=== PATIENT | female | born 1945 | race Caucasian/White ===

== ENCOUNTER 2023-03-03 09:11 | Outpatient (OUT) | payer MEDICARE, SELFPAY ==
[2023-03-03 09:48] LABS: Basophils Absolute Auto 0.2 10^3/uL (0.0-0.1); Basophils Percent Auto 1.4 % (0.2-2.0); Eosinophils Absolute Auto 0.3 10^3/uL (0.0-0.7); Eosinophils Percent Auto 2.7 % (0.9-7.0); Hematocrit 43.3 % (36.0-48.0); Hemoglobin 14.2 g/dL (12.0-16.0); Immature Granulocytes Abs Auto 0.06 10^3/uL (0.00-0.03); Immature Granulocytes Pct Auto 0.5 % (0.0-0.5); Lymphocytes Absolute Auto 4.6 10^3/uL (1.2-3.8); Lymphocytes Percent Auto 41.1 % (20.5-60.0); Mean Corpuscular HGB Conc 32.8 g/dL (29.9-35.2); Mean Corpuscular Hemoglobin 32.3 pg (26.7-34.0); Mean Corpuscular Volume 98.4 fL (81.0-99.0); Mean Platelet Volume 8.6 fL (9.5-13.5); Monocytes Absolute Auto 1.2 10^3/uL (0.3-0.8); Monocytes Percent Auto 10.6 % (1.7-12.0); Neutrophils Absolute Auto 4.9 10^3/uL (1.4-6.5); Neutrophils Percent Auto 43.7 % (43.0-75.0); Platelet Count 466 10^3/uL (150-450); Red Cell Distribution Width 14.8 % (11.0-15.0); White Blood Count 11.3 10^3/uL (4.0-11.0)
[2023-03-03 10:17] LABS: Alanine Aminotransferase 23 U/L (14-59); Albumin Globulin Ratio 0.9; Albumin Level 3.7 g/dL (3.4-5.0); Alkaline Phosphatase 69 U/L (46-116); Anion Gap 10.1; Aspartate Amino Transferase 16 U/L (15-37); Bilirubin Total 0.3 mg/dL (0.2-1.0); Calcium 9.3 mg/dL (8.5-10.1); Carbon Dioxide 31.7 mmol/L (21.0-32.0); Chloride 105 mmol/L (98-107); Estimated GFR (African America >60 (>=60); Estimated GFR (Non-African Ame >60 (>=60); Globulin 3.9 g/dL; Glucose 98 mg/dL (74-106); Lactate Dehydrogenase 164 U/L (81-234); Potassium 3.8 mmol/L (3.5-5.1); Sodium 143 mmol/L (136-145); Total Protein 7.6 g/dL (6.4-8.2)
== END 2023-03-03 09:12 | disposition home or self-care (01) ==
LOC: LAB 09:16
PROVIDERS: PCP Internal Medicine; Visit Provider Internal Medicine
DX: C83.30 Diffuse large B-cell lymphoma, unspecified site (principal)
CPT/HCPCS: 36415; 80053; 83615; 85025

== ENCOUNTER 2023-03-14 10:26 | Outpatient (OUT) | payer MEDICARE, SELFPAY ==
[2023-03-14 13:29] LABS: Basophils Absolute Auto 0.1 10^3/uL (0.0-0.1); Basophils Percent Auto 1.2 % (0.2-2.0); Eosinophils Absolute Auto 0.2 10^3/uL (0.0-0.7); Eosinophils Percent Auto 1.6 % (0.9-7.0); Hematocrit 45.3 % (36.0-48.0); Hemoglobin 15.1 g/dL (12.0-16.0); Immature Granulocytes Abs Auto 0.06 10^3/uL (0.00-0.03); Immature Granulocytes Pct Auto 0.5 % (0.0-0.5); Lymphocytes Absolute Auto 4.5 10^3/uL (1.2-3.8); Lymphocytes Percent Auto 40.5 % (20.5-60.0); Mean Corpuscular HGB Conc 33.3 g/dL (29.9-35.2); Mean Corpuscular Hemoglobin 32.5 pg (26.7-34.0); Mean Corpuscular Volume 97.4 fL (81.0-99.0); Monocytes Absolute Auto 1.2 10^3/uL (0.3-0.8); Monocytes Percent Auto 10.4 % (1.7-12.0); Neutrophils Absolute Auto 5.1 10^3/uL (1.4-6.5); Neutrophils Percent Auto 45.8 % (43.0-75.0); Platelet Count 420 10^3/uL (150-450); Red Blood Count 4.65 10^6/uL (4.20-5.40); Red Cell Distribution Width 14.6 % (11.0-15.0); White Blood Count 11.2 10^3/uL (4.0-11.0)
[2023-03-14 14:08] LABS: Lactate Dehydrogenase 247 U/L (81-234)
[2023-03-15 14:14] LABS: Albumin 4.1 g/dL (2.9-4.4); Alpha-1-Globulin 0.3 g/dL (0.0-0.4); Alpha-2-Globulin 1.2 g/dL (0.4-1.0); Free Kappa Lt Chains,S 39.6 mg/L (3.3-19.4); Free Lambda Lt Chains,S 19.8 mg/L (5.7-26.3); Gamma Globulin 1.2 g/dL (0.4-1.8); Immunoglobulin A, Qn, Serum 272 mg/dL (64-422); Immunoglobulin G, Qn, Serum 1260 mg/dL (586-1602); Immunoglobulin M, Qn, Serum 55 mg/dL (26-217); Protein, Total 8.1 g/dL (6.0-8.5)
[2023-03-17 16:09] LABS: Immunoglobulin E, Total 25 IU/mL (6-495)
== END 2023-03-14 10:27 | disposition home or self-care (01) ==
LOC: HEMC 10:27
PROVIDERS: PCP Internal Medicine; Visit Provider Internal Medicine Hematology & Oncology
DX: D72.829 Elevated white blood cell count, unspecified (principal); D75.839 Thrombocytosis, unspecified; C50.919 Malignant neoplasm of unspecified site of unspecified female breast; D72.820 Lymphocytosis (symptomatic)
CPT/HCPCS: 36415; 82784; 82785; 83615; 84155; 84165; 85025; 86334; G0463

== ENCOUNTER 2023-04-11 09:14 | Outpatient (OUT) | payer MEDICARE, SELFPAY | END 2023-04-11 09:15 | disposition home or self-care (01) | LOC: HEMC 09:14 | PROVIDERS: PCP Internal Medicine; Visit Provider Internal Medicine Hematology & Oncology | DX: D72.820 Lymphocytosis (symptomatic) (principal); C50.919 Malignant neoplasm of unspecified site of unspecified female breast; D75.839 Thrombocytosis, unspecified; D72.829 Elevated white blood cell count, unspecified | CPT/HCPCS: G0463 ==

== ENCOUNTER 2023-04-19 08:40 | Outpatient (OUT) | payer MEDICARE, SELFPAY ==
--- NOTE | 2023-04-19 08:52 | CT_ITS ---
The [address] [address] Patient Name: ZACK DARBY MRN: [id number] date: 1945 Sex: F Assigned Patient Location: LAB Current Patient Location: LAB Accession/Order Number: [id number] Exam Date: 04/19/2023 10:10 Report Date: 04/19/2023 11:26 At the request of: GUILLERMO URBINA Procedure: CT abdomen pelvis w con EXAM: CT abdomen pelvis w con HISTORY: Splenic Lymphoma, Abdominal Pain COMPARISON: None. TECHNIQUE: Axial CT images were obtained of the abdomen and pelvis with intravenous contrast. Multiplanar reconstructions were performed. ABDOMEN/PELVIS FINDINGS: Lower Chest: Unremarkable. Liver: Normal enhancement and contour. Biliary/Gallbladder: Prior cholecystectomy. Pancreas: Unremarkable. Spleen: Prior splenectomy. Adrenal Glands: Unremarkable. Kidneys: Cortical scarring is present at the upper pole of the left kidney. Gastrointestinal/Peritoneum: No acute abnormality. Moderate colonic diverticulosis is present. The appendix is not discretely visualized. No free air or free fluid. Vascular: There are mild to moderate scattered atherosclerotic calcifications. Lymph Nodes: No enlarged lymph nodes by CT size criteria. Pelvic Organs: Prior hysterectomy. Bladder: Unremarkable. Bones: No acute osseous abnormality. Moderate multilevel degenerative changes are present in the visualized spine. Soft tissues: Unremarkable. CT/CT abdomen pelvis w con IMPRESSION: 1. No acute abnormality of the abdomen and pelvis. 2. Prior splenectomy. 3. No evidence of lymphadenopathy. 4. Moderate colonic diverticulosis. 5. Prior cholecystectomy and hysterectomy. 6. Chronic scarring at the upper pole of the left kidney. Electronically authenticated by: ANTONIO THOMPSON Date: 04/19/2023 11:26
[2023-04-19 09:05] LABS: Estimated GFR (African America >60 (>=60); Estimated GFR (Non-African Ame >60 (>=60)
== END 2023-04-19 08:41 | disposition home or self-care (01) ==
LOC: LAB 08:41
PROVIDERS: PCP Internal Medicine; Visit Provider Internal Medicine Hematology & Oncology
DX: C50.919 Malignant neoplasm of unspecified site of unspecified female breast (principal); D72.820 Lymphocytosis (symptomatic); D75.839 Thrombocytosis, unspecified; D72.829 Elevated white blood cell count, unspecified; Z90.49 Acquired absence of other specified parts of digestive tract; K57.30 Diverticulosis of large intestine without perforation or abscess without bleeding; Z90.81 Acquired absence of spleen
CPT/HCPCS: 36415; 74177; 82565; 84520; Q9967

== ENCOUNTER 2023-05-09 07:44 | Outpatient (RCR) | payer MEDICARE, SELFPAY | END 2023-05-20 23:59 | disposition home or self-care (01) | LOC: INF 07:44 | PROVIDERS: PCP Internal Medicine; Visit Provider Internal Medicine Hematology & Oncology | DX: D72.829 Elevated white blood cell count, unspecified (principal); D75.839 Thrombocytosis, unspecified; C50.919 Malignant neoplasm of unspecified site of unspecified female breast; D72.820 Lymphocytosis (symptomatic) | CPT/HCPCS: G0463 ==

== ENCOUNTER 2023-07-07 13:48 | Outpatient (OUT) | payer MEDICARE, SELFPAY ==
--- NOTE | 2023-07-07 13:54 | MM_ITS ---
Patient Name: ZACK DARBY MR#: [id number] : 1945 Exam Date: 07/07/2023 Ordering Doctor: Shaikh Fidel Sales . RADIOLOGY REPORT PROCEDURE: MM TOMOSYNTHESIS SCREENING BI COMPARISON: MG MAMM SCREEN 3D JUAN MANUEL CAD, 06/28/2021. MG MAMM SCREEN 3D JUAN MANUEL CAD, 07/06/2022. INDICATIONS: Screening Calculator Name NCI Breast Cancer Risk Assessment Tool 5 Year Breast Cancer Risk 8.00% Lifetime Breast Cancer Risk 12.90% Personal Breast Cancer No Personal Ovarian Cancer No Treatments Spleenectomy, Chemo, Radiation Family Cancers Sister with breast cancer at age 45; Sister with breast cancer at age 77; Mother with multiple myeloma cancer at age ~72; Father with rectal cancer at age 62; Brother with prostate cancer at age 75; Brother with unknown cancer at age ~70. LOCATION: [facility] BREAST COMPOSITION: Heterogeneously dense,which may obscure small masses. FINDINGS: DIAGNOSTIC CATEGORY 2--BENIGN FINDING. NO CHANGE FROM COMPARISON. Scattered benign-appearing nodules are present. Scattered benign-appearing calcifications are present. RIGHT BREAST: No significant suspicious finding. LEFT BREAST: No significant suspicious finding. RECOMMENDATIONS: ROUTINE MAMMOGRAM AND CLINICAL EVALUATION IN 12 MONTHS. PLEASE NOTE: A NORMAL MAMMOGRAM DOES NOT EXCLUDE THE POSSIBILITY OF BREAST CANCER. A CLINICALLY SUSPICIOUS PALPABLE LUMP SHOULD BE BIOPSIED. Dictated by: Cristhian Jimenez MD on 07/07/2023 at 15:09 Approved by: Cristhian Jimenez MD on 07/07/2023 at 15:10
== END 2023-07-07 13:49 | disposition home or self-care (01) ==
LOC: MAMMO 13:50
PROVIDERS: PCP Internal Medicine; Visit Provider Internal Medicine
DX: Z12.31 Encounter for screening mammogram for malignant neoplasm of breast (principal); Z80.3 Family history of malignant neoplasm of breast; Z80.7 Family history of other malignant neoplasms of lymphoid, hematopoietic and related tissues; Z80.42 Family history of malignant neoplasm of prostate; Z80.9 Family history of malignant neoplasm, unspecified; Z80.8 Family history of malignant neoplasm of other organs or systems
CPT/HCPCS: 77063; 77067

== ENCOUNTER 2023-10-24 11:35 | Outpatient (OUT) | payer OTHER, SELFPAY ==
--- OUTSIDE RECORDS SUMMARY | 2023-10-24 11:53 | XMS_ITS | CCD ---
Author Name Unknown Address [address] [place] [address] Organization [facility] Care Team Providers Care Project Leader Name Role Phone WEST, DR MAMIE Arreola Consulting Unavailable HOUSE, DR ZUNIGA Attending Unavailable HOUSE, DR ZUNIGA Admitting Unavailable HOUSE, DR ZUNIGA Primary Care Unavailable HOUSE, DR ZUNIGA Consulting Unavailable HOUSE, DR ZUNIGA Primary Care Unavailable HOUSE, DR ZUNIGA Consulting Unavailable HOUSE, DR ZUNIGA Attending Unavailable HOUSE, DR ZUNIGA Admitting Unavailable FAWWAD, Attending Unavailable FAWWAD, Attending Unavailable Allergies Allergy Classification Reported Allergen(s) Allergy Type Date of Onset Reaction(s) Facility (1 source) Latex Drug allergy (disorder) [facility] Rep[facility] Problems Problem Classification Problem Date Documented Date Episodic/Chronic Malaise and fatigue (1 source) Other fatigue; Translations: [OTHER FATIGUE] Onset: 06-12-2022 Episodic Non-Hodgkin`s lymphoma (4 sources) Unspecified B-cell lymphoma, unspecified site; Translations: [UNS B-CELL LYMPHOMA UNSPECIFIE SITE] Onset: 06-08-2022 Chronic Other screening for suspected conditions (not mental disorders or infectious disease) (4 sources) Encounter for screening mammogram for malignant neoplasm of breast; Translations: [ENC SCR MAMMO MALIG NEOPLASM BREAST] Onset: 07-06-2022 Episodic Residual codes; unclassified (1 source) Family history of malignant neoplasm of breast; Translations: [FAMILY HX MALIG NEOPLASM OF BREAST] Onset: 07-09-2022 Episodic Residual codes; unclassified (1 source) Family history of other malignant neoplasms of lymphoid, hematopoietic and related tissues; Translations: [FAM HX OTH MAL MARCUS LYMPH HEMATPOETC] Onset: 07-09-2022 Episodic Residual codes; unclassified (1 source) Family history of malignant neoplasm of digestive organs; Translations: [FAM HX MALIG NEOPLASM DIGESTIV ORGN] Onset: 07-09-2022 Episodic Residual codes; unclassified (1 source) Family history of malignant neoplasm of prostate; Translations: [FAMILY HX MALIG NEOPLASM PROSTATE] Onset: 07-09-2022 Episodic Residual codes; unclassified (1 source) Family history of malignant neoplasm, unspecified; Translations: [FAM HX MALIGNANT NEOPLASM UNS] Onset: 07-09-2022 Episodic Results Test Name Value Interpretation Reference Range Facil ity MG MAMM SCREEN 3D JUAN MANUEL CADon 07-06-2022 MG MAMM SCREEN 3D JUAN MANUEL CAD Patient: ZACK DARBY Exam Date: 07/06/2022 : 1945 Gender:F Ordering : DR EFRAIN HOGAN DJeremy Admission #: [id number] Family : Order #: [id number] CLICK HERE TO VIEW EXAM RADIOLOGY REPORT PROCEDURE: MAMMOGRAM SCREENING 3D BILATERAL CAD COMPARISON: MG MAMM SCREEN 3D JUAN MANUEL CAD, 06/28/2021. MG MAMM SCREEN JUAN MANUEL W CAD, 06/26/2020. INDICATIONS: Screening mammography Calculator Name NCI Breast Cancer Risk Assessment Tool 5 Year Breast Cancer Risk 8.10% Lifetime Breast Cancer Risk 14.10% Personal Breast Cancer No Personal Ovarian Cancer No Treatments Spleenectomy, Chemo, Radiation Family Cancers Sister with breast cancer at age 45; Sister with breast cancer at age 77; Mother with multiple myeloma cancer at age 72; Father with rectal cancer at age 62; Brother with prostate cancer at age 75; Brother with unknown cancer at age 70. LOCATION: [facility] BREAST COMPOSITION: Heterogeneously dense,which may obscure small masses. FINDINGS: DIAGNOSTIC CATEGORY 2--BENIGN FINDING. NO CHANGE FROM COMPARISON. Scattered benign-appearing nodules are present. Scattered benign-appearing calcifications are present. Scattered benign-appearing lymph nodes are present. RIGHT BREAST: No significant suspicious finding. LEFT BREAST: No significant suspicious finding. RECOMMENDATIONS: ROUTINE MAMMOGRAM AND CLINICAL EVALUATION IN 12 MONTHS. PLEASE NOTE: A NORMAL MAMMOGRAM DOES NOT EXCLUDE THE POSSIBILITY OF BREAST CANCER. A CLINICALLY SUSPICIOUS PALPABLE LUMP SHOULD BE BIOPSIED. Dictated by: Mamie Freeman MD on 07/06/2022 at 15:11 Approved by: Mamie Freeman MD on 07/06/2022 at 15:13 Normal [facility] CBC AUTO DIFFon 06-08-2022 BASO # 0.1 103/ul Normal 0.0-0.1 [facility] Comment on above: Performed By: #### C BC #### [facility] [address] [address] [address] Suzi Pal Basophils/100 WBC (Bld) 1.2 % Normal 0.2-2.0 [facility] Comment on above: Performed By: #### C BC #### [facility] [address] [place] [address] Dr. Suzi Pal EO # 0.3 103/ul Normal 0.0-0.7 [facility] Comment on above: Performed By: #### C BC #### [facility] [address] [place] [address] Dr. Suzi Pal Eosinophils/100 WBC (Bld) 2.5 % Normal 0.9-7.0 [facility] Comment on above: Performed By: #### C BC #### [facility] [address] [place] [address] Dr. Suzi Pal Erythrocyte distribution width (RBC) [Ratio] 14.6 % Normal 11.0-15.0 [facility] Comment on above: Performed By: #### C BC #### [facility] [address] [place] [address] Dr. Suzi Pal Hematocrit (Bld) [Volume fraction] 43.7 % Normal 36.0-48.0 [facility] Comment on above: Performed By: #### C BC #### [facility] [address] [place] [address] Dr. Suzi Pal Hemoglobin (Bld) [Mass/Vol] 14.5 g/dL Normal 12.0-16.0 [facility] Comment on above: Performed By: #### C BC #### [facility] [address] [place] [address] Dr. Suzi Pal IG # 0.03 10e3/ul Normal 0.00-0.03 [facility] Comment on above: Performed By: #### C BC #### [facility] [address] [place] [address] Dr. Suzi Pal IG % 0.3 % Normal 0.0-0.5 [facility] Comment on above: Performed By: #### C BC #### [facility] [address] [address] [address] Suzi Pal LYMPH # 4.6 103/ul Critically high 1.2-3.8 [facility] Comment on above: Performed By: #### C BC #### [facility] [address] [place] [address] Dr. Suzi Pal Lymphocytes/100 WBC (Bld) 44.0 % Normal 20.5-60.0 [facility] Comment on above: Performed By: #### C BC #### [facility] [address] [place] [address] Dr. Suzi Pal MANUAL DIFF REQ NO Normal [facility] Comment on above: Performed By: #### C BC #### [facility] [address] [place] [address] Dr. Suzi Pal MCH (RBC) [Entitic mass] 32.4 pg Normal 26.7-34.0 [facility] Comment on above: Performed By: #### C BC #### [facility] [address] [place] [address] Dr. Suzi Pal MCHC (RBC) [Mass/Vol] 33.2 g/dL Normal 29.9-35.2 [facility] Comment on above: Performed By: #### C BC #### [facility] [address] [place] [address] Dr. Suzi Pal MCV (RBC) [Entitic vol] 97.8 fL Normal 81.0-99.0 [facility] Comment on above: Performed By: #### C BC #### [facility] [address] [place] [address] Dr. Suzi Pal MONO # 1.1 103/ul Critically high 0.3-0.8 [facility] Comment on above: Performed By: #### C BC #### [facility] [address] [place] [address] Dr. Suzi Pal Monocytes/100 WBC (Bld) 10.5 % Normal 1.7-12.0 [facility] Comment on above: Performed By: #### C BC #### [facility] [address] [place], [place] [id number] Dr. Suzi Pal NEUT # 4.3 103/ul Normal 1.4-6.5 [facility] Comment on above: Performed By: #### C BC #### [facility] [address] [place] [address] Dr. Suzi Pal Neutrophils/100 WBC (Bld) 41.5 % Critically low 43.0-75.0 [facility] Comment on above: Performed By: #### C BC #### [facility] [address] [place] [address] Dr. Suzi Pal Platelet mean volume (Bld) [Entitic vol] 8.9 fL Critically low 9.5-13.5 [facility] Comment on above: Performed By: #### C BC #### [facility] [address] [place] [address] Dr. Suzi Pal PLT 414 103/ul Normal 150-450 [facility] Comment on above: Performed By: #### C BC #### [facility] [address] [place] [address] Dr. Suzi Pal RBC 4.47 106/ul Normal 4.20-5.40 [facility] Comment on above: Performed By: #### C BC #### [facility] [address] [place] [address] Dr. Suzi Pal WBC 10.4 103/ul Normal 4.0-11.0 [facility] Comment on above: Performed By: #### C BC #### [facility] [address] [place] [address] Dr. Suzi Pal PROF 14(COMP METB)on 022 Albumin [Mass/Vol] 3.8 g/dL Normal 3.4-5.0 [facility] Comment on above: Performed By: #### T 4, CMP, TSH #### [facility] [address] [place] [address] Dr. Suzi Pal Albumin/Globulin [Mass ratio] 0.9 {ratio} Normal [facility] Comment on above: Performed By: #### T 4, CMP, TSH #### [facility] [address] [place] [address] Dr. Suzi Pal ALP [Catalytic activity/Vol] 68 U/L Normal 46-116 [facility] Comment on above: Performed By: #### T 4, CMP, TSH #### [facility] [address] [place] [address] Dr. Suzi Pal ALT [Catalytic activity/Vol] 23 U/L Normal 14-59 [facility] Comment on above: Performed By: #### T 4, CMP, TSH #### [facility] [address] [place] [address] Dr. Suzi Pal Anion gap [Moles/Vol] 11.0 mmol/L Normal [facility] Comment on above: Performed By: #### T 4, CMP, TSH #### [facility] [address] [place] [address] Dr. Suzi Pal AST [Catalytic activity/Vol] 16 U/L Normal 15-37 [facility] Comment on above: Performed By: #### T 4, CMP, TSH #### [facility] [address] [place] [address] Dr. Suzi Pal Bilirubin [Mass/Vol] 0.5 mg/dL Normal 0.2-1.0 [facility] Comment on above: Performed By: #### T 4, CMP, TSH #### [facility] [address] [place] [address] Dr. Suzi Pal Calcium [Mass/Vol] 9.6 mg/dL Normal 8.5-10.1 [facility] Comment on above: Performed By: #### T 4, CMP, TSH #### [facility] [address] [place] [address] Dr. Suzi Pal Chloride [Moles/Vol] 103 mmol/L Normal 98-107 [facility] Comment on above: Performed By: #### T 4, CMP, TSH #### [facility] [address] [place] [address] Dr. Suzi Pal CO2 [Moles/Vol] 31.8 mmol/L Normal 21.0-32.0 [facility] Comment on above: Performed By: #### T 4, CMP, TSH #### [facility] [address] [address] [address] Suzi Pal Creatinine [Mass/Vol] 0.75 mg/dL Normal 0.55-1.02 [facility] Comment on above: Performed By: #### T 4, CMP, TSH #### [facility] [address] [address] [address] Suzi Pal EGFR-AF MACANESE >60 Normal >=60 [facility] Comment on above: Performed By: #### T 4, CMP, TSH #### [facility] [address] [address] [address] Suzi Pal EGFR-NON AF MACANESE >60 Normal >=60 [facility] Comment on above: Performed By: #### T 4, CMP, TSH #### [facility] [address] [address] [address] Suzi Pal Globulin (S) [Mass/Vol] 4.0 g/dL Normal [facility] Comment on above: Performed By: #### T 4, CMP, TSH #### [facility] [address] [address] [address] Suzi Pal Glucose [Mass/Vol] 88 mg/dL Normal 74-106 [facility] Comment on above: Performed By: #### T 4, CMP, TSH #### [facility] [address] [address] [address] Suzi Pal Potassium [Moles/Vol] 3.8 mmol/L Normal 3.5-5.1 [facility] Comment on above: Performed By: #### T 4, CMP, TSH #### [facility] [address] [address] [address] Suzi Pal Protein [Mass/Vol] 7.8 g/dL Normal 6.4-8.2 [facility] Comment on above: Performed By: #### T 4, CMP, TSH #### [facility] [address] [address] [address] Suzi Pal Sodium [Moles/Vol] 142 mmol/L Normal 136-145 [facility] Comment on above: Performed By: #### T 4, CMP, TSH #### [facility] [address] [address] [address] Suzi Pal Urea nitrogen [Mass/Vol] 15.0 mg/dL Normal 7.0-18.0 [facility] Comment on above: Performed By: #### T 4, CMP, TSH #### [facility] [address] [address] [address] Suzi Pal Urea nitrogen/Creatinin e [Mass ratio] 20.0 mg/mg Normal [facility] Comment on above: Performed By: #### T 4, CMP, TSH #### [facility] [address] [place] [address] Dr. Suzi Pal T4on 06-08-2022 T4 [Mass/Vol] 7.80 ug/dL Normal 4.80-13.90 [facility] Comment on above: Performed By: #### T 4, CMP, TSH #### [facility] [address] [place] [address] Dr. Suzi Pal TSHon 06-08-2022 TSH 2.655 uIU/mL Normal 0.358-3.740 [facility] Comment on above: Performed By: #### T 4, CMP, TSH #### [facility] [address] [place] [address] Dr. Suzi Pal Complete Blood Count Auto Di ffon 04-06-2021 Basophils (Bld) [#/Vol] 0.2 10*3/uL Normal 0.0-0.2 [facility] Comment on above: Result Comment: PERF ORMED BY: [place] [id number] PATHOLOGIST RELATIONS COORDINATOR MORGAN MARTINEZ M.D. Performed By: #### C BC #### [facility] [address] [place] [address] [place] Basophils/100 WBC (Bld) 1.6 % Normal . [facility] Comment on above: Performed By: #### C BC #### [facility] [address] [place] [address] [place] Eosinophils (Bld) [#/Vol] 0.2 10*3/uL Normal 0.0-0.45 [facility] Comment on above: Performed By: #### C BC #### [facility] [address] Eosinophils/100 WBC (Bld) 1.7 % Normal . [facility] Comment on above: Performed By: #### C BC #### [facility] [address] Erythrocyte distribution width (RBC) [Ratio] 14.0 % Normal 11.9-15.3 [facility] Comment on above: Performed By: #### C BC #### [address] Hematocrit (Bld) [Volume fraction] 43.2 % Normal 34.0-46.4 [facility] Comment on above: Performed By: #### C BC #### [address] Hemoglobin (Bld) [Mass/Vol] 14.5 g/dL Normal 11.8-15.4 [facility] Comment on above: Performed By: #### C BC #### [address] Lymphocytes (Bld) [#/Vol] 4.9 10*3/uL High 1.00-4.8 [facility] Comment on above: Performed By: #### C BC #### [address] Lymphocytes/100 WBC (Bld) 46.0 % Normal . [facility] Comment on above: Performed By: #### C BC #### [address] MCH (RBC) [Entitic mass] 32.8 pg Normal 24.7-34.3 [facility] Comment on above: Performed By: #### C BC #### [address] MCV (RBC) [Entitic vol] 97.9 fL Normal 80-100 [facility] Comment on above: Performed By: #### C BC #### [facility] [address] Mean Corpuscular HGB Conc 33.5 g/dL Normal 32.0-35.0 [facility] Comment on above: Performed By: #### C BC #### [facility] [address] Monocytes (Bld) [#/Vol] 1.2 10*3/uL High 0.0-0.8 [facility] Comment on above: Performed By: #### C BC #### [facility] [address] Monocytes/100 WBC (Bld) 11.3 % Normal . [facility] Comment on above: Performed By: #### C BC #### [facility] [address] Neutrophils (Bld) [#/Vol] 4.2 10*3/uL Normal 1.8-7.7 [facility] Comment on above: Performed By: #### C BC #### [address] Neutrophils/100 WBC (Bld) 39.4 % Normal . [facility] Comment on above: Performed By: #### C BC #### [address] Nucleated RBC/100 WBC (Bld) [Ratio] 0.1 % Normal 0-0.5 [facility] Comment on above: Performed By: #### C BC #### [facility] [address] Platelet mean volume (Bld) [Entitic vol] 6.9 fL Normal 6.3-10.7 [facility] Comment on above: Performed By: #### C BC #### [facility] [address] [place] [address] [place] Platelets (Bld) [#/Vol] 445 10*3/uL Normal 150-450 [facility] Comment on above: Performed By: #### C BC #### [place] [address] [place] RBC (Bld) [#/Vol] 4.41 10*6/uL Normal 3.60-5.00 [facility] Comment on above: Performed By: #### C BC #### [facility] [address] [id number] [facility] WBC (Bld) [#/Vol] 10.8 10*3/uL Normal 4.5-11.0 [facility] Comment on above: Performed By: #### C BC #### [facility] [address] [place] [address] [facility] Encounters Encounter Date Encounter Type Care Provider Facility Start: 08-22-2023 End: 08-22-2023 ambulatory SHAIKH SCOTT Not Available Start: 08-02-2023 End: 08-02-2023 ambulatory SHAIKH SCOTT Not Available Start: 07-06-2022 End: 07-07-[address] MAMIE FREEMAN Facility:[facility] Start: 06-08-2022 End: 06-09-[address] EFRAIN HOGAN Facility:[facility] Payers Date Payer Category Payer Unknown [id number] 1945 Unknown [id number] [id number] [id number] 1945 Unknown [id number] [id number] 1945 Unknown [id number] 1945 Unknown [id number] Summary Purpose Family History No Family History Records FoundNo Family History Records FoundNo Family History Records Found Advance Directives No Advanced Directives Records FoundNo Advanced Directives Records FoundNo Advanced Directives Records Found Additional Source Comments INFORMATION SOURCE (unrecogn ized section and content) DATE CREATED AUTHOR 04/15/2021 [facility] DATE CREATED AUTHOR AUTHOR'S ORGANIZ ATION 07/10/2022 [facility] DATE CREATED AUTHOR AUTHOR'S ORGANIZ ATION 08/23/2023 [facility] FOR RECORDS PERTAINING TO PATIENTS WHO ARE OR HAVE BEEN ENROLLED IN A CHEMICAL DEPENDENCY/SUBSTANCEABUSE PROGRAM, SOME INFORMATION MAY BE OMITTED. This clinical summary was aggregated from multiple sources. Caution should be exercised in using it in the provision of clinical care. This summary normalizes information from multiple sources, and as a consequence, information in this document may materially change the coding, format and clinical context of patient data. In addition, data may be omitted in some cases. CLINICAL DECISIONS SHOULD BE BASED ON THE PRIMARY CLINICAL RECORDS. [facility] [employer] [facility]. provides no warranty or guarantee of the accuracy or completeness of information in this document.
[2023-10-24 12:09] LABS: Basophils Absolute Auto 0.2 10^3/uL (0.0-0.1); Eosinophils Absolute Auto 0.3 10^3/uL (0.0-0.7); Eosinophils Percent Auto 1.9 % (0.9-7.0); Hemoglobin 13.6 g/dL (12.0-16.0); Immature Granulocytes Abs Auto 0.05 10^3/uL (0.00-0.03); Immature Granulocytes Pct Auto 0.3 % (0.0-0.5); Lymphocytes Absolute Auto 4.7 10^3/uL (1.2-3.8); Lymphocytes Percent Auto 30.3 % (20.5-60.0); Mean Corpuscular HGB Conc 32.4 g/dL (29.9-35.2); Mean Corpuscular Hemoglobin 31.9 pg (26.7-34.0); Mean Corpuscular Volume 98.4 fL (81.0-99.0); Mean Platelet Volume 9.2 fL (9.5-13.5); Monocytes Absolute Auto 1.9 10^3/uL (0.3-0.8); Monocytes Percent Auto 12.5 % (1.7-12.0); Neutrophils Absolute Auto 8.4 10^3/uL (1.4-6.5); Platelet Count 398 10^3/uL (150-450); Red Blood Count 4.27 10^6/uL (4.20-5.40); Red Cell Distribution Width 14.9 % (11.0-15.0); White Blood Count 15.5 10^3/uL (4.0-11.0)
[2023-10-24 12:57] LABS: Lactate Dehydrogenase 158 U/L (81-234)
[2023-10-25 15:08] LABS: Albumin 3.7 g/dL (2.9-4.4); Alpha-1-Globulin 0.3 g/dL (0.0-0.4); Gamma Globulin 1.1 g/dL (0.4-1.8); Immunoglobulin A, Qn, Serum 239 mg/dL (64-422); Immunoglobulin G, Qn, Serum 1109 mg/dL (586-1602); Immunoglobulin M, Qn, Serum 53 mg/dL (26-217); Protein, Total 7.3 g/dL (6.0-8.5)
== END 2023-10-24 11:36 | disposition home or self-care (01) ==
LOC: LAB 11:37
PROVIDERS: PCP Internal Medicine; Visit Provider Internal Medicine Hematology & Oncology
DX: D72.829 Elevated white blood cell count, unspecified (principal); D75.839 Thrombocytosis, unspecified; D72.820 Lymphocytosis (symptomatic)
CPT/HCPCS: 36415; 82784; 83615; 84155; 84165; 85025; 86334

== ENCOUNTER 2023-11-14 11:15 | Outpatient (OUT) | payer OTHER, SELFPAY ==
--- OUTSIDE RECORDS SUMMARY | 2023-11-13 15:33 | XMS_ITS | CCD ---
Author Organization [facility] Care Team Providers Care Cert Pharmacy Tech Name Role Phone WEST, DR MAMIE Arreola Consulting Unavailable HOUSE, DR ZUNIGA Attending Unavailable HOUSE, DR ZUNIGA Admitting Unavailable HOUSE, DR ZUNIGA Primary Care Unavailable HOUSE, DR ZUNIGA Consulting Unavailable HOUSE, DR ZUNIGA Primary Care Unavailable HOUSE, DR ZUNIGA Consulting Unavailable HOUSE, DR ZUNIGA Attending Unavailable HOUSE, DR ZUNIGA Admitting Unavailable FAWWAD, Attending Unavailable FAWWAD, Attending Unavailable FAWWAD, Attending Unavailable Allergies Allergy Classification Reported Allergen(s) Allergy Type Date of Onset Reaction(s) Facility (1 source) Latex Drug allergy (disorder) [facility] Repository Problems Problem Classification Problem Date [...] 07/06/2022 : 1945 Gender:F Ordering : DR ERFAIN HOGAN DDanieleODaniele Admission #: [id number] Family : Order #: [id number] CLICK HERE TO VIEW EXAM RADIOLOGY REPORT [...] unknown cancer at age 69. LOCATION: [facility] BREAST COMPOSITION: Heterogeneously dense,which may obscure [...] MD on 07/06/2022 at 15:13 Normal [facility] CBC AUTO DIFFon 06-08-2022 BASO # 0.1 103/ul Normal 0.0-0.1 [facility] Comment on above: Performed By: #### C BC #### [facility] [address] [place] [address] Dr. Suzi Pal Basophils/100 WBC (Bld) 1.2 % Normal 0.2-2.0 [facility] Comment on above: Performed By: #### C BC #### [facility] [address] [place] [address] Dr. Suzi Pal EO # 0.3 103/ul Normal 0.0-0.7 [facility] Comment on above: Performed By: #### C BC #### [facility] [address] [place] [address] Dr. Suzi Pal Eosinophils/100 WBC (Bld) 2.5 % Normal 0.9-7.0 [facility] Comment on above: Performed By: #### C BC #### [facility] [address] [place] [address] Dr. Suzi Pal Erythrocyte distribution width (RBC) [Ratio] 14.6 % Normal 11.0-15.0 [facility] Comment on above: Performed By: #### C BC #### [facility] [address] [place] [address] Dr. Suzi Pal Hematocrit (Bld) [Volume fraction] 43.7 % Normal 36.0-48.0 [facility] Comment on above: Performed By: #### C BC #### [facility] [address] [place] [address] Dr. Suzi Pal Hemoglobin (Bld) [Mass/Vol] 14.5 g/dL Normal 12.0-16.0 [facility] Comment on above: Performed By: #### C BC #### [facility] [address] [place] [address] Dr. Suzi Pal IG # 0.03 10e3/ul Normal 0.00-0.03 [facility] Comment on above: Performed By: #### C BC #### [facility] [address] [place] [address] Dr. Suzi Pal IG % 0.3 % Normal 0.0-0.5 [facility] Comment on above: Performed By: #### C BC #### [facility] [address] [place] [address] Dr. Suzi Pal LYMPH # 4.6 103/ul Critically high 1.2-3.8 [facility] Comment on above: Performed By: #### C BC #### [facility] [address] [place] [address] Dr. Suzi Pal Lymphocytes/100 WBC (Bld) 44.0 % Normal 20.5-60.0 [facility] Comment on above: Performed By: #### C BC #### [facility] [address] [place] [address] Dr. Suzi Pal MANUAL DIFF REQ NO Normal [facility] Comment on above: Performed By: #### C BC #### [facility] [address] [place] [address] Dr. Suzi Pal MCH (RBC) [Entitic mass] 32.4 pg Normal 26.7-34.0 [facility] Comment on above: Performed By: #### C BC #### [facility] [address] [place] [address] Dr. Suzi Pal MCHC (RBC) [Mass/Vol] 33.2 g/dL Normal 29.9-35.2 [facility] Comment on above: Performed By: #### C BC #### [facility] [address] [place] [address] Dr. Suzi Pal MCV (RBC) [Entitic vol] 97.8 fL Normal 81.0-99.0 [facility] Comment on above: Performed By: #### C BC #### [facility] [address] [place] [address] Dr. Suzi Pal MONO # 1.1 103/ul Critically high 0.3-0.8 [facility] Comment on above: Performed By: #### C BC #### [facility] [address] [place] [address] Dr. Suzi Pal Monocytes/100 WBC (Bld) 10.5 % Normal 1.7-12.0 [facility] Comment on above: Performed By: #### C BC #### [facility] [address] [place] [address] Dr. Suzi Pal NEUT # 4.3 103/ul Normal 1.4-6.5 [facility] Comment on above: Performed By: #### C BC #### [facility] [address] [place] [address] Dr. Suzi Pal Neutrophils/100 WBC (Bld) 41.5 % Critically low 43.0-75.0 [facility] Comment on above: Performed By: #### C BC #### [facility] [address] [place] [address] Dr. Suzi Pal Platelet mean volume (Bld) [Entitic vol] 8.9 fL Critically low 9.5-13.5 [facility] Comment on above: Performed By: #### C BC #### [facility] [address] [place] [address] Dr. Suzi Pal PLT 414 103/ul Normal 150-450 [facility] Comment on above: Performed By: #### C BC #### [facility] [address] [place] [address] Dr. Suzi Pal RBC 4.47 106/ul Normal 4.20-5.40 [facility] Comment on above: Performed By: #### C BC #### [facility] [address] [place] [address] Dr. Suzi Pal WBC 10.4 103/ul Normal 4.0-11.0 [facility] Comment on above: Performed By: #### C BC #### [facility] [address] [place] [address] Dr. Suzi Pal PROF 14(COMP METB)on 022 Albumin [Mass/Vol] 3.8 g/dL Normal 3.4-5.0 [facility] Comment on above: Performed By: #### T 4, CMP, TSH #### [facility] [address] [place] [address] Dr. Suzi Pal Albumin/Globulin [Mass ratio] 0.9 {ratio} Normal [facility] Comment on above: Performed By: #### T 4, CMP, TSH #### [facility] [address] [place] [address] Dr. Suzi Pal ALP [Catalytic activity/Vol] 68 U/L Normal 46-116 [facility] Comment on above: Performed By: #### T 4, CMP, TSH #### [facility] [address] [place] [address] Dr. Suzi Pal ALT [Catalytic activity/Vol] 23 U/L Normal 14-59 [facility] Comment on above: Performed By: #### T 4, CMP, TSH #### [facility] [address] [place] [address] Dr. Suzi Pal Anion gap [Moles/Vol] 11.0 mmol/L Normal [facility] Comment on above: Performed By: #### T 4, CMP, TSH #### [facility] [address] [place] [address] Dr. Suzi Pal AST [Catalytic activity/Vol] 16 U/L Normal 15-37 [facility] Comment on above: Performed By: #### T 4, CMP, TSH #### [facility] [address] [place] [address] Dr. Suzi Pal Bilirubin [Mass/Vol] 0.5 mg/dL Normal 0.2-1.0 [facility] Comment on above: Performed By: #### T 4, CMP, TSH #### [facility] [address] [place] [address] Dr. Suzi Pal Calcium [Mass/Vol] 9.6 mg/dL Normal 8.5-10.1 [facility] Comment on above: Performed By: #### T 4, CMP, TSH #### [facility] [address] [place] [address] Dr. Suzi Pal Chloride [Moles/Vol] 103 mmol/L Normal 98-107 [facility] Comment on above: Performed By: #### T 4, CMP, TSH #### [facility] [address] [place] [address] Dr. Suzi Pal CO2 [Moles/Vol] 31.8 mmol/L Normal 21.0-32.0 [facility] Comment on above: Performed By: #### T 4, CMP, TSH #### [facility] [address] [address] [address] Suzi Pal Creatinine [Mass/Vol] 0.75 mg/dL Normal 0.55-1.02 [facility] Comment on above: Performed By: #### T 4, CMP, TSH #### [facility] [address] [place] [address] Dr. Suzi Pal EGFR-AF GUAMANIAN >60 Normal >=60 [facility] Comment on above: Performed By: #### T 4, CMP, TSH #### [facility] [address] [address] [address] Suzi Pal EGFR-NON AF GUAMANIAN >60 Normal >=60 [facility] Comment on above: Performed By: #### T 4, CMP, TSH #### [facility] [address] [place] [address] Dr. Suzi Pal Globulin (S) [Mass/Vol] 4.0 g/dL Normal [facility] Comment on above: Performed By: #### T 4, CMP, TSH #### [facility] [address] [place] [address] Dr. Suzi Pal Glucose [Mass/Vol] 88 mg/dL Normal 74-106 [facility] Comment on above: Performed By: #### T 4, CMP, TSH #### [facility] [address] [place] [address] Dr. Suzi Pal Potassium [Moles/Vol] 3.8 mmol/L Normal 3.5-5.1 [facility] Comment on above: Performed By: #### T 4, CMP, TSH #### [facility] [address] [place] [address] Dr. Suzi Pal Protein [Mass/Vol] 7.8 g/dL Normal 6.4-8.2 [facility] Comment on above: Performed By: #### T 4, CMP, TSH #### [facility] [address] [place] [address] Dr. Suzi Pal Sodium [Moles/Vol] 142 mmol/L Normal 136-145 [facility] Comment on above: Performed By: #### T 4, CMP, TSH #### [facility] [address] [address] [address] Suzi Pal Urea nitrogen [Mass/Vol] 15.0 mg/dL Normal 7.0-18.0 [facility] Comment on above: Performed By: #### T 4, CMP, TSH #### [facility] [address] [address] [address] Suzi Pal Urea nitrogen/Creatinin e [Mass ratio] 20.0 mg/mg Normal [facility] Comment on above: Performed By: #### T 4, CMP, TSH #### [facility] [address] [address] [address] Suzi Pal T4on 06-08-2022 T4 [Mass/Vol] 7.80 ug/dL Normal 4.80-13.90 [facility] Comment on above: Performed By: #### T 4, CMP, TSH #### [facility] [address] [address] [address] Suzi Pal TSHon 06-08-2022 TSH 2.655 uIU/mL Normal 0.358-3.740 [facility] Comment on above: Performed By: #### T 4, CMP, TSH #### [facility] [address] [address] [address] Suzi Pal Complete Blood Count Auto Di ffon 04-06-2021 Basophils (Bld) [#/Vol] 0.2 10*3/uL Normal 0.0-0.2 [facility] Comment on above: Result Comment: PERF ORMED BY: [place] [address] PATHOLOGIST REHAB TRAINER MORGAN MARTINEZ M.D. Performed By: #### C BC #### [facility] [address] [place] [address] [place] Basophils/100 WBC (Bld) 1.6 % Normal . [facility] Comment on above: Performed By: #### C BC #### [facility] [address] Eosinophils (Bld) [#/Vol] 0.2 10*3/uL Normal 0.0-0.45 [facility] Comment on above: Performed By: #### C BC #### [place] [address] [place] Eosinophils/100 WBC (Bld) 1.7 % Normal . [facility] Comment on above: Performed By: #### C BC #### [address] Erythrocyte distribution width (RBC) [Ratio] 14.0 % Normal 11.9-15.3 [facility] Comment on above: Performed By: #### C BC #### [address] Hematocrit (Bld) [Volume fraction] 43.2 % Normal 34.0-46.4 [facility] Comment on above: Performed By: #### C BC #### [address] Hemoglobin (Bld) [Mass/Vol] 14.5 g/dL Normal 11.8-15.4 [facility] Comment on above: Performed By: #### C BC #### [address] Lymphocytes (Bld) [#/Vol] 4.9 10*3/uL High 1.00-4.8 [facility] Comment on above: Performed By: #### C BC #### [address] Lymphocytes/100 WBC (Bld) 46.0 % Normal . [facility] Comment on above: Performed By: #### C BC #### [address] MCH (RBC) [Entitic mass] 32.8 pg Normal 24.7-34.3 [facility] Comment on above: Performed By: #### C BC #### [address] MCV (RBC) [Entitic vol] 97.9 fL Normal 80-100 [facility] Comment on above: Performed By: #### C BC #### [facility] [address] Mean Corpuscular HGB Conc 33.5 g/dL Normal 32.0-35.0 [facility] Comment on above: Performed By: #### C BC #### [address] Monocytes (Bld) [#/Vol] 1.2 10*3/uL High 0.0-0.8 [facility] Comment on above: Performed By: #### C BC #### [address] Monocytes/100 WBC (Bld) 11.3 % Normal . [facility] Comment on above: Performed By: #### C BC #### [address] Neutrophils (Bld) [#/Vol] 4.2 10*3/uL Normal 1.8-7.7 [facility] Comment on above: Performed By: #### C BC #### [address] Neutrophils/100 WBC (Bld) 39.4 % Normal . [facility] Comment on above: Performed By: #### C BC #### [address] Nucleated RBC/100 WBC (Bld) [Ratio] 0.1 % Normal 0-0.5 [facility] Comment on above: Performed By: #### C BC #### [address] Platelet mean volume (Bld) [Entitic vol] 6.9 fL Normal 6.3-10.7 [facility] Comment on above: Performed By: #### C BC #### [place] [address] [place] Platelets (Bld) [#/Vol] 445 10*3/uL Normal 150-450 [facility] Comment on above: Performed By: #### C BC #### [place] [address] [place] RBC (Bld) [#/Vol] 4.41 10*6/uL Normal 3.60-5.00 [facility] Comment on above: Performed By: #### C BC #### [facility] [address] [id number] [facility] WBC (Bld) [#/Vol] 10.8 10*3/uL Normal 4.5-11.0 [facility] Comment on above: Performed By: #### C BC #### [facility] [address] [place] [address] [facility] Encounters Encounter Date Encounter Type Care Provider Facility Start: 10-30-2023 End: 10-30-2023 ambulatory CARREON FAWWAD Not Available Start: 08-22-2023 End: 08-22-2023 ambulatory CARREON FAWWAD Not Available Start: 08-02-2023 End: 08-02-2023 ambulatory CARREON FAWWAD Not Available Start: 07-06-2022 End: 07-07-[address] MAMIE FREEMAN Facility:[facility] Start: 06-08-2022 End: 06-09-[address] EFRAIN HOGAN Facility:[facility] Payers Date Payer Category Payer Unknown [id number] 1960 Unknown [id number] 1945 Unknown [id number] 1945 Unknown [id number] 1945 Unknown [id number] [id number] 1945 Unknown [id number] 1945 Unknown [id number] Summary Purpose Family History No Family History Records FoundNo Family History Records FoundNo Family History Records Found Advance Directives No Advanced Directives Records FoundNo Advanced Directives Records FoundNo Advanced Directives Records Found Additional Source Comments INFORMATION SOURCE (unrecogn ized section and content) DATE CREATED AUTHOR 04/15/2021 [facility] DATE CREATED AUTHOR AUTHOR'S ORGANIZ ATION 07/10/2022 [facility] DATE CREATED AUTHOR AUTHOR'S ORGANIZ ATION 10/31/2023 [facility] FOR RECORDS PERTAINING TO PATIENTS WHO ARE [...] BE BASED ON THE PRIMARY CLINICAL RECORDS. [facility] [employer] provides no warranty or guarantee of the accuracy or completeness of information in this document.
--- OUTSIDE RECORDS SUMMARY | 2023-11-14 09:39 | XMS_ITS | CCD ---
Author Organization [facility] Care Team Providers Care Principal Administrative Clerk Name Role Phone WEST, DR MAMIE Arreola [...] (1 source) Latex Drug allergy (disorder) [facility] Repository Problems Problem Classification Problem Date [...] 1945 Gender:F Ordering : DR EFRAIN HOGAN DDanieleODaniele Admission #: [id number] Family : Order #: [id number] CLICK HERE TO VIEW EXAM RADIOLOGY REPORT [...] unknown cancer at age 69. LOCATION: [facility] BREAST COMPOSITION: Heterogeneously dense,which may obscure [...] PALPABLE LUMP SHOULD BE BIOPSIED. Dictated by: Maime Freeman MD on 07/06/2022 at 15:11 Approved by: Mamie Freeman MD on 07/06/2022 at 15:13 Normal [facility] CBC AUTO DIFFon 06-08-2022 BASO # 0.1 103/ul Normal 0.0-0.1 [facility] Comment on above: Performed By: #### C BC #### [facility] [address] [place] [address] Dr. Suzi Pal Basophils/100 WBC (Bld) 1.2 % Normal 0.2-2.0 [facility] Comment on above: Performed By: #### C BC #### [facility] [address] [place] [address] Dr. Suzi Pal EO # 0.3 103/ul Normal 0.0-0.7 [facility] Comment on above: Performed By: #### C BC #### [facility] [address] [place] [address] Dr. Suzi Pal Eosinophils/100 WBC (Bld) 2.5 % Normal 0.9-7.0 [facility] Comment on above: Performed By: #### C BC #### [facility] [address] [place] [address] Dr. Suzi Pal Erythrocyte distribution width (RBC) [Ratio] 14.6 % Normal 11.0-15.0 [facility] Comment on above: Performed By: #### C BC #### [facility] [address] [place] [address] Dr. Suzi Pal Hematocrit (Bld) [Volume fraction] 43.7 % Normal 36.0-48.0 [facility] Comment on above: Performed By: #### C BC #### [facility] [address] [place] [address] Dr. Suzi Pal Hemoglobin (Bld) [Mass/Vol] 14.5 g/dL Normal 12.0-16.0 [facility] Comment on above: Performed By: #### C BC #### [facility] [address] [place] [address] Dr. Suzi Pal IG # 0.03 10e3/ul Normal 0.00-0.03 [facility] Comment on above: Performed By: #### C BC #### [facility] [address] [place] [address] Dr. Suzi Pal IG % 0.3 % Normal 0.0-0.5 [facility] Comment on above: Performed By: #### C BC #### [facility] [address] [place] [address] Dr. Suzi Pal LYMPH # 4.6 103/ul Critically high 1.2-3.8 [facility] [place] Comment on above: Performed By: #### C BC #### [facility] [address] [place] [address] Dr. Suzi Pal Lymphocytes/100 WBC (Bld) 44.0 % Normal 20.5-60.0 [facility] Comment on above: Performed By: #### C BC #### [facility] [address] [place] [address] Dr. Suzi Pal MANUAL DIFF REQ NO Normal [facility] [place] Comment on above: Performed By: #### C BC #### [facility] [address] [place] [address] Dr. Suzi Pal MCH (RBC) [Entitic mass] 32.4 pg Normal 26.7-34.0 [facility] Comment on above: Performed By: #### C BC #### [facility] [address] [place] [address] Dr. Suzi Pal MCHC (RBC) [Mass/Vol] 33.2 g/dL Normal 29.9-35.2 [facility] Comment on above: Performed By: #### C BC #### [facility] [address] [place] [address] Dr. Suzi Pal MCV (RBC) [Entitic vol] 97.8 fL Normal 81.0-99.0 [facility] Comment on above: Performed By: #### C BC #### [facility] [address] [place] [address] Dr. Suzi Pal MONO # 1.1 103/ul Critically high 0.3-0.8 [facility] [place] Comment on above: Performed By: #### C BC #### [facility] [address] [place] [address] Dr. Suzi Pal Monocytes/100 WBC (Bld) 10.5 % Normal 1.7-12.0 [facility] Comment on above: Performed By: #### C BC #### [facility] [address] [place] [address] Dr. Suzi Pal NEUT # 4.3 103/ul Normal 1.4-6.5 [facility] Comment on above: Performed By: #### C BC #### [facility] [address] [place] [address] Dr. Suzi Pal Neutrophils/100 WBC (Bld) 41.5 % Critically low 43.0-75.0 [facility] Comment on above: Performed By: #### C BC #### [facility] [address] [place] [address] Dr. Suzi Pal Platelet mean volume (Bld) [Entitic vol] 8.9 fL Critically low 9.5-13.5 [facility] Comment on above: Performed By: #### C BC #### [facility] [address] [place] [address] Dr. Suzi Pal PLT 414 103/ul Normal 150-450 [facility] Comment on above: Performed By: #### C BC #### [facility] [address] [place] [address] Dr. Suzi Pal RBC 4.47 106/ul Normal 4.20-5.40 [facility] Comment on above: Performed By: #### C BC #### [facility] [address] [place] [address] Dr. Suzi Pal WBC 10.4 103/ul Normal 4.0-11.0 [facility] Comment on above: Performed By: #### C BC #### [facility] [address] [place] [address] Dr. Suzi Pal PROF 14(COMP METB)on 022 Albumin [Mass/Vol] 3.8 g/dL Normal 3.4-5.0 [facility] Comment on above: Performed By: #### T 4, CMP, TSH #### [facility] [address] [place] [address] Dr. Suzi Pal Albumin/Globulin [Mass ratio] 0.9 {ratio} Normal [facility] Comment on above: Performed By: #### T 4, CMP, TSH #### [facility] [address] [place] [address] Dr. Suzi Pal ALP [Catalytic activity/Vol] 68 U/L Normal 46-116 [facility] Comment on above: Performed By: #### T 4, CMP, TSH #### [facility] [address] [place] [address] Dr. Suzi Pal ALT [Catalytic activity/Vol] 23 U/L Normal 14-59 [facility] Comment on above: Performed By: #### T 4, CMP, TSH #### [facility] [address] [place] [address] Dr. Suzi Pal Anion gap [Moles/Vol] 11.0 mmol/L Normal [facility] Comment on above: Performed By: #### T 4, CMP, TSH #### [facility] [address] [place] [address] Dr. Suzi Pal AST [Catalytic activity/Vol] 16 U/L Normal 15-37 [facility] Comment on above: Performed By: #### T 4, CMP, TSH #### [facility] [address] [place] [address] Dr. Suzi Pal Bilirubin [Mass/Vol] 0.5 mg/dL Normal 0.2-1.0 [facility] Comment on above: Performed By: #### T 4, CMP, TSH #### [facility] [address] [place] [address] Dr. Suzi Pal Calcium [Mass/Vol] 9.6 mg/dL Normal 8.5-10.1 [facility] Comment on above: Performed By: #### T 4, CMP, TSH #### [facility] [address] [place] [address] Dr. Suzi Pal Chloride [Moles/Vol] 103 mmol/L Normal 98-107 [facility] Comment on above: Performed By: #### T 4, CMP, TSH #### [facility] [address] [place] [address] Dr. Suzi Pal CO2 [Moles/Vol] 31.8 mmol/L Normal 21.0-32.0 [facility] Comment on above: Performed By: #### T 4, CMP, TSH #### [facility] [address] [address] [address] Suzi Pal Creatinine [Mass/Vol] 0.75 mg/dL Normal 0.55-1.02 [facility] Comment on above: Performed By: #### T 4, CMP, TSH #### [facility] [address] [place] [address] Dr. Suzi Pal EGFR-AF GERMAN >60 Normal >=60 [facility] Comment on above: Performed By: #### T 4, CMP, TSH #### [facility] [address] [address] [address] Suzi Pal EGFR-NON AF GERMAN >60 Normal >=60 [facility] Comment on above: Performed By: #### T 4, CMP, TSH #### [facility] [address] [place] [address] Dr. Suzi Pal Globulin (S) [Mass/Vol] 4.0 g/dL Normal [facility] Comment on above: Performed By: #### T 4, CMP, TSH #### [facility] [address] [place] [address] Dr. Suzi Pal Glucose [Mass/Vol] 88 mg/dL Normal 74-106 [facility] Comment on above: Performed By: #### T 4, CMP, TSH #### [facility] [address] [place] [address] Dr. Suzi Pal Potassium [Moles/Vol] 3.8 mmol/L Normal 3.5-5.1 [facility] Comment on above: Performed By: #### T 4, CMP, TSH #### [facility] [address] [place] [address] Dr. Suzi Pal Protein [Mass/Vol] 7.8 g/dL Normal 6.4-8.2 [facility] Comment on above: Performed By: #### T 4, CMP, TSH #### [facility] [address] [place] [address] Dr. Suzi Pal Sodium [Moles/Vol] 142 mmol/L Normal 136-145 [facility] Comment on above: Performed By: #### T 4, CMP, TSH #### [facility] [address] [address] [address] Suzi Pal Urea nitrogen [Mass/Vol] 15.0 mg/dL Normal 7.0-18.0 [facility] Comment on above: Performed By: #### T 4, CMP, TSH #### [facility] [address] [address] [address] Suzi Pal Urea nitrogen/Creatinin e [Mass ratio] 20.0 mg/mg Normal [facility] Comment on above: Performed By: #### T 4, CMP, TSH #### [facility] [address] [address] [address] Suzi Pal T4on 06-08-2022 T4 [Mass/Vol] 7.80 ug/dL Normal 4.80-13.90 [facility] Comment on above: Performed By: #### T 4, CMP, TSH #### [facility] [address] [address] [address] Suzi Pal TSHon 06-08-2022 TSH 2.655 uIU/mL Normal 0.358-3.740 [facility] Comment on above: Performed By: #### T 4, CMP, TSH #### [facility] [address] [address] [address] Suzi Pal Complete Blood Count Auto Di ffon 04-06-2021 Basophils (Bld) [#/Vol] 0.2 10*3/uL Normal 0.0-0.2 [facility] Comment on above: Result Comment: PERF ORMED BY: [place] [address] PATHOLOGIST WAD LUBRICATOR MORGAN MARTINEZ M.D. Performed By: #### C BC #### [facility] [address] [place] [address] [place] Basophils/100 WBC (Bld) 1.6 % Normal . [facility] Comment on above: Performed By: #### C BC #### [facility] [address] Eosinophils (Bld) [#/Vol] 0.2 10*3/uL Normal 0.0-0.45 [facility] Comment on above: Performed By: #### C BC #### [place] [address] [place] Eosinophils/100 WBC (Bld) 1.7 % Normal . [facility] Comment on above: Performed By: #### C BC #### [address] Erythrocyte distribution width (RBC) [Ratio] 14.0 % Normal 11.9-15.3 [facility] Comment on above: Performed By: #### C BC #### [address] Hematocrit (Bld) [Volume fraction] 43.2 % Normal 34.0-46.4 [facility] Comment on above: Performed By: #### C BC #### [address] Hemoglobin (Bld) [Mass/Vol] 14.5 g/dL Normal 11.8-15.4 [facility] Comment on above: Performed By: #### C BC #### [address] Lymphocytes (Bld) [#/Vol] 4.9 10*3/uL High 1.00-4.8 [facility] Comment on above: Performed By: #### C BC #### [address] Lymphocytes/100 WBC (Bld) 46.0 % Normal . [facility] Comment on above: Performed By: #### C BC #### [address] MCH (RBC) [Entitic mass] 32.8 pg Normal 24.7-34.3 [facility] Comment on above: Performed By: #### C BC #### [address] MCV (RBC) [Entitic vol] 97.9 fL Normal 80-100 [facility] Comment on above: Performed By: #### C BC #### [facility] [address] Mean Corpuscular HGB Conc 33.5 g/dL Normal 32.0-35.0 [facility] Comment on above: Performed By: #### C BC #### [address] Monocytes (Bld) [#/Vol] 1.2 10*3/uL High 0.0-0.8 [facility] Comment on above: Performed By: #### C BC #### [address] Monocytes/100 WBC (Bld) 11.3 % Normal . [facility] Comment on above: Performed By: #### C BC #### [address] Neutrophils (Bld) [#/Vol] 4.2 10*3/uL Normal 1.8-7.7 [facility] Comment on above: Performed By: #### C BC #### [address] Neutrophils/100 WBC (Bld) 39.4 % Normal . [facility] Comment on above: Performed By: #### C BC #### [address] Nucleated RBC/100 WBC (Bld) [Ratio] 0.1 % Normal 0-0.5 [facility] Comment on above: Performed By: #### C BC #### [address] Platelet mean volume (Bld) [Entitic vol] 6.9 fL Normal 6.3-10.7 [facility] Comment on above: Performed By: #### C BC #### [place] [address] [place] Platelets (Bld) [#/Vol] 445 10*3/uL Normal 150-450 [facility] Comment on above: Performed By: #### C BC #### [place] [address] [place] RBC (Bld) [#/Vol] 4.41 10*6/uL Normal 3.60-5.00 [facility] Comment on above: Performed By: #### C BC #### [facility] [address] [id number] [facility] WBC (Bld) [#/Vol] 10.8 10*3/uL Normal 4.5-11.0 [facility] Comment on above: Performed By: #### C BC #### [facility] [address] [place] [address] [facility] Encounters Encounter Date Encounter Type Care Provider Facility Start: 10-30-2023 End: 10-30-2023 ambulatory CARREON FAWWAD Not Available Start: 08-22-2023 End: 08-22-2023 ambulatory CARREON FAWWAD Not Available Start: 08-02-2023 End: 08-02-2023 ambulatory CARREON FAWWAD Not Available Start: 07-06-2022 End: 07-07-[address] MAMIE FREEMAN Facility:[facility] Start: 06-08-2022 End: 06-09-[address] EFRAIN HOGAN Facility:[facility] Payers Date Payer Category Payer Unknown [id number] Unknown [id number] 1945 Unknown [id number] [id number] [id number] 1945 Unknown [id number] 1945 Unknown [id number] 2.16.84 [id number] 1945 Unknown [id number] 1945 Unknown [id number] Summary Purpose Family History No Family History Records FoundNo Family History Records FoundNo Family History Records Found Advance Directives No Advanced Directives Records FoundNo Advanced Directives Records FoundNo Advanced Directives Records Found Additional Source Comments INFORMATION SOURCE (unrecogn ized section and content) DATE CREATED AUTHOR 04/15/2021 [facility] DATE CREATED AUTHOR AUTHOR'S ORGANIZ ATION 07/10/2022 [facility] DATE CREATED AUTHOR AUTHOR'S ORGANIZ ATION 10/31/2023 [facility] FOR RECORDS PERTAINING TO PATIENTS WHO [...] BE BASED ON THE PRIMARY CLINICAL RECORDS. [facility] [employer] provides no warranty or guarantee of the accuracy or completeness of information in this document.
--- OUTSIDE RECORDS SUMMARY | 2023-11-14 11:23 | XMS_ITS | CCD ---
Author Organization [facility] Care Team Providers Care Sulfur Chloride Operator Name Role Phone WEST, DR MAMIE Arreola [...] (1 source) Latex Drug allergy (disorder) The [facility] Repository Problems Problem Classification Problem Date Documented [...] 1945 Gender:F Ordering : DR EFRAIN HOGAN DDanieleODanieel Admission #: [id number] Family : Order #: [id number] CLICK HERE TO VIEW EXAM RADIOLOGY REPORT [...] unknown cancer at age 69. LOCATION: The [facility] BREAST COMPOSITION: Heterogeneously dense,which may obscure small [...] MD on 07/06/2022 at 15:13 Normal The [facility] CBC AUTO DIFFon 06-08-2022 BASO # 0.1 103/ul Normal 0.0-0.1 [facility] Comment on above: Performed By: #### C BC #### [facility] [address] [place] [address] Dr. Suzi Pal Basophils/100 WBC (Bld) 1.2 % Normal 0.2-2.0 [facility] Comment on above: Performed By: #### C BC #### [facility] [address] [place] [address] Dr. Suzi Pal EO # 0.3 103/ul Normal 0.0-0.7 The [facility] Comment on above: Performed By: #### C BC #### [facility] [address] [place] [address] Dr. Suzi Pal Eosinophils/100 WBC (Bld) 2.5 % Normal 0.9-7.0 [facility] Comment on above: Performed By: #### C BC #### [facility] [address] [place] [address] Dr. Suzi Pal Erythrocyte distribution width (RBC) [Ratio] 14.6 % Normal 11.0-15.0 [facility] Comment on above: Performed By: #### C BC #### [facility] [address] [place] [address] Dr. Suzi Pal Hematocrit (Bld) [Volume fraction] 43.7 % Normal 36.0-48.0 [facility] Comment on above: Performed By: #### C BC #### [facility] [address] [place] [address] Dr. Suzi Pal Hemoglobin (Bld) [Mass/Vol] 14.5 g/dL Normal 12.0-16.0 [facility] Comment on above: Performed By: #### C BC #### [facility] [address] [place] [address] Dr. Suzi aPl IG # 0.03 10e3/ul Normal 0.00-0.03 [facility] Comment on above: Performed By: #### C BC #### [facility] [address] [place] [address] Dr. Suzi Pal IG % 0.3 % Normal 0.0-0.5 The [facility] Comment on above: Performed By: #### C BC #### [facility] [address] [place] [address] Dr. Suzi Pal LYMPH # 4.6 103/ul Critically high 1.2-3.8 [facility] Comment on above: Performed By: #### C BC #### [facility] [address] [place] [address] Dr. Suzi Pal Lymphocytes/100 WBC (Bld) 44.0 % Normal 20.5-60.0 [facility] Comment on above: Performed By: #### C BC #### [facility] [address] [place] [address] Dr. Suzi Pal MANUAL DIFF REQ NO Normal [facility] Comment on above: Performed By: #### C BC #### [facility] [address] [place] [address] Dr. Suzi Pal MCH (RBC) [Entitic mass] 32.4 pg Normal 26.7-34.0 [facility] Comment on above: Performed By: #### C BC #### [facility] [address] [place] [address] Dr. Suzi Pal MCHC (RBC) [Mass/Vol] 33.2 g/dL Normal 29.9-35.2 [facility] Comment on above: Performed By: #### C BC #### [facility] [address] [place] [address] Dr. Suzi Pal MCV (RBC) [Entitic vol] 97.8 fL Normal 81.0-99.0 [facility] Comment on above: Performed By: #### C BC #### [facility] [address] [place] [address] Dr. Suzi Pal MONO # 1.1 103/ul Critically high 0.3-0.8 [facility] Comment on above: Performed By: #### C BC #### [facility] [address] [place] [address] Dr. Suzi Pal Monocytes/100 WBC (Bld) 10.5 % Normal 1.7-12.0 [facility] Comment on above: Performed By: #### C BC #### [facility] [address] [place] [address] Dr. Suzi Pal NEUT # 4.3 103/ul Normal 1.4-6.5 [facility] Comment on above: Performed By: #### C BC #### [facility] [address] [place] [address] Dr. Suzi Pal Neutrophils/100 WBC (Bld) 41.5 % Critically low 43.0-75.0 [facility] Comment on above: Performed By: #### C BC #### [facility] [address] [place] [address] Dr. Suzi Pal Platelet mean volume (Bld) [Entitic vol] 8.9 fL Critically low 9.5-13.5 [facility] Comment on above: Performed By: #### C BC #### [facility] [address] [place] [address] Dr. Suzi Pal PLT 414 103/ul Normal 150-450 [facility] Comment on above: Performed By: #### C BC #### [facility] [address] [place] [address] Dr. Suzi Pal RBC 4.47 106/ul Normal 4.20-5.40 [facility] Comment on above: Performed By: #### C BC #### [facility] [address] [place] [address] Dr. Suzi Pal WBC 10.4 103/ul Normal 4.0-11.0 [facility] Comment on above: Performed By: #### C BC #### [facility] [address] [place] [address] Dr. Suzi Pal PROF 14(COMP METB)on 022 Albumin [Mass/Vol] 3.8 g/dL Normal 3.4-5.0 [facility] Comment on above: Performed By: #### T 4, CMP, TSH #### [facility] [address] [place] [address] Dr. Suzi Pal Albumin/Globulin [Mass ratio] 0.9 {ratio} Normal [facility] Comment on above: Performed By: #### T 4, CMP, TSH #### [facility] [address] [place] [address] Dr. Suzi Pal ALP [Catalytic activity/Vol] 68 U/L Normal 46-116 [facility] Comment on above: Performed By: #### T 4, CMP, TSH #### [facility] [address] [place] [address] Dr. Suzi Pal ALT [Catalytic activity/Vol] 23 U/L Normal 14-59 [facility] Comment on above: Performed By: #### T 4, CMP, TSH #### [facility] [address] [place] [address] Dr. Suzi Pal Anion gap [Moles/Vol] 11.0 mmol/L Normal [facility] Comment on above: Performed By: #### T 4, CMP, TSH #### [facility] [address] [place] [address] Dr. Suzi Pal AST [Catalytic activity/Vol] 16 U/L Normal 15-37 [facility] Comment on above: Performed By: #### T 4, CMP, TSH #### [facility] [address] [place] [address] Dr. Suzi Pal Bilirubin [Mass/Vol] 0.5 mg/dL Normal 0.2-1.0 [facility] Comment on above: Performed By: #### T 4, CMP, TSH #### [facility] [address] [place] [address] Dr. Suzi Pal Calcium [Mass/Vol] 9.6 mg/dL Normal 8.5-10.1 [facility] Comment on above: Performed By: #### T 4, CMP, TSH #### [facility] [address] [place] [address] Dr. Suzi Pal Chloride [Moles/Vol] 103 mmol/L Normal 98-107 [facility] Comment on above: Performed By: #### T 4, CMP, TSH #### [facility] [address] [place] [address] Dr. Suzi Pal CO2 [Moles/Vol] 31.8 mmol/L Normal 21.0-32.0 [facility] Comment on above: Performed By: #### T 4, CMP, TSH #### [facility] [address] [address] [address] Suzi Pal Creatinine [Mass/Vol] 0.75 mg/dL Normal 0.55-1.02 The [facility] Comment on above: Performed By: #### T 4, CMP, TSH #### [facility] [address] [place] [address] Dr. Suzi Pal EGFR-AF DOMINICAN >60 Normal >=60 [facility] Comment on above: Performed By: #### T 4, CMP, TSH #### [facility] [address] [address] [address] Suzi Pal EGFR-NON AF DOMINICAN >60 Normal >=60 [facility] Comment on above: Performed By: #### T 4, CMP, TSH #### [facility] [address] [place] [address] Dr. Suzi Pal Globulin (S) [Mass/Vol] 4.0 g/dL Normal [facility] Comment on above: Performed By: #### T 4, CMP, TSH #### [facility] [address] [place] [address] Dr. Suzi Pal Glucose [Mass/Vol] 88 mg/dL Normal 74-106 [facility] Comment on above: Performed By: #### T 4, CMP, TSH #### [facility] [address] [place] [address] Dr. Suzi Pal Potassium [Moles/Vol] 3.8 mmol/L Normal 3.5-5.1 [facility] Comment on above: Performed By: #### T 4, CMP, TSH #### [facility] [address] [place] [address] Dr. Suzi Pal Protein [Mass/Vol] 7.8 g/dL Normal 6.4-8.2 [facility] Comment on above: Performed By: #### T 4, CMP, TSH #### [facility] [address] [place] [address] Dr. Suzi Pal Sodium [Moles/Vol] 142 mmol/L Normal 136-145 [facility] Comment on above: Performed By: #### T 4, CMP, TSH #### [facility] [address] [address] [address] Suzi Pal Urea nitrogen [Mass/Vol] 15.0 mg/dL Normal 7.0-18.0 [facility] Comment on above: Performed By: #### T 4, CMP, TSH #### [facility] [address] [address] [address] Suzi Pal Urea nitrogen/Creatinin e [Mass ratio] 20.0 mg/mg Normal [facility] Comment on above: Performed By: #### T 4, CMP, TSH #### [facility] [address] [address] [address] Suzi Pal T4on 06-08-2022 T4 [Mass/Vol] 7.80 ug/dL Normal 4.80-13.90 [facility] Comment on above: Performed By: #### T 4, CMP, TSH #### [facility] [address] [address] [address] Suzi Pal TSHon 06-08-2022 TSH 2.655 uIU/mL Normal 0.358-3.740 [facility] Comment on above: Performed By: #### T 4, CMP, TSH #### [facility] [address] [address] [address] Suzi Pal Complete Blood Count Auto Di ffon 04-06-2021 Basophils (Bld) [#/Vol] 0.2 10*3/uL Normal 0.0-0.2 Comment on above: Result Comment: PERF ORMED BY: [place] [address] PATHOLOGIST PHOTOGRAPHER APPRENTICE LITHOGRAPHIC MORGAN MARTINEZ M.D. Performed By: #### C BC #### [facility] [address] [place] [address] [place] Basophils/100 WBC (Bld) 1.6 % Normal . Comment on above: Performed By: #### C BC #### [facility] [address] Eosinophils (Bld) [#/Vol] 0.2 10*3/uL Normal 0.0-0.45 Comment on above: Performed By: #### C BC #### [place] [address] [place] Eosinophils/100 WBC (Bld) 1.7 % Normal . Comment on above: Performed By: #### C BC #### [address] Erythrocyte distribution width (RBC) [Ratio] 14.0 % Normal 11.9-15.3 Comment on above: Performed By: #### C BC #### [address] Hematocrit (Bld) [Volume fraction] 43.2 % Normal 34.0-46.4 Comment on above: Performed By: #### C BC #### [address] Hemoglobin (Bld) [Mass/Vol] 14.5 g/dL Normal 11.8-15.4 Comment on above: Performed By: #### C BC #### [address] Lymphocytes (Bld) [#/Vol] 4.9 10*3/uL High 1.00-4.8 Comment on above: Performed By: #### C BC #### [address] Lymphocytes/100 WBC (Bld) 46.0 % Normal . Comment on above: Performed By: #### C BC #### [address] MCH (RBC) [Entitic mass] 32.8 pg Normal 24.7-34.3 Comment on above: Performed By: #### C BC #### [address] MCV (RBC) [Entitic vol] 97.9 fL Normal 80-100 Comment on above: Performed By: #### C BC #### [facility] [address] Mean Corpuscular HGB Conc 33.5 g/dL Normal 32.0-35.0 Comment on above: Performed By: #### C BC #### [address] Monocytes (Bld) [#/Vol] 1.2 10*3/uL High 0.0-0.8 Comment on above: Performed By: #### C BC #### [address] Monocytes/100 WBC (Bld) 11.3 % Normal . Comment on above: Performed By: #### C BC #### [address] Neutrophils (Bld) [#/Vol] 4.2 10*3/uL Normal 1.8-7.7 Comment on above: Performed By: #### C BC #### [address] Neutrophils/100 WBC (Bld) 39.4 % Normal . Comment on above: Performed By: #### C BC #### [address] Nucleated RBC/100 WBC (Bld) [Ratio] 0.1 % Normal 0-0.5 Comment on above: Performed By: #### C BC #### [address] Platelet mean volume (Bld) [Entitic vol] 6.9 fL Normal 6.3-10.7 Comment on above: Performed By: #### C BC #### [place] [address] [place] Platelets (Bld) [#/Vol] 445 10*3/uL Normal 150-450 Comment on above: Performed By: #### C BC #### [place] [address] [place] RBC (Bld) [#/Vol] 4.41 10*6/uL Normal 3.60-5.00 [facility] Comment on above: Performed By: #### C BC #### [facility] [id number] [facility] WBC (Bld) [#/Vol] 10.8 10*3/uL Normal 4.5-11.0 [facility] [place] [facility] Comment on above: Performed By: #### C BC #### [facility] [address] [place] [address] [facility] Encounters Encounter Date Encounter Type [...] Payer Category Payer Unknown [id number] 1960 Unknown [id number] 1945 Unknown [id number] 2.16.84 [id number] 1945 Unknown [id number] 1945 Unknown [id number] 2.16.84 [id number] 1945 Unknown [id number] 1945 Unknown [id number] Summary Purpose Family History No Family History Records FoundNo Family History Records FoundNo Family History Records Found Advance Directives No Advanced Directives Records FoundNo Advanced Directives Records FoundNo Advanced Directives Records Found Additional Source Comments INFORMATION SOURCE (unrecogn ized section and content) DATE CREATED AUTHOR 04/15/2021 [facility] DATE CREATED AUTHOR AUTHOR'S ORGANIZ ATION 07/10/2022 [facility] DATE CREATED AUTHOR AUTHOR'S ORGANIZ ATION 10/31/2023 [facility] FOR RECORDS PERTAINING TO PATIENTS WHO [...] BE BASED ON THE PRIMARY CLINICAL RECORDS. [facility] [employer] provides no warranty or guarantee of the accuracy or completeness of information in this document.
--- NOTE | 2023-11-14 13:01 | XR_ITS ---
[address] [address] Patient Name: ZACK DARBY MRN: [id number] date: 1945 Sex: F Assigned Patient Location: [facility] Current Patient Location: [facility] Accession/Order Number: [id number] Exam Date: 11/14/2023 12:55 Report Date: 11/14/2023 14:35 At the request of: SHAIKH SCOTT Procedure: XR chest 2V EXAM: XR chest 2V HISTORY: Acute Upper Respiratory Infection J06.9 COMPARISON: None. TECHNIQUE: PA and lateral views of the chest. FINDINGS: The cardiomediastinal silhouette is normal. No focal consolidation is identified. There is no pneumothorax. No pleural effusion is noted. The osseous structures are intact. XR/XR chest 2V IMPRESSION: No acute cardiopulmonary process. Electronically authenticated by: KRISTEN LLAMAS Date: 11/14/2023 14:35
== END 2023-11-14 11:16 | disposition home or self-care (01) ==
PROVIDERS: PCP Internal Medicine; Visit Provider Internal Medicine
DX: J06.9 Acute upper respiratory infection, unspecified (principal)
CPT/HCPCS: 71046

== ENCOUNTER 2023-12-11 13:18 | Outpatient (OUT) | payer OTHER, SELFPAY ==
[2023-12-11 14:02] LABS: Basophils Absolute Auto 0.1 10^3/uL (0.0-0.1); Basophils Percent Auto 1.3 % (0.2-2.0); Eosinophils Absolute Auto 0.4 10^3/uL (0.0-0.7); Eosinophils Percent Auto 3.9 % (0.9-7.0); Hematocrit 40.4 % (36.0-48.0); Hemoglobin 13.2 g/dL (12.0-16.0); Immature Granulocytes Abs Auto 0.02 10^3/uL (0.00-0.03); Immature Granulocytes Pct Auto 0.2 % (0.0-0.5); Lymphocytes Absolute Auto 4.3 10^3/uL (1.2-3.8); Lymphocytes Percent Auto 44.5 % (20.5-60.0); Mean Corpuscular HGB Conc 32.7 g/dL (29.9-35.2); Mean Corpuscular Volume 98.1 fL (81.0-99.0); Monocytes Absolute Auto 1.3 10^3/uL (0.3-0.8); Monocytes Percent Auto 13.7 % (1.7-12.0); Neutrophils Absolute Auto 3.5 10^3/uL (1.4-6.5); Neutrophils Percent Auto 36.4 % (43.0-75.0); Platelet Count 416 10^3/uL (150-450); Red Blood Count 4.12 10^6/uL (4.20-5.40); Red Cell Distribution Width 15.6 % (11.0-15.0); Reticulocyte Pct Auto 2.03 % (0.60-3.10); White Blood Count 9.7 10^3/uL (4.0-11.0)
[2023-12-11 14:49] LABS: Alanine Aminotransferase 23 U/L (14-59); Albumin Globulin Ratio 0.9; Albumin Level 3.3 g/dL (3.4-5.0); Alkaline Phosphatase 71 U/L (46-116); Anion Gap 11.7; Aspartate Amino Transferase 17 U/L (15-37); BUN Creatinine Ratio 15.5; Bilirubin Total 0.4 mg/dL (0.2-1.0); Calcium 9.6 mg/dL (8.5-10.1); Carbon Dioxide 31.1 mmol/L (21.0-32.0); Chloride 104 mmol/L (98-107); Estimated GFR (African America >60 (>=60); Estimated GFR (Non-African Ame >60 (>=60); Globulin 3.5 g/dL; Glucose 77 mg/dL (74-106); Potassium 3.8 mmol/L (3.5-5.1); Sodium 143 mmol/L (136-145); Total Protein 6.8 g/dL (6.4-8.2)
[2023-12-12 15:08] LABS: Albumin 3.5 g/dL (2.9-4.4); Alpha-1-Globulin 0.2 g/dL (0.0-0.4); Free Kappa Lt Chains,S 29.7 mg/L (3.3-19.4); Free Lambda Lt Chains,S 16.2 mg/L (5.7-26.3); Gamma Globulin 0.6 g/dL (0.4-1.8); Immunoglobulin A, Qn, Serum 151 mg/dL (64-422); Immunoglobulin G, Qn, Serum 762 mg/dL (586-1602); Immunoglobulin M, Qn, Serum 52 mg/dL (26-217); Kappa/Lambda Ratio,S 1.83 (0.26-1.65); Protein, Total 6.3 g/dL (6.0-8.5)
[2023-12-16 00:07] LABS: Immunoglobulin E, Total 34 IU/mL (6-495)
== END 2023-12-11 13:19 | disposition home or self-care (01) ==
LOC: LAB 13:21
PROVIDERS: PCP Internal Medicine; Visit Provider Internal Medicine Hematology & Oncology
DX: D72.829 Elevated white blood cell count, unspecified (principal); D75.839 Thrombocytosis, unspecified; D72.820 Lymphocytosis (symptomatic)
CPT/HCPCS: 36415; 80053; 82784; 82785; 83521; 84155; 84165; 85025; 86334; 99999

== ENCOUNTER 2023-12-19 07:30 | Outpatient (RCR) | payer OTHER, SELFPAY | END 2023-12-19 23:59 | disposition home or self-care (01) | LOC: INF 07:30 | PROVIDERS: PCP Internal Medicine; Visit Provider Internal Medicine Hematology & Oncology | DX: D72.829 Elevated white blood cell count, unspecified (principal); Z85.72 Personal history of non-Hodgkin lymphomas; D75.839 Thrombocytosis, unspecified; D72.820 Lymphocytosis (symptomatic); Z90.81 Acquired absence of spleen; Z90.49 Acquired absence of other specified parts of digestive tract; Z90.710 Acquired absence of both cervix and uterus | CPT/HCPCS: G0463 ==

== ENCOUNTER 2024-02-01 13:10 | Outpatient (OUT) | payer OTHER, SELFPAY ==
--- NOTE | 2024-02-01 | XR_ITS ---
The [address] [address] Patient Name: ZACK DARBY MRN: [id number] date: 1945 Sex: F Assigned Patient Location: Current Patient Location: Accession/Order Number: [id number] Exam Date: 02/01/2024 13:12 Report Date: 02/02/2024 08:43 At the request of: GABY HILARIO Procedure: XR foot RT min 3V PROCEDURE: XR foot RT min 3V COMPARISON: None. HISTORY: RIGHT FOOT PAIN FINDINGS: BONES:Evidence of prior shave osteotomy along the medial head of the first metatarsal. Single fixation wire in the first metatarsal. No acute fracture or dislocation. Mild first metatarsal-phalangeal joint osteoarthropathy. Mild varus of the second third and fourth toes SOFT TISSUES:Negative. No visible soft tissue swelling. EFFUSION:None visible. OTHER: Negative. XR/XR foot RT min 3V IMPRESSION: No acute abnormality Electronically authenticated by: MAMIE FREEMAN Date: 02/02/2024 08:43
== END 2024-02-01 13:11 | disposition home or self-care (01) ==
LOC: EC 13:10
PROVIDERS: PCP Internal Medicine; Visit Provider Physician Assistant
DX: M79.671 Pain in right foot (principal)
CPT/HCPCS: 73630

== ENCOUNTER 2024-02-05 13:20 | Outpatient (OUT) | payer OTHER, SELFPAY ==
[2024-02-05 14:15] LABS: Lactate Dehydrogenase 175 U/L (81-234)
[2024-02-05 15:12] LABS: Basophils Absolute Auto 0.2 10^3/uL (0.0-0.1); Basophils Percent Auto 1.5 % (0.2-2.0); Eosinophils Absolute Auto 0.3 10^3/uL (0.0-0.7); Eosinophils Percent Auto 2.2 % (0.9-7.0); Hematocrit 41.6 % (36.0-48.0); Hemoglobin 13.5 g/dL (12.0-16.0); Immature Granulocytes Abs Auto 0.02 10^3/uL (0.00-0.03); Immature Granulocytes Pct Auto 0.2 % (0.0-0.5); Lymphocytes Percent Auto 44.8 % (20.5-60.0); Mean Corpuscular HGB Conc 32.5 g/dL (29.9-35.2); Mean Corpuscular Hemoglobin 31.8 pg (26.7-34.0); Mean Corpuscular Volume 98.1 fL (81.0-99.0); Mean Platelet Volume 9.6 fL (9.5-13.5); Monocytes Absolute Auto 1.4 10^3/uL (0.3-0.8); Monocytes Percent Auto 12.2 % (1.7-12.0); Neutrophils Absolute Auto 4.4 10^3/uL (1.4-6.5); Neutrophils Percent Auto 39.1 % (43.0-75.0); Platelet Count 476 10^3/uL (150-450); Red Blood Count 4.24 10^6/uL (4.20-5.40); Red Cell Distribution Width 14.8 % (11.0-15.0); White Blood Count 11.3 10^3/uL (4.0-11.0)
== END 2024-02-05 13:21 | disposition home or self-care (01) ==
LOC: LAB 13:32
PROVIDERS: PCP Internal Medicine; Visit Provider Internal Medicine Hematology & Oncology
DX: D72.829 Elevated white blood cell count, unspecified (principal); D72.820 Lymphocytosis (symptomatic)
CPT/HCPCS: 36415; 83615; 85025

== ENCOUNTER 2024-02-13 07:38 | Outpatient (RCR) | payer OTHER, SELFPAY | END 2024-02-18 23:59 | disposition home or self-care (01) | LOC: INF 07:38 | PROVIDERS: PCP Internal Medicine; Visit Provider Internal Medicine Hematology & Oncology | DX: D75.839 Thrombocytosis, unspecified (principal); Z90.81 Acquired absence of spleen; Z85.72 Personal history of non-Hodgkin lymphomas | CPT/HCPCS: G0463 ==

== ENCOUNTER 2024-03-11 10:45 | Outpatient (OUT) | payer OTHER, SELFPAY ==
--- NOTE | 2024-03-11 10:58 | ECG_ITS ---
The [facility] Test Date: 2024-03-11 Pat Name: ZACK DARBY Department: Room: - Gender: Female Plastic Sewer: : 1945 Requested By: BROWN VASQUEZ Order Number: [id number] Reading MD: ZOE LIMA Measurements Intervals [place] Rate: 89 P: 41 AK: 157 QRS: -10 QRSD: 91 T: 38 QT: 350 QTc: 427 Interpretive Statements SINUS RHYTHM VOLTAGE CRITERIA FOR LVH [MEETS CRITERIA IN ONE OF: R(aVL), S(V1), R(V5), R(V5/V6)+S(V1)] Electronically Signed On 03-13-2024 13:14:05 EDT by ZOE LIMA
== END 2024-03-11 10:46 | disposition home or self-care (01) ==
LOC: PST 10:47
PROVIDERS: PCP Internal Medicine; Visit Provider Podiatrist Foot & Ankle Surgery
DX: Z01.810 Encounter for preprocedural cardiovascular examination (principal); M20.41 Other hammer toe(s) (acquired), right foot
CPT/HCPCS: 93005

== ENCOUNTER 2024-03-21 06:11 | Day surgery (SDC) | payer OTHER, SELFPAY ==
[2024-03-11 11:00] VITALS: BP 146/82; PULSE 99; TEMP 36.5; O2SAT 96; BMI 28.1
[2024-03-21] VITALS (10 sets, daily range): BP systolic 138–164; BP diastolic 75–98; PULSE 85–102; TEMP 36.1–36.3; O2SAT 91–97; BMI 28.0
--- OUTSIDE RECORDS SUMMARY | 2024-03-21 06:12 | XMS_ITS | CCD ---
Author Organization [facility] Care Team Providers Care Trimmer Press Clippings Name Role Phone WEST, DR MAMIE Arreola Consulting Unavailable HOUSE, DR ZUNIGA Attending Unavailable HOUSE, DR ZUNIGA Admitting Unavailable HOUSE, DR ZUNIGA Primary Care Unavailable HOUSE, DR ZUNIGA Consulting Unavailable HOUSE, DR ZUNIGA Primary Care Unavailable HOUSE, DR ZUNIGA Consulting Unavailable HOUSE, DR ZUNIGA Attending Unavailable HOUSE, DR ZUNIGA Admitting Unavailable MD Barbie Leroy Attending Provider Barbie Leroy Attending Unavailable Rad, Barbie Admitting Unavailable FAWWAD, CARREON Attending Unavailable FAWWAD, CARREON Attending Unavailable FAWWAD, CARREON Attending Unavailable FAWWAD, CARREON Attending Unavailable FAWWAD, CARREON Attending Unavailable FAWWAD, CARREON Attending Unavailable Allergies Allergy Classification Reported Allergen(s) Allergy Type Date of Onset Reaction(s) Facility (1 source) Latex Drug allergy (disorder) [facility] Repository Problems Problem Classification Problem [...] Name Value Interpretation Reference Range Facil ity Eduard 12-11-2023 L Specimen: Received: 12/12/23 Status: IVY Jones Num: [id number] Spec Type: Impression Subm Dr: Barbie Leroy MD Tissues: PATHPER Procedures: PATHREVIEW Age/ Patient Sex Location Account Attending Physician Genesis Darby 78/F LABELL [id number] Barbie Leroy MD SPEC NUM: [id number] RECD: 12/12/23 STATUS: IVY LARAJason NUM: [id number] JACE: 12/11/[address]: Barbie Leroy MD ENTERED: 12/12/23 [facility] DR: Carmen Sloan SPEC TYPE: Impression DEPT: TEX Baldwin ENTERED BY: [id number] RECV BY: [id number] ORDERED: PATHREVIEW ORDERED: PATHREVIEW Pathologist Review Frequent atypical lymphocytes are noted. Atypical infection should be ruled out. [id number] -------- -------- Specimen: [id number] Received: 12/12/23-1350 Status: IVY Jones Num: [id number] Spec Type: Impression Subm Dr: Barbie Leroy MD Tissues: PATHPER Procedures: PATHREVIEW -------- Patient: Genesis Darby [id number] (Continued) -------- Signed (signature on file) Rudolph Meneses MD 12/13/23 1518 Normal [facility] MG MAMM SCREEN 3D JUAN MANUEL CADon 07-06-2022 MG MAMM SCREEN 3D JUAN MANUEL CAD Patient: GENESIS DARBY Exam Date: 07/06/2022 : 1945 Gender:F Ordering : DR EFRAIN HerreraODaniele Admission #: [id number] Family : Order #: [id number] CLICK HERE TO VIEW EXAM RADIOLOGY REPORT [...] unknown cancer at age 69. LOCATION: [facility] BREAST COMPOSITION: Heterogeneously dense,which may [...] MD on 07/06/2022 at 15:13 Normal [facility] CBC AUTO DIFFon 06-08-2022 BASO # 0.1 103/ul Normal 0.0-0.1 [facility] Comment on above: Performed By: #### C BC #### [facility] [address] [place] [address] Dr. Suzi Pal Basophils/100 WBC (Bld) 1.2 % Normal 0.2-2.0 [facility] Comment on above: Performed By: #### C BC #### [facility] [address] [place] [address] Dr. Suzi Pal EO # 0.3 103/ul Normal 0.0-0.7 [facility] Comment on above: Performed By: #### C BC #### [facility] [address] [place] [address] Dr. Suzi Pal Eosinophils/100 WBC (Bld) 2.5 % Normal 0.9-7.0 [facility] Comment on above: Performed By: #### C BC #### [facility] [address] [place] [address] Dr. Suzi Pal Erythrocyte distribution width (RBC) [Ratio] 14.6 % Normal 11.0-15.0 [facility] Comment on above: Performed By: #### C BC #### [facility] [address] [place] [address] Dr. Suzi Pal Hematocrit (Bld) [Volume fraction] 43.7 % Normal 36.0-48.0 [facility] Comment on above: Performed By: #### C BC #### [facility] [address] [place] [address] Dr. Suzi Pal Hemoglobin (Bld) [Mass/Vol] 14.5 g/dL Normal 12.0-16.0 [facility] Comment on above: Performed By: #### C BC #### [facility] [address] [place] [address] Dr. Suzi Pal IG # 0.03 10e3/ul Normal 0.00-0.03 [facility] Comment on above: Performed By: #### C BC #### [facility] [address] [place] [address] Dr. Suzi Pal IG % 0.3 % Normal 0.0-0.5 [facility] Comment on above: Performed By: #### C BC #### [facility] [address] [place] [address] Dr. Suzi Pal LYMPH # 4.6 103/ul Critically high 1.2-3.8 [facility] Comment on above: Performed By: #### C BC #### [facility] [address] [place] [address] Dr. Suzi Pal Lymphocytes/100 WBC (Bld) 44.0 % Normal 20.5-60.0 [facility] Comment on above: Performed By: #### C BC #### [facility] [address] [place] [address] Dr. Suzi Pal MANUAL DIFF REQ NO Normal [facility] Comment on above: Performed By: #### C BC #### [facility] [address] [place] [address] Dr. Suzi Pal MCH (RBC) [Entitic mass] 32.4 pg Normal 26.7-34.0 [facility] Comment on above: Performed By: #### C BC #### [facility] [address] [address] [address] Suzi Pal MCHC (RBC) [Mass/Vol] 33.2 g/dL Normal 29.9-35.2 [facility] Comment on above: Performed By: #### C BC #### [facility] [address] [address] [address] Suzi Pal MCV (RBC) [Entitic vol] 97.8 fL Normal 81.0-99.0 [facility] Comment on above: Performed By: #### C BC #### [facility] [address] [address] [address] Suzi Pal MONO # 1.1 103/ul Critically high 0.3-0.8 [facility] Comment on above: Performed By: #### C BC #### [facility] [address] [address] [address] Suzi Pal Monocytes/100 WBC (Bld) 10.5 % Normal 1.7-12.0 [facility] Comment on above: Performed By: #### C BC #### [facility] [address] [address] [address] Suzi Pal NEUT # 4.3 103/ul Normal 1.4-6.5 [facility] Comment on above: Performed By: #### C BC #### [facility] [address] [place] [address] Dr. Suzi Pal Neutrophils/100 WBC (Bld) 41.5 % Critically low 43.0-75.0 [facility] Comment on above: Performed By: #### C BC #### [facility] [address] [address] [address] Suzi Pal Platelet mean volume (Bld) [Entitic vol] 8.9 fL Critically low 9.5-13.5 [facility] Comment on above: Performed By: #### C BC #### [facility] [address] [address] [address] Suzi Pal PLT 414 103/ul Normal 150-450 [facility] Comment on above: Performed By: #### C BC #### [facility] [address] [place] [address] Dr. Suzi Pal RBC 4.47 106/ul Normal 4.20-5.40 [facility] Comment on above: Performed By: #### C BC #### [facility] [address] [place] [address] Dr. Suzi Pal WBC 10.4 103/ul Normal 4.0-11.0 [facility] Comment on above: Performed By: #### C BC #### [facility] [address] [place] [address] Dr. Suzi Pal PROF 14(COMP METB)on 022 Albumin [Mass/Vol] 3.8 g/dL Normal 3.4-5.0 [facility] Comment on above: Performed By: #### T 4, CMP, TSH #### [facility] [address] [place] [address] Dr. Suzi Pal Albumin/Globulin [Mass ratio] 0.9 {ratio} Normal [facility] Comment on above: Performed By: #### T 4, CMP, TSH #### [facility] [address] [place] [address] Dr. Suzi Pal ALP [Catalytic activity/Vol] 68 U/L Normal 46-116 [facility] Comment on above: Performed By: #### T 4, CMP, TSH #### [facility] [address] [place] [address] Dr. Suzi Pal ALT [Catalytic activity/Vol] 23 U/L Normal 14-59 [facility] Comment on above: Performed By: #### T 4, CMP, TSH #### [facility] [address] [place] [address] Dr. Suzi Pal Anion gap [Moles/Vol] 11.0 mmol/L Normal [facility] Comment on above: Performed By: #### T 4, CMP, TSH #### [facility] [address] [place] [address] Dr. Suzi Pal AST [Catalytic activity/Vol] 16 U/L Normal 15-37 [facility] Comment on above: Performed By: #### T 4, CMP, TSH #### [facility] [address] [address] [address] Suzi Pal Bilirubin [Mass/Vol] 0.5 mg/dL Normal 0.2-1.0 [facility] Comment on above: Performed By: #### T 4, CMP, TSH #### [facility] [address] [place] [address] Dr. Suzi Pal Calcium [Mass/Vol] 9.6 mg/dL Normal 8.5-10.1 [facility] Comment on above: Performed By: #### T 4, CMP, TSH #### [facility] [address] [place] [address] Dr. Suzi Pal Chloride [Moles/Vol] 103 mmol/L Normal 98-107 [facility] Comment on above: Performed By: #### T 4, CMP, TSH #### [facility] [address] [place] [address] Dr. Suzi Pal CO2 [Moles/Vol] 31.8 mmol/L Normal 21.0-32.0 [facility] Comment on above: Performed By: #### T 4, CMP, TSH #### [facility] [address] [place] [address] Dr. Suzi Pal Creatinine [Mass/Vol] 0.75 mg/dL Normal 0.55-1.02 [facility] Comment on above: Performed By: #### T 4, CMP, TSH #### [facility] [address] [place] [address] Dr. Suzi Pal EGFR-AF AUSTRALIAN >60 Normal >=60 [facility] Comment on above: Performed By: #### T 4, CMP, TSH #### [facility] [address] [place] [address] Dr. Suzi Pal EGFR-NON AF AUSTRALIAN >60 Normal >=60 [facility] Comment on above: Performed By: #### T 4, CMP, TSH #### [facility] [address] [place] [address] Dr. Suzi Pal Globulin (S) [Mass/Vol] 4.0 g/dL Normal [facility] Comment on above: Performed By: #### T 4, CMP, TSH #### [facility] [address] [place] [address] Dr. Suzi Pal Glucose [Mass/Vol] 88 mg/dL Normal 74-106 [facility] Comment on above: Performed By: #### T 4, CMP, TSH #### [facility] [address] [place] [address] Dr. Suzi Pal Potassium [Moles/Vol] 3.8 mmol/L Normal 3.5-5.1 [facility] Comment on above: Performed By: #### T 4, CMP, TSH #### [facility] [address] [place] [address] Dr. Suzi Pal Protein [Mass/Vol] 7.8 g/dL Normal 6.4-8.2 [facility] Comment on above: Performed By: #### T 4, CMP, TSH #### [facility] [address] [place] [address] Dr. Suzi Pal Sodium [Moles/Vol] 142 mmol/L Normal 136-145 [facility] Comment on above: Performed By: #### T 4, CMP, TSH #### [facility] [address] [place] [address] Dr. Suzi Pal Urea nitrogen [Mass/Vol] 15.0 mg/dL Normal 7.0-18.0 [facility] Comment on above: Performed By: #### T 4, CMP, TSH #### [facility] [address] [place] [address] Dr. Suzi Pal Urea nitrogen/Creatinin e [Mass ratio] 20.0 mg/mg Normal [facility] Comment on above: Performed By: #### T 4, CMP, TSH #### [facility] [address] [place] [address] Dr. Suzi Pal T4on 06-08-2022 T4 [Mass/Vol] 7.80 ug/dL Normal 4.80-13.90 [facility] Comment on above: Performed By: #### T 4, CMP, TSH #### [facility] [address] [place] [address] Dr. Suzi Pal TSHon 06-08-2022 TSH 2.655 uIU/mL Normal 0.358-3.740 [facility] Comment on above: Performed By: #### T 4, CMP, TSH #### [facility] [address] [address] [address] Suzi Pal Encounters Encounter Date Encounter Type Care Provider Facility Start: 02-26-2024 End: 02-26-2024 ambulatory CARREON FAWWAD Not Available Start: 01-17-2024 End: 01-17-2024 ambulatory CARREON FAWWAD Not Available Start: 12-11-2023 End: 12-11-2023 ambulatory Barbie Leroy Facility:[facility] Start: 12-11-2023 End: 12-11-2023 ambulatory MD Barbie Leroy Work Phone: [facility] Work Phone: Start: 12-11-2023 End: 12-11-2023 Departed Referred MD Barbie Leroy Work Phone: [facility] Start: 11-13-2023 End: 11-13-2023 ambulatory CARREON FAWWAD Not Available Start: 10-30-2023 End: 10-30-2023 ambulatory CARREON FAWWAD Not Available Start: 08-22-2023 End: 08-22-2023 ambulatory CARREON FAWWAD Not Available Start: 08-02-2023 End: 08-02-2023 ambulatory CARREON FAWWAD Not Available Start: 07-06-2022 End: 07-07-[address] MAMIE FREEMAN Facility:[facility] Start: 06-08-2022 End: 06-09-[address] EFRAIN HOGAN Facility:[facility] Payers Date Payer Category Payer Self-pay [id number] 2023 Unknown [id number] 1960 Unknown [id number] 1945 Unknown [id number] 2.16.84 [id number] 1945 Unknown [id number] 2.16.84 [id number] 1945 Unknown [id number] 1945 Unknown [id number] 1945 Unknown [id number] [id number] 1945 Unknown [id number] [id number] 1945 Unknown [id number] 2.16.840 .[id number] 1945 Unknown [id number] 2.16.840 .[id number] Medicare [employer] MCR PFFS OP [id number] Unknown [id number] Social History Date Type Detail Facility Tobacco smoking stat [facility] Unknown if ever smoked [facility] Work Phone: Start: 1945 Sex Assigned At Female F [facility] Evaluation note Note Date & Type Note Facility Evaluation note No assessment information availa ble [facility] Work Phone: Summary Purpose Family History No Family History Records FoundNo Family History Records FoundNo Family History Records Found Advance Directives No Advanced Directives Records Found Advance Directive Response Recorded Date/ Time Advance Directives No April 06, 2021 2:10pm Additional Source Comments INFORMATION SOURCE (unrecogn ized section and content) DATE CREATED AUTHOR 07/10/2022 [facility] DATE CREATED AUTHOR AUTHOR'S ORGANIZ ATION 12/13/2023 [facility] DATE CREATED AUTHOR AUTHOR'S ORGANIZ ATION 02/26/2024 [facility] [employer] Care Teams (unrecognized sec tion and content) Team Status: Inactive Member Role Status Dates Barbie Leroy MD Attending Provider Active St art: December 11, 2023 End: December 11, 2023 Goals (unrecognized section and content) Goals may be documented in a n alternate section FOR RECORDS PERTAINING TO PATIENTS WHO ARE [...] BE BASED ON THE PRIMARY CLINICAL RECORDS. [employer] provides no warranty or guarantee of the accuracy or completeness of information in this document.
[2024-03-21] MEDS: LACTATED RINGER'S SOLUTION 1,000 ML 50 ML IV (06:44)
[2024-03-21 07:17] LABS: Glucometer 93 mg/dL (74-106)
[2024-03-21] MEDS: CEFAZOLIN SODIUM/DEXTROSE,ISO 2 GM/50 ML PIGGYBACK IV (07:32)
[2024-03-21] MEDS: LIDOCAINE HCL 1% 100 MG/10 ML MDV INJ (08:02)
[2024-03-21] MEDS: BUPIVACAINE HCL 0.5% PF 50 MG/10 ML VIAL INJ (08:02)
--- NOTE | 2024-03-21 08:30 | XR_ITS ---
The [address] [address] Patient Name: ZACK DARBY MRN: [id number] date: 1945 Sex: F Assigned Patient Location: [facility] Current Patient Location: Accession/Order Number: [id number] Exam Date: 03/21/2024 08:50 Report Date: 03/22/2024 04:18 At the request of: BROWN VASQUEZ Procedure: XR foot RT min 3V PROCEDURE: XR foot RT min 3V HISTORY: 2nd hammertoe s/p amputation COMPARISON: XR foot right 02/01/2024 FINDINGS: BONES:Amputation of second toe at level of mid proximal phalanx. Remnant wire within first metatarsal from prior pinning. No fracture, dislocation, bone lesion. Moderate degenerative changes of the first metatarsophalangeal joint. SOFT TISSUES:Distal dorsal soft tissue swelling. EFFUSION:None visible. OTHER: Negative. XR/XR foot RT min 3V IMPRESSION: 1. Interval amputation of second toe. 2. No acute findings or evidence of osteomyelitis. Electronically authenticated by: KAVON VARGAS Date: 03/22/2024 04:18
[2024-03-21 08:37] LABS: Glucometer 98 mg/dL (74-106)
--- NOTE | 2024-03-21 10:03 | P.ORON_ITS ---
Brief Operative Note Date of procedure: 03/21/24 Pre-op diagnosis general: Right second hammertoe Post-op diagnosis: same as pre-op Procedure: Procedure performed: Partial right second toe amputation Indications for procedure: Patient is an 79-year-old female who had previous second hammertoe correction years ago at an outside facility. Unfortunately over the last year she has had residual dorsal contracture which cause rubbing and irritation in shoe as well as under lapping of the great toe which is associated with hallux valgus. She presented to my office and we discussed both surgical and nonsurgical treatment options. She had attempted shoe modificat ion, activity modification, toe spacers and sleeves without much help therefore wished to undergo surgical correction. I discussed the potential risks and benefits of reconstruction which would require bunionectomy and revision of her second toe fusion which is associated with a longer follow-up. Alternatively partial second toe amputation would allow her to weight-bear immediately after surgery would be a much easier surgery for recovery. She elected to undergo the second toe amputation. She was made aware that this could worsen her bunion deformity and lead to other issues but ultimately wished to undergo the above procedure. Intraoperative findings: Mild to moderate hallux valgus deformity with overlapping of the second toe on top of the great toe. There is a sagittal plane deformity of the great toe at the fusion site noting malunion causing 10 to 15 degrees of dorsal angulation. There is fusion of the PIPJ and bone quality was within normal limits with no evidence of infection. Procedure in detail: Patient was identified preoperatively by myself which time correct side and site were marked and consent was obtained. Preoperative antibiotics were started and patient was brought back to the operating theater placed on table in supine position with an ankle tourniquet. IV sedation was administered. The right lower extremity was prepped and draped in usual sterile fashion and formal timeout was performed. Then a second ray block was performed with local anesthesia which consisted of 10 cc of 1% lidocaine plain and 0.5% Marcaine plain. The right foot was then exsanguinated and the tourniquet was inflated. A fishmouth incision was placed on the second toe at the level of the distal proximal phalanx. Full-thickness incision was taken down to bone to the level of the proximal phalanx head and all soft tissue attachments were released. Then a sagittal saw was used to cut the proximal phalanx from dorsal to plantar direction. The amputated digit was passed back table and sent for specimen. Tendinous structures were cut proximally. Surgical site was irrigated with normal saline. All tissues including bone appeared healthy and the incision was closed in layers. Tourniquet was deflated with a prompt hyperemic response. A dry sterile dressing and a surgical shoe was then applied. Postoperative plan: Discharged home under family's care Weightbearing as tolerated in surgical shoe or cam boot She may shower tomorrow at which time she should remove the surgical bandage and wash the surgical foot with soap and water. After patting dry a surgical dress ing consisting of 4 x 4's and Ben wrap should be reapplied. Ice and elevation Prescriptions were electronically sent to the pharmacy She is to call the office to schedule an appointment for first postoperative visit for next week Anesthesia: MAC and local Surgeon: Jose Monge Tourniquet time (min): 10 Pathology: other (2nd toe) Condition: stable Disposition: PACU
== END 2024-03-21 09:50 | disposition home or self-care (01) ==
PROVIDERS: PCP Internal Medicine; Visit Provider Podiatrist Foot & Ankle Surgery
PROC: (CPT 28825; principal; 2024-03-21 07:30)
DX: M20.41 Other hammer toe(s) (acquired), right foot (principal); M79.671 Pain in right foot; Z79.899 Other long term (current) drug therapy
CPT/HCPCS: 28825; 36415; 73630; 82948; 88304; 88311; J0665; J0690; J1100; J1885; J2405; J2704; J3010

== ENCOUNTER 2024-07-09 12:44 | Outpatient (OUT) | payer OTHER, SELFPAY ==
--- NOTE | 2024-07-09 12:55 | MM_ITS ---
Patient Name: ZACK DARBY MR#: [id number] : 1945 Exam Date: 07/09/2024 Ordering Doctor: CAYLA JONES RADIOLOGY REPORT PROCEDURE: MM TOMOSYNTHESIS SCREENING BI COMPARISON: MG MAMM SCREEN 3D JUAN MANUEL CAD, 07/06/2022. MM TOMOSYNTHESIS SCREENING BI, 07/07/2023. INDICATIONS: Screening Calculator Name NCI Breast Cancer Risk Assessment Tool 5 Year Breast Cancer Risk 7.80% Lifetime Breast Cancer Risk 11.70% Personal Breast Cancer No Personal Ovarian Cancer No Treatments Spleenectomy, Chemo, Radiation Family Cancers Sister with breast cancer at age 45; Sister with breast cancer at age 77; Mother with multiple myeloma cancer at age ~72; Father with rectal cancer at age 62; Brother with prostate cancer at age 75; Brother with unknown cancer at age ~70. LOCATION: [facility] BREAST COMPOSITION: The breasts are heterogeneously dense,which may obscure small masses. FINDINGS: DIAGNOSTIC CATEGORY 2--BENIGN FINDING. NO CHANGE FROM COMPARISON. Scattered benign-appearing calcifications are present. Scattered benign-appearing lymph nodes are present. RIGHT BREAST: No significant suspicious finding. LEFT BREAST: No significant suspicious finding. RECOMMENDATIONS: ROUTINE MAMMOGRAM AND CLINICAL EVALUATION IN 12 MONTHS. PLEASE NOTE: A NORMAL MAMMOGRAM DOES NOT EXCLUDE THE POSSIBILITY OF BREAST CANCER. A CLINICALLY SUSPICIOUS PALPABLE LUMP SHOULD BE BIOPSIED. Dictated by: Cristhian Jimenez MD on 07/10/2024 at 08:21 Approved by: Cristhian Jimenez MD on 07/10/2024 at 08:23
--- OUTSIDE RECORDS SUMMARY | 2024-07-09 13:05 | XMS_ITS | CCD ---
Author Organization [facility] Care Team Providers Care Gravel Hauler Name Role Phone WEST, DR MAMIE Arreola Consulting Unavailable HOUSE, DR ZUNIGA Attending Unavailable HOUSE, DR ZUNIGA Admitting Unavailable HOUSE, DR ZUNIAG Primary Care Unavailable HOUSE, DR ZUNIGA Consulting Unavailable HOUSE, DR ZUNIGA Primary Care Unavailable HOUSE, DR ZUNIGA Consulting Unavailable HOUSE, DR ZUNIGA Attending Unavailable HOUSE, DR ZUNIGA Admitting Unavailable MD Guillermo Leroy Attending Provider [phone] SHAIKH SALES Attending Unavailable MÓNICA, Attending Unavailable MÓNICA, Attending Unavailable MÓNICA, Attending Unavailable MÓNICA, Attending Unavailable MÓNICA, Attending Unavailable JAMEL Monge Attending Provider [phone] Guillermo Leroy Admitting Unavailable Guillermo Leroy Attending Unavailable Jose Monge Attending Unavailable Jose Monge Admitting Unavailable Bonita Pugh APRN Primary Care Provider GUILLERMO LEROY Referring Unavailable BONITA PUGH Primary Care Un available AMINTA RANDALL Attending Unavailable BONITA PUGH Primary Care Un available Mónica BEAVERS, Unavailable Son Loza MD Primary Care Provider Bonita Pugh NP Unavailable Allergies Allergy Classification Reported Allergen(s) Allergy Type Date of Onset Reaction(s) Facility (1 source) Latex Drug allergy (disorder) [facility] Repository Medications Current Medications Medication Drug Class(es) Dates Sig (Normalized) Sig (Original) [id number] 200 actuat albuterol 0.09 mg/actuat metered dose inhaler (1 source) beta2-Adrenergic Agonist Start: 11-13-2023 take 2 puff(s) by inhalation every four hours for wheezing albuterol HFA 90 mcg/act inhaler Indications: URTI (acute upper respiratory infection) Inhale 2 puffs every 4 (four) hours if needed for wheezing 8.5 g 11/13/2023 Active antiox #8/om3/dha/epa/lut/ze ax (PRESERVISION AREDS 2, OMEGA-3, ORAL) (1 source) antiox #8/om3/dha/epa/lut /zeax (PRESERVISION AREDS 2, OMEGA-3, ORAL) Take by mouth once daily. Active Ascorbic Acid (1 source) Vitamin C Ascorbic Acid (VITAMIN C ER PO) Take by mouth Active aspirin 81 mg delayed release oral tablet (2 sources) Platelet Aggregation Inhibitor, Nonsteroidal Anti-inflammatory Drug take 1 tablet by mouth in the morning aspirin 81 MG EC tablet Take 81 mg by mouth in the morning. Active cholecalciferol 0.05 mg oral capsule (1 source) Vitamin D take 1 capsule by mouth once daily Cholecalciferol, Vitamin D3, 50 mcg (2,000 unit) cap Take 2,000 Units by mouth once daily. Active Docusate (1 source) Docusate Calcium (STOOL SOFTENER PO) Take by mouth Active FIBER, HERBAL, ORAL (1 source) FIBER, HERBAL, ORAL Take by mouth once daily. Active Inulin (1 source) Inulin (FIBER CHOICE PO) Take by mouth Active loratadine 10 mg oral tablet (1 source) Start: 11-13-2023 take 1 tablet by mouth once daily loratadine (Claritin) 10 MG tablet Indications: URTI (acute upper respiratory infection) Take 1 tablet (10 mg) by mouth Daily 30 tablet 2 11/13/2023 Active Multiple Vitamin (multivitamin) tablet (1 source) take 1 tablet by mouth in the morning Multiple Vitamin (multivitamin) tablet Take 1 tablet by mouth in the morning. Active multivit-min/ferrous fumarate (MULTI VITAMIN ORAL) (1 source) multivit-min/jey ro us fumarate (MULTI VITAMIN ORAL) Take by mouth once daily. Active omeprazole 20 mg delayed release oral tablet (2 sources) Proton Pump Inhibitor take 1 tablet by mouth before mealtime omeprazole OTC (PriLOSEC OTC) 20 MG EC tablet Take 20 mg by mouth in the morning. Take before meals. Do not crush, chew, or split.. Active oxymetazoline hydrochloride 0.5 mg/ml nasal spray (1 source) Start: 11-13-2023 oxymetazoline (Afrin Nasal [place]) 0.05 % nasal spray Indications: URTI (acute upper respiratory infection) Administer 2 sprays into each nostril every 12 (twelve) hours if needed for congestion for up to 2 days Do not use for more than 3 days. 30 mL 11/13/2023 Active Zinc Sulfate (1 source) Zinc Sulfate (ZI NC 15 PO) Take by mouth Active Completed/Discontinued Medications Medication Drug Class(es) Dates Sig (Normalized) Sig (Original) simvastatin 40 mg oral tablet (1 source) HMG-CoA Reductase Inhibitor Start: 08-21-2012 End: 05-02-2024 take 1 tablet by mouth once daily at bedtime SIMVASTATIN 40 mg tablet Take 40 mg by mouth daily at bedtime. 08/21/2012 05/02/2024 Discontinued (Discontinued by Patient) Problems Active Problems Problem Classification Problem Date Documented Date Episodic/Chronic Diseases of white blood cells (2 sources) Leukocytosis; Translations: [Elevated white blood cell count, unspecified] Onset: 05-02-2024 05-02-2024 Chronic Esophageal disorders (1 source) Gastroesophageal reflux disease without esophagitis; Translations: [Gastro-esophageal reflux disease without esophagitis] Onset: 08-22-2023 08-22-2023 Chronic Malaise and fatigue (1 source) Other fatigue; Translations: [OTHER FATIGUE] Onset: 06-12-2022 Episodic Neoplasms of unspecified nature or uncertain behavior (1 source) Post-splenectomy thrombocytosis; 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] 05-02-2024 Episodic Non-Hodgkin`s lymphoma (7 sources) Unspecified B-cell lymphoma, unspecified site; Translations: [Diffuse non-Hodgkin's lymphoma, large cell (clinical)] Onset: 07-02-2012 Chronic Non-Hodgkin`s lymphoma (2 sources) History of malignant lymphoma; Translations: [Personal history of non-Hodgkin lymphomas] Onset: 05-02-2024 05-02-2024 Episodic Other screening for suspected conditions (not mental disorders or infectious disease) (5 sources) Encounter for screening mammogram for malignant neoplasm of breast; Translations: [Patient encounter status] Onset: 07-06-2022 Episodic Residual codes; unclassified (1 [...] HX MALIGNANT NEOPLASM UNS] Onset: 07-09-2022 Episodic Residual codes; unclassified (1 source) Acquired absence of spleen; 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] Onset: 05-02-2024 Episodic Unclassified (1 source) Postsplenectomy thrombocytosis; 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] Onset: 05-02-2024 Past or Other Problems Problem Classification Problem Date Documented Da te Episodic/Chronic Mood disorders (1 source) Mood disorders Onset: 02-26-2024 02-26-2024 Other connective tissue disease (1 source) Pain of toe of right foot; Translations: [Pain in right toe(s)] Onset: 01-17-2024 01-17-2024 Episodic Other upper respiratory infections (2 sources) Pharyngitis; Translations: [Acute pharyngitis, unspecified] Onset: 10-30-2023 10-30-2023 Episodic Otitis media and related conditions (1 source) Acute suppurative otitis media without spontaneous rupture of ear drum; Translations: [Acute suppurative otitis media without spontaneous rupture of ear drum, bilateral] Onset: 10-30-2023 10-30-2023 Episodic Sprains and strains (1 source) Sprain of left ankle; Translations: [Sprain of unspecified ligament of left ankle, initial encounter] Onset: 01-17-2024 01-17-2024 Episodic Results Test Name Value Interpretation Reference Range Facility CBC W Auto Differential pane l (Bld)on 05-02-2024 Basophils (Bld) [#/Vol] 0.14 10*3/uL High [facility] Basophils/100 WBC (Bld) 1.3 % [facility] Differential cell count method Nom (Bld) Auto [facility] Eosinophils (Bld) [#/Vol] 0.22 10*3/uL [facility] Eosinophils/100 WBC (Bld) 2.1 % [facility] Erythrocyte distribution width (RBC) [Ratio] 15.0 % 11.5 - 15.0 % [facility] Hematocrit (Bld) [Volume fraction] 43.3 % 36.0 - 46.0 % [facility] Hemoglobin (Bld) [Mass/Vol] 14.8 g/dL 11.5 - 15.5 g/dL [facility] Immature granulocytes (Bld) [#/Vol] 0.04 10*3/uL [facility] Immature granulocytes/100 WBC (Bld) 0.4 % [facility] Interpretation and review of laboratory results Abnormal [facility] Lymphocytes (Bld) [#/Vol] 3.96 10*3/uL [facility] Lymphocytes/100 WBC (Bld) 37.6 % [facility] MCH (RBC) [Entitic mass] 32.4 pg 26.0 - 34.0 pg [facility] MCHC (RBC) [Mass/Vol] 34.2 g/dL 30.5 - 36.0 g/dL [facility] MCV (RBC) [Entitic vol] 94.7 fL 80.0 - 100.0 fL [facility] Monocytes (Bld) [#/Vol] 1.28 10*3/uL High [facility] Monocytes/100 WBC (Bld) 12.2 % [facility] Neutrophils (Bld) [#/Vol] 4.88 10*3/uL [facility] Neutrophils/100 WBC (Bld) 46.4 % [facility] Nucleated RBC (Bld) [#/Vol] [facility] Nucleated RBC/100 WBC (Bld) [Ratio] 0.0 % /100 WBC [facility] Platelet mean volume (Bld) [Entitic vol] 9.0 fL 9.0 - 12.7 fL [facility] Platelets (Bld) [#/Vol] 353 10*3/uL [facility] RBC (Bld) [#/Vol] 4.57 10*6/uL 3.90 - 5.2 0 m/uL [facility] WBC (Bld) [#/Vol] 10.52 10*3/uL [facility] Basophils (Bld) [#/Vol] 0.14 10*3/uL High <0.11 [facility] Comment on above: Order Comment: Speci men Type: BLOOD SPECIMEN Ordering Facility: [facility] Address: [address] [place] [address] Performed By: #### 5 7021-8, 19252-8 #### [facility] CLIA [id number] [address] [place] [address]23 Basophils/100 WBC (Bld) 1.3 % Normal [facility] Comment on above: Order Comment: Speci men Type: BLOOD SPECIMEN Ordering Facility: [facility] Address: [address] [place] [address] Performed By: #### 5 7021-8, 82643-4 #### [facility] CLIA [id number] [address] [place] [address]103 Differential cell count method Nom (Bld) Auto Normal [facility] Comment on above: Order Comment: Speci men Type: BLOOD SPECIMEN Ordering Facility: [facility] Address: [address] [place] [address] Performed By: #### 5 7021-8, 41807-9 #### [facility] CLIA [id number] [address] [place] [address]35 Eosinophils (Bld) [#/Vol] 0.22 10*3/uL Normal <0.46 [facility] Comment on above: Order Comment: Speci men Type: BLOOD SPECIMEN Ordering Facility: [facility] Address: [address] [place] [address] Performed By: #### 5 7021-8, 47622-5 #### [facility] CLIA [id number] [address] [place] [address] 24329 Eosinophils/100 WBC (Bld) 2.1 % Normal [facility] Comment on above: Order Comment: Speci men Type: BLOOD SPECIMEN Ordering Facility: [facility] Address: [address] [place], [place] [address] Performed By: #### 5 7021-8, 96478-5 #### [facility] CLIA [id number] [address] [place] [address] 47795 Erythrocyte distribution width (RBC) [Ratio] 15.0 % Normal 11.5-15.0 [facility] Comment on above: Order Comment: Speci men Type: BLOOD SPECIMEN Ordering Facility: [facility] Address: [address] [place] [address] Performed By: #### 5 7021-8, 11066-8 #### [facility] CLIA [id number] [address] [place] [address] 31809 Hematocrit (Bld) [Volume fraction] 43.3 % Normal 36.0-46.0 [facility] Comment on above: Order Comment: Speci men Type: BLOOD SPECIMEN Ordering Facility: [facility] Address: [address] [place] [address] Performed By: #### 5 7021-8, 06204-1 #### [facility] CLIA [id number] [address] [place] [address] 65144 Hemoglobin (Bld) [Mass/Vol] 14.8 g/dL Normal 11.5-15.5 [facility] Comment on above: Order Comment: Speci men Type: BLOOD SPECIMEN Ordering Facility: [facility] Address: [address] [place] [address] Performed By: #### 5 7021-8, 20470-0 #### [facility] CLIA [id number] [address] [place] [address]2020 Immature granulocytes (Bld) [#/Vol] 0.04 10*3/uL Normal <0.10 [facility] Comment on above: Order Comment: Speci men Type: BLOOD SPECIMEN Ordering Facility: [facility] Address: [address] [place] [address] Performed By: #### 5 7021-8, 69256-3 #### [facility] CLIA [id number] [address] [place] [address] 22665 Immature granulocytes/100 WBC (Bld) 0.4 % Normal [facility] Comment on above: Order Comment: Speci men Type: BLOOD SPECIMEN Ordering Facility: [facility] Address: [address] [place] [address] Performed By: #### 5 7021-8, 50566-3 #### [facility] CLIA [id number] [address] [place] [address] 41480 Lymphocytes (Bld) [#/Vol] 3.96 10*3/uL Normal 1.00-4.00 [facility] Comment on above: Order Comment: Speci men Type: BLOOD SPECIMEN Ordering Facility: [facility] Address: [address] [place] [address] Performed By: #### 5 7021-8, 26546-2 #### [facility] CLIA [id number] [address] [place] [address]7746 Lymphocytes/100 WBC (Bld) 37.6 % Normal [facility] Comment on above: Order Comment: Speci men Type: BLOOD SPECIMEN Ordering Facility: [facility] Address: [address] [place] [address] Performed By: #### 5 7021-8, 08693-4 #### [facility] CLIA [id number] [address] [place] [address] 86952 MCH (RBC) [Entitic mass] 32.4 pg Normal 26.0-34.0 [facility] Comment on above: Order Comment: Speci men Type: BLOOD SPECIMEN Ordering Facility: [facility] Address: [address] [place], [place] [address] Performed By: #### 5 7021-8, 12656-8 #### [facility] CLIA [id number] [address] [place] [address] 93512 MCHC (RBC) [Mass/Vol] 34.2 g/dL Normal 30.5-36.0 [facility] Comment on above: Order Comment: Speci men Type: BLOOD SPECIMEN Ordering Facility: [facility] Address: [address] [place] [address] Performed By: #### 5 7021-8, 98761-1 #### [facility] CLIA [id number] [address] [place] [address] 87927 MCV (RBC) [Entitic vol] 94.7 fL Normal 80.0-100.0 [facility] Comment on above: Order Comment: Speci men Type: BLOOD SPECIMEN Ordering Facility: [facility] Address: [address] [place] [address] Performed By: #### 5 7021-8, 99072-5 #### [facility] CLIA [id number] [address] [place] [address]228 Monocytes (Bld) [#/Vol] 1.28 10*3/uL High <0.87 [facility] Comment on above: Order Comment: Speci men Type: BLOOD SPECIMEN Ordering Facility: [facility] Address: [address] [place] [address] Performed By: #### 5 7021-8, 52744-2 #### [facility] CLIA [id number] [address] [place] [address] 32776 Monocytes/100 WBC (Bld) 12.2 % Normal [facility] Comment on above: Order Comment: Speci men Type: BLOOD SPECIMEN Ordering Facility: [facility] Address: [address] [place] [address] Performed By: #### 5 7021-8, 77193-3 #### [facility] CLIA [id number] [address] [place] [address] 71627 Neutrophils (Bld) [#/Vol] 4.88 10*3/uL Normal 1.45-7.50 [facility] Comment on above: Order Comment: Speci men Type: BLOOD SPECIMEN Ordering Facility: [facility] Address: [address] [place] [address] Performed By: #### 5 7021-8, 67143-6 #### [facility] CLIA [id number] [address] [place] [address] 75249 Neutrophils/100 WBC (Bld) 46.4 % Normal [facility] Comment on above: Order Comment: Speci men Type: BLOOD SPECIMEN Ordering Facility: [facility] Address: [address] [place] [address] Performed By: #### 5 7021-8, 25726-2 #### [facility] CLIA [id number] [address] [place] [address] 57332 Nucleated RBC (Bld) [#/Vol] 10*3/uL Normal <0.01 [facility] Comment on above: Order Comment: Speci men Type: BLOOD SPECIMEN Ordering Facility: [facility] Address: [address] [place] [address] Performed By: #### 5 7021-8, 34245-1 #### [facility] CLIA [id number] [address] [place] [address] 13981 Nucleated RBC/100 WBC (Bld) [Ratio] 0.0 /100 WBC Normal [facility] Comment on above: Order Comment: Speci men Type: BLOOD SPECIMEN Ordering Facility: [facility] Address: [address] [place] [address] Performed By: #### 5 7021-8, 37147-3 #### [facility] CLIA [id number] [address] [place] [address] 66383 Platelet mean volume (Bld) [Entitic vol] 9.0 fL Normal 9.0-12.7 [facility] Comment on above: Order Comment: Speci men Type: BLOOD SPECIMEN Ordering Facility: [facility] Address: [address] [place] [address] Performed By: #### 5 7021-8, 82220-9 #### [facility] CLIA [id number] [address] [place] [address] Platelets (Bld) [#/Vol] 353 10*3/uL Normal 150-400 [facility] Comment on above: Order Comment: Speci men Type: BLOOD SPECIMEN Ordering Facility: [facility] Address: [address] [place] [address] Performed By: #### 5 7021-8, 28134-4 #### [facility] CLIA [id number] [address] [place] [address] 45809 RBC (Bld) [#/Vol] 4.57 10*6/uL Normal 3.90-5.20 [facility] Comment on above: Order Comment: Speci men Type: BLOOD SPECIMEN Ordering Facility: [facility] Address: [address] [place] [address] Performed By: #### 5 7021-8, 02901-9 #### [facility] CLIA [id number] [address] [place] [address] 76357 WBC (Bld) [#/Vol] 10.52 10*3/uL Normal 3.70-11.00 [facility] Comment on above: Order Comment: Speci men Type: BLOOD SPECIMEN Ordering Facility: [facility] Address: [address] [place] [address] Performed By: #### 5 7021-8, 73428-6 #### [facility] CLIA [id number] [address] [place] [address] 39692 CNOVSPon 05-02-2024 [facility] Visit (SP) Office ([facility]) GENESIS DARBY ([id number]) 1945 F Date Time Provider Department 05/02/24 11:15 AM AMINTA RANDALL During your visit today, we recorded the following information about you: Temperature Pulse Respiration Blood pressure 97.7 degrees 106/minute 16/minute 134/80 Weight Height 72.5 kg 1.6 m Aminta Randall MD 05/02/2024 8:14 PM Signed PATIENT NAME: Genesis Darby DATE: 05/02/2024 PRIMARY CARE PHYSICIAN: Bonita Pugh APRN OTHER PHYSICIANS: Dr. Guillermo Leroy ([facility]) HPI: This is an 79 year old female with a past history of lymphoma status post splenectomy, referred for evaluation of persistent leukocytosis and thrombocytosis. 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 She underwent splenectomy on 09/17/2009. Subsequently she received chemotherapy with R-CHOP x 4 cycles followed by involved field radiation with complete response. She has had no evidence of recurrent lymphoma. Recent lab per his PCP revealed mild leukocytosis and thrombocytosis. She was seen by hematology February 2023 and extensive evaluation revealed no evidence of hematologic malignancy, and it was felt her abnormal CBC is secondary to her previous splenectomy. On review of records she has had intermittent mild leukocytosis and thrombocytosis ever since her splenectomy in August 2009. On evaluation today the patient feels well. No recent fevers or signs of infection. No evidence of bleeding or bruising. No unusual pain. She does not smoke or drink. Current medications listed. She has not been on recent steroids. MEDICATIONS: Current Outpatient Medications Medication Sig SIMVASTATIN 40 mg tablet Take 40 mg by mouth daily at bedtime. No current facility-administered medications for this visit. ALLERGIES: ALLERGIES No Known Allergies PAST MEDICAL HISTORY: No past medical history on file. PAST SURGICAL HISTORY: No past surgical history on file. FAMILY HISTORY: No family history on file. SOCIAL HISTORY: Social History Tobacco Use Smoking status: Never Smokeless tobacco: Never Substance Use Topics Alcohol use: No Drug use: No COMPLETE REVIEW OF SYSTEMS: CONSTITUTION: Negative for pain, fatigue, weight loss, or appetite loss. EENT: Negative for mouth soreness, antibiotics use, epistaxis, visual problems, neck or facial swelling, fever/chills, bleeding gums, or hearing loss. CV: Negative for edema, calf swelling, palpitations, or chest pain. RESPIRATORY: Negative for cough, SOB, hemoptysis, or wheezing. GI: Negative for nausea/vomiting, heartburn, vomiting blood, dysphasia, diarrhea, blood in stool, constipation, early satiety, PICA, vegetarian, poor nutrition, abdominal fullness, or abdominal pain. NEUROLOGICAL: Negative for numbness/tingling, dizziness, gait disturbance, headache, speech disturbance, tremor, hemiparesis/sensory loss, or change in mental status. MUSCULOSKELETAL: Negative for joint pain, joint swelling, or proximal muscle weakness. SKIN: Negative for hair loss, bruising, nail changes, rash, itching, pallor, or jaundice. ENDO/URO: Negative for hot flashes, cold or heat intolerance, urinary frequency, urinary hesitancy, menorrhagia, or hematuria. PSYCH: Negative for anxiety, depression, or other. PHYSICAL EXAM: BP 134/80 Pulse 106 Temp 36.5 ?C (97.7 ?F) (Temporal) Resp 16 Ht 160 cm (5' 3 ) Wt 72.5 kg (159 lb 13.3 oz) SpO2 94% BMI 28.31 kg/m? GENERAL EXAM: Well developed/well nourished; in no acute distress. SKIN: Negative for lesions, rashes, or ulcers on the upper and lower extremities and face. Negative for palpations/nodules, purpura, and ecchymosis. EENT: Negative for conjunctiva, mucosal pallor, JVD, LAP, thyromegaly, and glossitis. Supple AND PERRL. EXTREMITIES: Negative for cyanosis, clubbing, and crepitus. LUNGS: Negative to auscultation, respiratory effort, and percussion. CARDIOVASCULAR: Regular rate. Negative for murmurs/S3S4/abnormal sounds, edema, and carotid bruits. ABDOMEN: Negative for masses, hernia, and spleen/liver abnormalities. RECTAL: Not done PSYCHIATRIC: Negative for mood/affect changes, recent AND remote memory changes, and judgement and insight. NEUROLOGICAL: Alert, oriented x person, place, time. Cranial nerves 2-12 intact. Sensory for pain, light touch, vibration intact on all 4 extremities. Reflexes symmetric for biceps/brachioradial/ patella/achilles. MUSCULOSKELETAL: Negative examination of joints, bones, muscles/tendons of all four extremities for inspection, percussion, and palpation. Negative for misallignment, asymmetry, crepitation, tenderness, mass, effusions. Range of motion normal. Negative for joint instability, laxity, dislocation. Gait steady. Negative for swelling, erythema, tenderness, soft tis (more content not included)... Normal [facility] FERRITINon 05-02-2024 Ferritin [Mass/Vol] 163.0 ng/mL 14.7 - 2 05.1 ng/mL [facility] Ferritin SerPl-mCncon 2023 Ferritin [Mass/Vol] 163.0 ng/mL Normal 14.7-205.1 [facility] Comment on above: Order Comment: Speci men Type: BLOOD SPECIMEN Ordering Facility: [facility] Address: [address] [place] [address] Performed By: #### 5 0190-8, 2275-4 #### [facility] CLIA [id number] [address] [place] [address] [place] Ferritin [Mass/Vol]on 2023 Interpretation and review of laboratory results Normal [facility] Iron and Iron binding capaci ty panelon 05-02-2024 Interpretation and review of laboratory results Normal [facility] Iron [Mass/Vol] 99 ug/dL 41 - 186 ug/dL [facility] Iron binding capacity [Mass/Vol] 271 ug/dL 232 - 386 ug/dL [facility] Iron/TIBC [Molar ratio] 36.5 % 15.0 - 57.0 % [facility] Iron [Mass/Vol] 99 ug/dL Normal 41-186 [facility] Comment on above: Order Comment: Nadiai men Type: BLOOD SPECIMEN Ordering Facility: [facility] Address: [address] [place] [address] Performed By: #### 5 0190-8, 2275-4 #### [facility] CLIA [id number] [address] [place] [address] [place] Iron binding capacity [Mass/Vol] 271 ug/dL Normal 232-386 [facility] Comment on above: Order Comment: Nadiai men Type: BLOOD SPECIMEN Ordering Facility: [facility] Address: [address] [place] [address] Performed By: #### 5 0190-8, 2276-4 #### [facility] CLIA [id number] [address] [place] [address] [place] Iron/TIBC [Molar ratio] 36.5 % Normal 15.0-57.0 [facility] Comment on above: Order Comment: Speci men Type: BLOOD SPECIMEN Ordering Facility: [facility] Address: [address] [place] [address] Performed By: #### 5 0190-8, 6-4 #### [facility] CLIA [id number] [address] [place] [address] [place] No Panel Informationon 05-02 [facility] RETICULOCYTE COUNTon 024 Reticulocytes (Bld) [#/Vol] 0.076 10*3/uL [facility] Retics #on 05-02-2024 Reticulocytes (Bld) [#/Vol] 0.51413 10*3/uL Normal 0.018-0.100 [facility] Comment on above: Order Comment: Speci men Type: BLOOD SPECIMEN Ordering Facility: [facility] Address: [address] [place] [address] Performed By: #### 5 7021-8, 88990-0 #### [facility] CLIA [id number] [address] [place] [address] Reticulocytes (Bld) [#/Vol]o n 05-02-2024 Interpretation and review of laboratory results Normal [facility] Reticulocytes/100 RBC (Bld) 1.7 % 0.4 - 2.0 % [facility] Reticulocytes/100 RBC (Bld) 1.7 % Normal 0.4-2.0 [facility] Comment on above: Order Comment: Speci men Type: BLOOD SPECIMEN Ordering Facility: [facility] Address: [address] [place] [address] Performed By: #### 5 7021-8, 28813-2 #### [facility] CLIA [id number] [address] [place] [address] Eduard 03-21-2024 L Specimen: [id number] Received: 03/21/24 Status: IVY Jones Num: [id number] Spec Type: Surgical Subm Dr: Jose Monge DPM, MS Tissues: A DIGIT AMPUTATION (RT 2ND TOE) Procedures: HE/2, Gross/Micro L4, Decalcification Age/ Patient Sex Location Account Attending Physician [facility] 79/F LABELL [id number] Jose Monge DPM, MS SPEC NUM: [id number] RECD: 03/21/24 STATUS: IVY JONES NUM: [id number] JACE: 03/21/[address]: Jose Monge DPM, MS ENTERED: 03/21/[address]: Carmen Sloan SPEC TYPE: Surgical DEPT: TEX WHEELER ORDERED: HE/2, Gross/Micro L4, Decalcification ORDERED: HE/2, Gross/Micro L4, Decalcification Pathological Diagnosis Right second toe, amputation: -Intact toe without significant abnormality except thick hypertropic tendinous portion attaching to the cortical surface of the intact toe bone, and with 1 nodular focus of traumatic neuroma in the adjacent subcutaneous area, per effect of the [facility] right foot Gross Description Received in formalin labeled with the patient's name, date of and right second toe is a 3.3 x 2.0 x 1.5 cm transected digit with an attached mejia nail. The skin surface is mejia and unremarkable. No lesions or ulcerated areas are present. The skin and soft tissue margins and proximal bone margin all appear grossly viable and are inked black. Sectioning into the digit reveals firm yellow spongy bone matrix with surrounding yellow viable soft tissue. A full-thickness longitudinal section to include skin and underlying soft tissue and bone submitted following decalcification in A1. TW -------- Specimen: [id number] Received: 03/21/24 Status: IVY Jones Num: [id number] Spec Type: Surgical Subm Dr: Jose Monge DPM, MS Tissues: A DIGIT AMPUTATION (RT 2ND TOE) Procedures: LACEY/Roberto, Gross/Micro L4, Decalcification -------- Patient: [facility]by [id number] (Continued) -------- Specimen: [id number] Received: 03/21/24 (Continued) Signed (signature on file) Velasquez Pal MD 03/26/24 1705 -------- Specimen: [id number] Received: 03/21/24 Status: IVY Jones Num: [id number] Spec Type: Surgical Subm Dr: Jose Monge DPM, MS Tissues: A DIGIT AMPUTATION (RT 2ND TOE) Procedures: LAECY/2, Gross/Micro L4, Decalcification -------- Patient: Genesis [id number] (Continued) -------- Specimen: [id number] Received: 03/21/24 (Continued) Microscopic Description Microscopic examinations are performed CPT Codes 77802 [id number] -------- -------- Specimen: [id number] Received: 03/21/24 Status: IVY Jones Num: [id number] Spec Type: Surgical Subm Dr: Jose Monge,DPLuigi, MS Tissues: A DIGIT AMPUTATION (RT 2ND TOE) Procedures: HE/2, Gross/Micro L4, Decalcification -------- Patient: [facility] Darby [id number] (Continued) -------- Signed (signature on file) Chin-Sen Pal MD 03/26/241704 [facility] 12-11-2023 L Specimen: Received: 12/12/23 Status: SOLOMONVanesa Jones Num: [id number] Spec Type: Impression Subm Dr: Guillermo Leroy MD Tissues: PATHPER Procedures: PATHREVIEW Age/ Patient Sex Location Account Attending Physician [facility] 78/F LABELL [id number] Guillermo Leroy MD SPEC NUM: [id number] RECD: 12/12/23 STATUS: IVY LARAJason NUM: [id number] JACE: 12/11/[address]: Guillermo Leroy MD ENTERED: 12/12/[address] [facility] [address]: Carmen Sloan SPEC TYPE: Impression DEPT: TEX Baldwin ENTERED BY: [id number] RECV BY: [id number] ORDERED: PATHREVIEW ORDERED: PATHREVIEW Pathologist Review Frequent atypical lymphocytes are noted. Atypical infection should be ruled out. [id number] -------- -------- Specimen: [id number] Received: 12/12/23 Status: IVY Jones Num: [id number] Spec Type: Impression Subm Dr: Guillermo Leroy MD Tissues: PATHPER Procedures: PATHREVIEW -------- Patient: [facility] Darby [id number] (Continued) -------- Signed (signature on file) Rudolph Meneses MD 12/13/23 1518 Normal [facility] MG MAMM SCREEN 3D JUAN MANUEL CADon 07-06-2022 MG MAMM SCREEN 3D JUAN MANUEL CAD Patient: GENESIS DARBY Exam Date: 07/06/2022 : 1945 Gender:F Ordering : DR EFRAIN HOGAN D.ODaniele Admission #: [id number] Family : Order #: [id number] CLICK HERE TO VIEW EXAM RADIOLOGY REPORT [...] unknown cancer at age 69. LOCATION: [facility] BREAST COMPOSITION: Heterogeneously dense,which may obscure small [...] MD on 07/06/2022 at 15:[address] [facility] CBC AUTO DIFFon 06-08-2022 BASO # 0.1 103/ul Normal 0.0-0.1 [facility] Comment on above: Performed By: #### C BC #### [facility] [address] [place] [address] Dr. Suzi Pal Basophils/100 WBC (Bld) 1.2 % Normal 0.2-2.0 [facility] Comment on above: Performed By: #### C BC #### [facility] [address] [place] [address] Dr. Suzi Pal EO # 0.3 103/ul Normal 0.0-0.7 [facility] Comment on above: Performed By: #### C BC #### [facility] [address] [place] [address] Dr. Suzi Pal Eosinophils/100 WBC (Bld) 2.5 % Normal 0.9-7.0 [facility] Comment on above: Performed By: #### C BC #### [facility] [address] [place] [address] Dr. Suzi Pal Erythrocyte distribution width (RBC) [Ratio] 14.6 % Normal 11.0-15.0 [facility] Comment on above: Performed By: #### C BC #### [facility] [address] [place] [address] Dr. Suzi Pal Hematocrit (Bld) [Volume fraction] 43.7 % Normal 36.0-48.0 [facility] Comment on above: Performed By: #### C BC #### [facility] [address] [place] [address] Dr. Suzi Pal Hemoglobin (Bld) [Mass/Vol] 14.5 g/dL Normal 12.0-16.0 [facility] Comment on above: Performed By: #### C BC #### [facility] [address] [place] [address] Dr. Suzi Pal IG # 0.03 10e3/ul Normal 0.00-0.03 [facility] Comment on above: Performed By: #### C BC #### [facility] [address] [place] [address] Dr. Suzi Pal IG % 0.3 % Normal 0.0-0.5 [facility] Comment on above: Performed By: #### C BC #### [facility] [address] [place] [address] Dr. Suzi Pal LYMPH # 4.6 103/ul Critically high 1.2-3.8 [facility] Comment on above: Performed By: #### C BC #### [facility] [address] [place] [address] Dr. Suzi Pal Lymphocytes/100 WBC (Bld) 44.0 % Normal 20.5-60.0 [facility] Comment on above: Performed By: #### C BC #### [facility] [address] [place] [address] Dr. Szui Pal MANUAL DIFF REQ NO Normal [facility] Comment on above: Performed By: #### C BC #### [facility] [address] [address] [address] Suzi Pal MCH (RBC) [Entitic mass] 32.4 pg Normal 26.7-34.0 [facility] Comment on above: Performed By: #### C BC #### [facility] [address] [place] [address] Dr. Suzi Pal MCHC (RBC) [Mass/Vol] 33.2 g/dL Normal 29.9-35.2 [facility] Comment on above: Performed By: #### C BC #### [facility] [address] [place] [address] Dr. Suzi Pal MCV (RBC) [Entitic vol] 97.8 fL Normal 81.0-99.0 [facility] Comment on above: Performed By: #### C BC #### [facility] [address] [place] [address] Dr. Suzi Pal MONO # 1.1 103/ul Critically high 0.3-0.8 [facility] Comment on above: Performed By: #### C BC #### [facility] [address] [place] [address] Dr. Suzi Pal Monocytes/100 WBC (Bld) 10.5 % Normal 1.7-12.0 [facility] Comment on above: Performed By: #### C BC #### [facility] [address] [place] [address] Dr. Suzi Pal NEUT # 4.3 103/ul Normal 1.4-6.[address] [facility] Comment on above: Performed By: #### C BC #### [facility] [address] [place] [address] Dr. Suzi Pal Neutrophils/100 WBC (Bld) 41.5 % Critically low 43.0-75.[address] [facility] Comment on above: Performed By: #### C BC #### [facility] [address] [place] [address] Dr. Suzi Pal Platelet mean volume (Bld) [Entitic vol] 8.9 fL Critically low 9.5-13.5 [facility] Comment on above: Performed By: #### C BC #### [facility] [address] [address] [address] Suzi Pal PLT 414 103/ul Normal 150-450 [facility] Comment on above: Performed By: #### C BC #### [facility] [address] [place] [address] Dr. Suzi Pal RBC 4.47 106/ul Normal 4.20-5.40 [facility] Comment on above: Performed By: #### C BC #### [facility] [address] [address] [address] Suzi Pal WBC 10.4 103/ul Normal 4.0-11.0 [facility] Comment on above: Performed By: #### C BC #### [facility] [address] [place] [address] Dr. Suzi Pal PROF 14(COMP METB)on 022 Albumin [Mass/Vol] 3.8 g/dL Normal 3.4-5.0 [facility] Comment on above: Performed By: #### T 4, CMP, TSH #### [facility] [address] [place] [address] Dr. Suzi Pal Albumin/Globulin [Mass ratio] 0.9 {ratio} Normal [facility] Comment on above: Performed By: #### T 4, CMP, TSH #### [facility] [address] [place] [address] Dr. Suzi Pal ALP [Catalytic activity/Vol] 68 U/L Normal 46-[address] [facility] Comment on above: Performed By: #### T 4, CMP, TSH #### [facility] [address] [place] [address] Dr. Suzi Pal ALT [Catalytic activity/Vol] 23 U/L Normal 14-59 [facility] Comment on above: Performed By: #### T 4, CMP, TSH #### [facility] [address] [place] [address] Dr. Suzi Pal Anion gap [Moles/Vol] 11.0 mmol/L Normal [facility] Comment on above: Performed By: #### T 4, CMP, TSH #### [facility] [address] [address] [address] Suzi Pal AST [Catalytic activity/Vol] 16 U/L Normal 15-37 [facility] Comment on above: Performed By: #### T 4, CMP, TSH #### [facility] [address] [place] [address] Dr. Suzi Pal Bilirubin [Mass/Vol] 0.5 mg/dL Normal 0.2-1.0 [facility] Comment on above: Performed By: #### T 4, CMP, TSH #### [facility] [address] [place] [address] Dr. Suzi Pal Calcium [Mass/Vol] 9.6 mg/dL Normal 8.5-10.1 [facility] Comment on above: Performed By: #### T 4, CMP, TSH #### [facility] [address] [place] [address] Dr. Suzi Pal Chloride [Moles/Vol] 103 mmol/L Normal 98-[address] [facility] Comment on above: Performed By: #### T 4, CMP, TSH #### [facility] [address] [place] [address] Dr. Suzi Pal CO2 [Moles/Vol] 31.8 mmol/L Normal 21.0-32.0 [facility] Comment on above: Performed By: #### T 4, CMP, TSH #### [facility] [address] [place] [address] Dr. Suzi Pal Creatinine [Mass/Vol] 0.75 mg/dL Normal 0.55-1.02 [facility] Comment on above: Performed By: #### T 4, CMP, TSH #### [facility] [address] [place] [address] Dr. Suzi Pal EGFR-AF COLOMBIAN >60 Normal >=60 [facility] Comment on above: Performed By: #### T 4, CMP, TSH #### [facility] [address] [place] [address] Dr. Suzi Pal EGFR-NON AF COLOMBIAN >60 Normal >=[address] [facility] Comment on above: Performed By: #### T 4, CMP, TSH #### [facility] [address] [place] [address] Dr. Suzi Pal Globulin (S) [Mass/Vol] 4.0 g/dL Normal [facility] Comment on above: Performed By: #### T 4, CMP, TSH #### [facility] [address] [place] [address] Dr. Suzi Pal Glucose [Mass/Vol] 88 mg/dL Normal 74-106 [facility] Comment on above: Performed By: #### T 4, CMP, TSH #### [facility] [address] [place] [address] Dr. Suzi Pal Potassium [Moles/Vol] 3.8 mmol/L Normal 3.5-5.[address] [facility] Comment on above: Performed By: #### T 4, CMP, TSH #### [facility] [address] [place] [address] Dr. Suzi Pal Protein [Mass/Vol] 7.8 g/dL Normal 6.4-8.2 [facility] Comment on above: Performed By: #### T 4, CMP, TSH #### [facility] [address] [place] [address] Dr. Suzi Pal Sodium [Moles/Vol] 142 mmol/L Normal 136-145 [facility] Comment on above: Performed By: #### T 4, CMP, TSH #### [facility] [address] [place] [address] Dr. Suzi Pal Urea nitrogen [Mass/Vol] 15.0 mg/dL Normal 7.0-18.[address] [facility] Comment on above: Performed By: #### T 4, CMP, TSH #### [facility] [address] [place] [address] Dr. Suzi Pal Urea nitrogen/Creatinine [Mass ratio] 20.0 mg/mg Normal [facility] Comment on above: Performed By: #### T 4, CMP, TSH #### [facility] [address] [place] [address] Dr. Suzi Pal T4on 06-08-2022 T4 [Mass/Vol] 7.80 ug/dL Normal 4.80-13.90 [facility] Comment on above: Performed By: #### T 4, CMP, TSH #### [facility] [address] [address] [address] Suzi Pal TSHon 06-08-2022 TSH 2.655 uIU/mL Normal 0.358-3.740 [facility] Comment on above: Performed By: #### T 4, CMP, TSH #### [facility] [address] [address] [address] Suzi Pal Vital Signs Date Time Vital Sign Value Performing Clinician Faci lity 05-02-2024 10:44-0400 Body height 160 cm Aminta Randall MD Work Phone: [facility] 05-02-2024 10:44-0400 Body mass index (BMI) [Ratio] 28.31 kg/m2 Aminta Randall MD Work Phone: [facility] 05-02-2024 10:44-0400 Body temperature 97.7 [degF] Aminta Randall MD Work Phone: [facility] 05-02-2024 10:44-0400 Body weight 72.5 kg Aminta Randall MD Work Phone: [facility] 05-02-2024 10:44-0400 Diastolic blood pressure 80 mm[Hg] Aminta Randall MD Work Phone: [facility] 05-02-2024 10:44-0400 Heart rate 106 /min Aminta Randall MD Work Phone: [facility] 05-02-2024 10:44-0400 Respiratory rate 16 /min Aminta Randall MD Work Phone: [facility] 05-02-2024 10:44-0400 SaO2% (BldA) [Mass fraction] 94 % Aminta Randall MD Work Phone: [facility] 05-02-2024 10:44-0400 Systolic blood pressure 134 mm[Hg] Aminta Randall MD Work Phone: [facility] Encounters Encounter Date Encounter Type Care Provider Facility Start: 06-24-2024 End: 06-24-2024 Orders Only Bonita Pugh PRINTING TECHNICIAN Work Phone: [facility] Comment on above: Screening for colon cancer (Primary Dx) Start: 05-02-2024 End: 05-02-2024 Patient encounter procedure Aminta Randall MD Work Phone: Hematology/Oncology Start: 05-02-2024 End: 05-02-2024 ambulatory Aminta Randall MD Work Phone: Hematology/Oncology Comment on above: Leukocytosis, unspec ified type (Primary Dx); Postsplenectomy thrombocytosis; History of lymphoma Start: 03-21-2024 End: 03-21-2024 [facility] Work Phone: Start: 03-21-2024 End: 03-21-2024 Departed Referred DPLuigi Monge Work Phone: [facility] Start: 02-26-2024 Patient encounter procedure Bonita Pugh PRINTING TECHNICIAN Work Phone: [facility] Start: 02-26-2024 End: 02-26-2024 ambulatory CARREON FAWWAD Not Available Start: 01-17-2024 End: 01-17-2024 ambulatory CARREON FAWWAD Not Available Start: 12-11-2023 End: 12-11-2023 ambulatory Guillermo Leroy [facility] Work Phone: Start: 12-11-2023 End: 12-11-2023 Departed Referred MD Guillermo Leroy Work Phone: [facility] Start: 11-13-2023 End: 11-13-2023 ambulatory CARREON FAWWAD Not Available Start: 10-30-2023 End: 10-30-2023 ambulatory CARREON FAWWAD Not Available Start: 08-22-2023 End: 08-22-2023 ambulatory FAWWAD Not Available Start: 08-02-2023 End: 08-02-2023 ambulatory FAWWAD Not Available Start: 07-06-2022 End: 07-07-[address] MAMIE FREEMAN Facility:[facility] Start: 06-08-2022 End: 06-09-[address] EFRAIN HOGAN Facility:[facility] Plan of Treatment Date Care Activity Detail Author Start: 02-25-2025 Medicare Annual Wellness (AWV) Medicare Annual Wellness (AWV) [facility] Start: 02-05-2025 End: 02-05-2025 Patient encounter procedure 02/05/2025 10:00 AM EDT Office Visit [facility] [address] [place] [address] Bonita Pugh, ADRIANNA [address] [place] [address] [facility] Start: 08-21-2024 Pneumococcal Vaccine : 65+ Years (1 of 2 - PCV) Pneumococcal Vaccine: 65+ Years (1 of 2 - PCV) [facility] Comment on above: Postponed from 01/21 (Patient Does Not Have Time) Start: 06-24-2024 End: 06-24-2025 Noninvasive colorectal cancer DNA and occult blood screening [Presence] in Stool Cologuard colon cancer screening Lab Routine Screening for colon cancer Expected: 06/24/2024 (Approximate), Expires: 06/24/2025 [facility] Work Phone: Comment on above: Expected: 06/24/2024 (Approximate), Expires: 06/24/2025 Start: 04-21-2024 Influenza vaccination Influenza Vacc ine (#1) [facility] Start: 08-21-2023 Advance Directive Discussion Advance Directive Discussion [facility] Start: 05-06-2016 Diabetes Screening Diabetes Screenin g [facility] Start: 01-21-2009 Screening for osteoporosis Bone Density Screening [facility] Start: 2004 RSV Vaccine (1 - 1-d ose 60+ series) RSV Vaccine (1 - 1-dose 60+ series) [facility] Start: 01-21-1963 Shingrix Vaccine (1 of 2) Shingrix Vaccine (1 of 2) [facility] Start: 01-21-1963 Urine microalbumin profile DTaP,Tdap,Td Vaccine (1 - Tdap) [facility] Start: 01-21-1962 Anxiety Screening Anxiety Screening [facility] Start: 01-21-1962 Depression Screening Depression Scre ening [facility] Start: 01-21-1950 Pneumococcal Vaccine : 65+ (1 of 2 - PCV) Pneumococcal Vaccine: 65+ (1 of 2 - PCV) [facility] Start: 01-21-1949 Covid-19 Vaccine (#1) Covid-19 Vacci ne (#1) [facility] Immunizations Immunization Date Immunization Notes Care Provider Augustin cervantes 05-29-2024 influenza, seasonal, injectable Bonita Pugh PRINTING TECHNICIAN Work Phone: [facility] Payers Date Payer Category Payer Self-pay [id number] 2023 Medicare DEVOTED MEDICARE [employer]OTED HEALTH [place] [id number] 2023-Present [phone] [address] [place] [address] O [id number] 2023 Medicare (Managed Care) [employer]ED HEALTH [id number] 2023 Unknown [id number] 1959 Unknown [id number] 1945 Unknown [id number] 2.16.840.1.757677.3.579. 2.593 1945 Unknown [id number] 2.16.840.1.895820.3.579. 2.593 1945 Unknown [id number] 2.16.840.1.847069.3.579. 2.1259 1945 Unknown [id number] 2.16.840.1.265001.3.579. 2.1259 1945 Unknown [id number] 2.16.840.1.394724.3.579. 2.1259 1945 Unknown [id number] 2.16.840.1.646290.3.579. 2.1259 1945 Unknown [id number] 2.16.840.1.997674.3.579. 2.1259 1945 Unknown [id number] 2.16.840.1.154947.3.579. 2.1259 Medicare [facility] [id number] Unknown [id number] 2.16.840.1.380982.3.579. 2.531 Unknown [id number] 2.16.840.1.215830.3.579. 2.531 Social History Date Type Detail Facility Tobacco smoking status NHIS Unknown if ever smoked [facility] Work Phone: Start: 1945 Sex Assigned At Female F [facility] Start: 10-30-2023 End: 05-02-2024 Tobacco smoking status NHIS Never smoked tobacco [facility] Start: 10-30-2023 End: 05-02-2024 Tobacco use and exposure Smokeless tobacco non-user [facility] Start: 05-02-2024 Alcoholic beverage intake Current non-drinker of alcohol (finding) [facility] Start: 02-26-2024 End: 05-02-2024 History of Social function [facility] Start: 02-26-2024 End: 05-02-2024 Tobacco use panel [facility] National Score (1-100), lower number is lower risk 93 [facility] Start: 1945 Sex assigned at Not on file C leveland [facility] Start: 02-26-2024 Alcoholic beverage intake Lifetime non-drinker (finding) [facility] NEGATED: Highlighted rowStart: NINF History of tobacco use Passive smoker [facility] History of Present illness Narrative 06-24-2024 Bonita Pugh NP - 06/24/2024 2:37 PM EST Note Date & Type Note Facility 06-24-2024 History of Presen t illness Narrative col documented in this encounter [facility] Progress note 05-01-2024 Note Date & Type Note Facility 05-01-2024 Note HNO ID: [id number] Author: AMINTA RANDALL MD Service: ? Author Type: Physician Type: Progress Notes Filed: 05/02/2024 20:14 Note Text: PATIENT NAME: Genesis Darby DATE: 05/02/2024 PRIMARY CARE PHYSICIAN: Bonita Pugh APRN OTHER PHYSICIANS: Dr. Guillermo Leroy ([facility]) HPI: This is an 79 year old female with a past history of lymphoma status post splenectomy, referred for evaluation of persistent leukocytosis and thrombocytosis. 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 She underwent splenectomy on 09/17/2009. Subsequently she received chemotherapy with R-CHOP x 4 cycles followed by involved field radiation with complete response. She has had no evidence of recurrent lymphoma. Recent lab per his PCP revealed mild leukocytosis and thrombocytosis. She was seen by hematology February 2023 and extensive evaluation revealed no evidence of hematologic malignancy, and it was felt her abnormal CBC is secondary to her previous splenectomy. On review of records she has had intermittent mild leukocytosis and thrombocytosis ever since her splenectomy in August 2009. On evaluation today the patient feels well. No recent fevers or signs of infection. No evidence of bleeding or bruising. No unusual pain. She does not smoke or drink. Current medications listed. She has not been on recent steroids. MEDICATIONS: Current Outpatient Medications Medication Sig SIMVASTATIN 40 mg tablet Take 40 mg by mouth daily at bedtime. No current facility-administered medications for this visit. ALLERGIES: ALLERGIES No Known Allergies PAST MEDICAL HISTORY: No past medical history on file. PAST SURGICAL HISTORY: No past surgical history on file. FAMILY HISTORY: No family history on file. SOCIAL HISTORY: Social History Tobacco Use Smoking status: Never Smokeless tobacco: Never Substance Use Topics Alcohol use: No Drug use: No COMPLETE REVIEW OF SYSTEMS: CONSTITUTION: Negative for pain, fatigue, weight loss, or appetite loss. EENT: Negative for mouth soreness, antibiotics use, epistaxis, visual problems, neck or facial swelling, fever/chills, bleeding gums, or hearing loss. CV: Negative for edema, calf swelling, palpitations, or chest pain. RESPIRATORY: Negative for cough, SOB, hemoptysis, or wheezing. GI: Negative for nausea/vomiting, heartburn, vomiting blood, dysphasia, diarrhea, blood in stool, constipation, early satiety, PICA, vegetarian, poor nutrition, abdominal fullness, or abdominal pain. NEUROLOGICAL: Negative for numbness/tingling, dizziness, gait disturbance, headache, speech disturbance, tremor, hemiparesis/sensory loss, or change in mental status. MUSCULOSKELETAL: Negative for joint pain, joint swelling, or proximal muscle weakness. SKIN: Negative for hair loss, bruising, nail changes, rash, itching, pallor, or jaundice. ENDO/URO: Negative for hot flashes, cold or heat intolerance, urinary frequency, urinary hesitancy, menorrhagia, or hematuria. PSYCH: Negative for anxiety, depression, or other. PHYSICAL EXAM: BP 134/80 Pulse 106 Temp 36.5 ?C (97.7 ?F) (Temporal) Resp 16 Ht 160 cm (5' 3 ) Wt 72.5 kg (159 lb 13.3 oz) SpO2 94% BMI 28.31 kg/m? GENERAL EXAM: Well developed/well nourished; in no acute distress. SKIN: Negative for lesions, rashes, or ulcers on the upper and lower extremities and face. Negative for palpations/nodules, purpura, and ecchymosis. EENT: Negative for conjunctiva, mucosal pallor, JVD, LAP, thyromegaly, and glossitis. Supple AND PERRL. EXTREMITIES: Negative for cyanosis, clubbing, and crepitus. LUNGS: Negative to auscultation, respiratory effort, and percussion. CARDIOVASCULAR: Regular rate. Negative for murmurs/S3S4/abnormal sounds, edema, and carotid bruits. ABDOMEN: Negative for masses, hernia, and spleen/liver abnormalities. RECTAL: Not done PSYCHIATRIC: Negative for mood/affect changes, recent AND remote memory changes, and judgement and insight. NEUROLOGICAL: Alert, oriented x person, place, time. Cranial nerves 2-12 intact. Sensory for pain, light touch, vibration intact on all 4 extremities. Reflexes symmetric for biceps/brachioradial/patella/achilles. MUSCULOSKELETAL: Negative examination of joints, bones, muscles/tendons of all four extremities for inspection, percussion, and palpation. Negative for misallignment, asymmetry, crepitation, tenderness, mass, effusions. Range of motion normal. Negative for joint instability, laxity, dislocation. Gait steady. Negative for swelling, erythema, tenderness, soft tissue swelling, and atrophy. PATHOLOGY: 12/13/2023 P guys eripheral blood flow cytometry ([facility]) Mature granulocytes show lack of CD16 expression. Lymphocytosis. No other significant immunophenotypic abnormality detected. 08/28/2009 Splenectomy ([facility]) Findings consistent with large B- (more content not included)... [facility] History of Present illness Narrative 05-01-2024 Aminta Randall MD - 05/01/2024 5:44 PM EDT Note Date & Type Note Facility 05-01-2024 History of Presen t illness Narrative PATIENT NAME: Genesis Darby DATE: 05/02/2024 PRIMARY CARE PHYSICIAN: Bonita Pugh APRN OTHER PHYSICIANS: Dr. Guillermo Leroy ([facility]) HPI: This is an 79 year old female with a past history of lymphoma status post splenectomy, referred for evaluation of persistent leukocytosis and thrombocytosis. 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 She underwent splenectomy on 09/17/2009. Subsequently she received chemotherapy with R-CHOP x 4 cycles followed by involved field radiation with complete response. She has had no evidence of recurrent lymphoma. Recent lab per his PCP revealed mild leukocytosis and thrombocytosis. She was seen by hematology February 2023 and extensive evaluation revealed no evidence of hematologic malignancy, and it was felt her abnormal CBC is secondary to her previous splenectomy. On review of records she has had intermittent mild leukocytosis and thrombocytosis ever since her splenectomy in August 2009. On evaluation today the patient feels well. No recent fevers or signs of infection. No evidence of bleeding or bruising. No unusual pain. She does not smoke or drink. Current medications listed. She has not been on recent steroids. MEDICATIONS: Current Outpatient Medications Medication Sig SIMVASTATIN 40 mg tablet Take 40 mg by mouth daily at bedtime. No current facility-administered medications for this visit. ALLERGIES: ALLERGIES No Known Allergies PAST MEDICAL HISTORY: No past medical history on file. PAST SURGICAL HISTORY: No past surgical history on file. FAMILY HISTORY: No family history on file. SOCIAL HISTORY: Social History Tobacco Use Smoking status: Never Smokeless tobacco: Never Substance Use Topics Alcohol use: No Drug use: No COMPLETE REVIEW OF SYSTEMS: CONSTITUTION: Negative for pain, fatigue, weight loss, or appetite loss. EENT: Negative for mouth soreness, antibiotics use, epistaxis, visual problems, neck or facial swelling, fever/chills, bleeding gums, or hearing loss. CV: Negative for edema, calf swelling, palpitations, or chest pain. RESPIRATORY: Negative for cough, SOB, hemoptysis, or wheezing. GI: Negative for nausea/vomiting, heartburn, vomiting blood, dysphasia, diarrhea, blood in stool, constipation, early satiety, PICA, vegetarian, poor nutrition, abdominal fullness, or abdominal pain. NEUROLOGICAL: Negative for numbness/tingling, dizziness, gait disturbance, headache, speech disturbance, tremor, hemiparesis/sensory loss, or change in mental status. MUSCULOSKELETAL: Negative for joint pain, joint swelling, or proximal muscle weakness. SKIN: Negative for hair loss, bruising, nail changes, rash, itching, pallor, or jaundice. ENDO/URO: Negative for hot flashes, cold or heat intolerance, urinary frequency, urinary hesitancy, menorrhagia, or hematuria. PSYCH: Negative for anxiety, depression, or other. PHYSICAL EXAM: BP 134/80 Pulse 106 Temp 36.5 C (97.7 F) (Temporal) Resp 16 Ht 160 cm (5' 3 ) Wt 72.5 kg (159 lb 13.3 oz) SpO2 94% BMI 28.31 kg/m GENERAL EXAM: Well developed/well nourished; in no acute distress. SKIN: Negative for lesions, rashes, or ulcers on the upper and lower extremities and face. Negative for palpations/nodules, purpura, and ecchymosis. EENT: Negative for conjunctiva, mucosal pallor, JVD, LAP, thyromegaly, and glossitis. Supple & PERRL. EXTREMITIES: Negative for cyanosis, clubbing, and crepitus. LUNGS: Negative to auscultation, respiratory effort, and percussion. CARDIOVASCULAR: Regular rate. Negative for murmurs/S3S4/abnormal sounds, edema, and carotid bruits. ABDOMEN: Negative for masses, hernia, and spleen/liver abnormalities. RECTAL: Not done PSYCHIATRIC: Negative for mood/affect changes, recent & remote memory changes, and judgement and insight. NEUROLOGICAL: Alert, oriented x person, place, time. Cranial nerves 2-12 intact. Sensory for pain, light touch, vibration intact on all 4 extremities. Reflexes symmetric for biceps/brachioradial/patella/achilles . MUSCULOSKELETAL: Negative examination of joints, bones, muscles/tendons of all four extremities for inspection, percussion, and palpation. Negative for misallignment, asymmetry, crepitation, tenderness, mass, effusions. Range of motion normal. Negative for joint instability, laxity, dislocation. Gait steady. Negative for swelling, erythema, tenderness, soft tissue swelling, and atrophy. PATHOLOGY: 12/13/2023 P guys eripheral blood flow cytometry ([facility]) Mature granulocytes show lack of CD16 expression. Lymphocytosis. No other significant immunophenotypic abnormality detected. 08/28/2009 Splenectomy ([facility]) Findings consistent with large B-cell lymphoma LABS: Hemoglobin (g/dL) Date Value 05/02/2024 14.8 05/06/2013 13.4 Hematocrit (%) Date Value 05/02/2024 43.3 05/06/2013 40.2 WBC (k/uL) Date Value 05/02/2024 10.52 05/06/2013 11.95 Platelet Count (k/uL) Date Value 05/02/2024 353 05/06/2013 414 12/11/2023 SPEP/SIEP No monoclonal protein. IgG levels within normal limits. Serum free kappa 29.7, serum free lambda 16.2, ratio 1.83 RADIOLOGY/OTHER STUDIES: 04/19/2023 CT abdomen/pelvis ([facility]) No acute abnormality of the abdomen or pelvis. Prior splenectomy. No evidence of lymphadenopathy. ASSESSMENT/PLAN: 1. Postsplenectomy leukocytosis and thrombocytosis - ICD9: 238.71, V45.79, ICD10: D75.838, Z90.81 Since undergoing splenectomy August 2009 the patient has had intermittent mild leukocytosis and thrombocytosis. She has no evidence of underlying hematologic disorder. Current CBC essentially normal. Options for further management were discussed at length with the patient and her . They are aware that it is very common for patients to develop mild leukocytosis and thrombocytosis after splenectomy. This CBC abnormality is not symptomatic and no intervention is indicated. The patient was also made aware that having undergone splenectomy she is at high risk for infection, and she should seek medical attention urgently if she develops any signs or symptoms of infection. Otherwise she does not need hematologic follow-up. We did not schedule a return visit here, but would be happy to see her in the future if we can be of assistance. 2. 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 Status post splenectomy 08/28/2009. Status post adjuvant chemotherapy with R-CHOP x 4 cycles. Status post involved field adjuvant radiation therapy. The patient had a complete response to treatment and has had no evidence of recurrence since. Would monitor clinically and restage as indicated if suspicious signs or symptoms develop. Aminta Randall MD CC: Bonita Pugh APRN documented in this encounter [facility] Evaluation note Note Date & Type Note Facility Evaluation note No assessment [facility]: Evaluation note Note Date & Type Note Facility Evaluation note Diagnosis Leukocytosis, unspecified type- Primary Postsplenectomy thrombocytosis History of lymphoma Personal history of other lymphatic and hematopoietic neoplasm documented in this encounter [facility] Evaluation note Note Date & Type Note Facility Evaluation note Diagnosis Diffuse large B-cell lymphoma, unspecified body region (CMS/HCC)- Primary Gastroesophageal reflux disease without esophagitis Esophageal reflux URTI (acute upper respiratory infection)- Primary Acute upper respiratory infections of unspecified site Medicare annual wellness visit, subsequent- Primary Screening for colon cancer- Primary Special screening for malignant neoplasms, colon documented in this encounter [facility] Summary Purpose Family History No Family History Records FoundNo Family History Records FoundNo Family History Records FoundNo Family History Records Found Advance Directives Advance Directive Response Recorded Date/ Time Advance Directives No April 06, 2021 2:10pm Additional Source Comments INFORMATION SOURCE (unrecogn ized section and content) DATE CREATED AUTHOR 07/10/2022 [facility] DATE CREATED AUTHOR AUTHOR'S ORGANIZ ATION 02/26/2024 [facility] EPIC DATE CREATED AUTHOR AUTHOR'S ORGANIZ ATION 03/29/2024 [facility] DATE CREATED AUTHOR AUTHOR'S ORGANIZ ATION 05/04/2024 [facility] Care Teams (unrecognized sec tion and content) Team Status: Inactive Member Role Status Dates Guillermo Leroy MD Attending Provider Active St art: December 11, 2023 End: December 11, 2023 Team Status: Inactive Member Role Status Dates Jose Monge DPM MS Attending Provider Active Start: March 21, 2024 End: March 21, 2024 Gravel [employer]uler Relationship Specialty Start Date End Date Bonita Pugh APRN [address] [place] [address] PCP - General Family Medicine 04/15/24 Gravel Hauler Relationship Specialty Start Date End Date Shaikh Sales MD [address] [place] [address] PCP - Devoted 08/21/23 Son Loza MD [address] [place] [id number] PCP - General Family Medicine 06/24/24 [place] [phone] Nurse Practitioner Family Medicine 06/24/24 Goals (unrecognized section and content) Goals may be documented in a n alternate sectionGoals may be documented in an alternate section Source Comments (unrecognize d section and content) In the event this informatio n is protected by the Federal Confidentiality of Alcohol and Drug Abuse Patient Records regulations: The Federal rules restrict any use of the information to criminally investigate or prosecute any alcohol or drug abuse patient.[facility] Reason for Visit (unrecogniz ed section and content) Reason Comments Lymphoma New patient consult FOR RECORDS PERTAINING TO PATIENTS WHO ARE [...] BE BASED ON THE PRIMARY CLINICAL RECORDS. [facility]. provides no warranty or guarantee of the accuracy or completeness of information in this document.
== END 2024-07-09 12:45 | disposition home or self-care (01) ==
LOC: MAMMO 12:44
DX: Z12.31 Encounter for screening mammogram for malignant neoplasm of breast (principal); Z80.3 Family history of malignant neoplasm of breast; Z80.7 Family history of other malignant neoplasms of lymphoid, hematopoietic and related tissues; Z80.42 Family history of malignant neoplasm of prostate; Z80.8 Family history of malignant neoplasm of other organs or systems
CPT/HCPCS: 77063; 77067

== ENCOUNTER 2025-05-09 13:26 | Outpatient (OUT) | payer MEDICARE, SELFPAY ==
--- OUTSIDE RECORDS SUMMARY | 2025-05-09 13:39 | XMS_ITS | CCD ---
Author Organization [facility] Care Team Providers Care Ad Compositor Name Role Phone WEST, DR MAMIE Arreola Consulting Unavailable HOUSE, DR ZUNIGA Attending Unavailable HOUSE, DR ZUNIGA Admitting Unavailable HOUSE, DR ZUNIGA Primary Care Unavailable HOUSE, DR ZUNIGA Consulting Unavailable HOUSE, DR ZUNIGA Primary Care Unavailable HOUSE, DR ZUNIGA Consulting Unavailable HOUSE, DR ZUNIGA Attending Unavailable HOUSE, DR ZUNIGA Admitting Unavailable MD Guillermo Leroy Attending Provider SHAIKH SALES Attending Unavailable FAKAMILA, Attending Unavailable FAKAMILA, Attending Unavailable FAKAMILA, Attending Unavailable MÓNIAC, Attending Unavailable MÓNICA, Attending Unavailable JAMEL Monge Attending Provider Guillermo Leroy Admitting Unavailable Guillermo Leroy Attending Unavailable Jose Monge Attending Unavailable Jose Monge Admitting Unavailable Bonita Pugh APRN Primary Care Provider GUILLERMO LEROY Referring Unavailable BONITA PUGH Primary Care Un available AMINTA RANDALL Attending Unavailable BONITA PUGH Primary Care Un available Mónica BEAVERS, Unavailable Son Loza MD Primary Care Provider Bonita Pugh NP Unavailable [phone] Son Loza MD Primary Care Provider Son Loza MD Attending Provider Allergies Allergy Classification Reported Allergen(s) Allergy Type Date of Onset Reaction(s) Facility (1 source) Latex Drug allergy (disorder) [facility] Repository Medications Current Medications Medication Drug Class(es) Dates Sig (Normalized) Sig (Original) [id number] 200 actuat albuterol 0.09 mg/actuat metered dose inhaler (3 sources) beta2-Adrenergic Agonist Start: 05-08-2025 take 1 puff(s) by inhalation every four hours as needed Albuterol Sulfate 90 mcg/actuation HFA aerosol inhaler Active 2 PUFF INHALATION Every 4 hours as needed May 08, 2025 12:00am Complies with drug therapy Start: 11-13-2023 take 2 puff(s) by in halation every four hours for wheezing albuterol HFA 90 mcg/act inhaler Indications: URTI (acute upper respiratory infection) Inhale 2 puffs every 4 (four) hours if needed for wheezing 8.5 g 11/13/2023 Active antiox #8/om3/dha/epa/lut/zeax (PRESERVISION AREDS 2, OMEGA-3, ORAL) (1 source) antiox #8/om3/dha/epa/lut/zeax (PRESERVISION AREDS 2, OMEGA-3, ORAL) Take by mouth once daily. Active ascorbic acid 500 mg extende d release oral capsule (3 sources) Vitamin C Start: 2024 take 1 capsule by mouth once daily Ascorbic Acid (Vitamin C) 500 mg capsule, extended release Active 500 MG PO Daily May 08, 2025 12:00am Complies with drug therapy Ascorbic Acid (V ITAMIN C ER PO) Take by mouth Active aspirin 81 mg delayed release oral tablet (4 sources) Platelet Aggregation Inhibitor, Nonsteroidal Anti-inflammatory Drug Start: 05-08-2025 Aspirin (Adult Lo w Dose Aspirin) 81 mg tablet,delayed release (DR/EC) Active 81 MG PO Daily May 08, 2025 12:00am Complies with drug therapy take 1 tablet by mouth in the mo rning aspirin 81 MG EC tablet Take 81 mg by mouth in the morning. Active cholecalciferol 0.05 mg oral capsule (1 source) Vitamin D take 1 capsule by mouth once daily Cholecalciferol, Vitamin D3, 50 mcg (2,000 unit) cap Take 2,000 Units by mouth once daily. Active docusate calcium 240 mg oral capsule (3 sources) Start: take 1 capsule by mouth once daily Docusate Calcium 240 mg capsule Active 240 MG PO Daily May 08, 2025 12:00am Complies with drug therapy Docusate Calcium (STOOL SOFTENER PO) Take by mouth Active FIBER, HERBAL, ORAL (1 source) FIBER, HERBAL, O RAL Take by mouth once daily. Active inulin 1500 mg chewable tabl et (3 sources) Start: 05-08-2025 Inulin 1.5 gra m tablet,chewable Active GM PO May 08, 2025 12:00am Complies with drug therapy Inulin (FIBER CH OICE PO) Take by mouth Active loratadine 10 mg oral tablet (3 sources) Start: 05-08-2025 take 1 tablet by mouth once daily Loratadine 10 mg tablet Active 10 MG PO Daily May 08, 2025 12:00am Complies with drug therapy Start: 11-13-2023 take 1 tablet by maribel th once daily loratadine (Claritin) 10 MG tablet Indications: URTI (acute upper respiratory infection) Take 1 tablet (10 mg) by mouth Daily 30 tablet 2 11/13/2023 Active Multiple Vitamin (multivitamin) tablet (1 source) take 1 tablet by mouth in the morning Multiple Vitamin (multivitamin) tablet Take 1 tablet by mouth in the morning. Active multivit-min/ferrous fumarate (MULTI VITAMIN ORAL) (1 source) multivit-min/jey mike fumarate (MULTI VITAMIN ORAL) Take by mouth once daily. Active Multivitamin (Daily Multi-Vitamin) tablet (2 sources) Start: 05-08-20 take 1 tablet by mouth once daily Multivitamin (Daily Multi-Vitamin) tablet Active 1 TAB PO Daily May 08, 2025 12:00am Complies with drug therapy omeprazole 20 mg delayed release oral capsule (4 sources) Proton Pump Inhibitor Start: 05-08-20 take 1 capsule by mouth once daily Omeprazole Magnesium 20 mg capsule,delayed release(DR/EC) Active 20 MG PO Daily May 08, 2025 12:00am Complies with drug therapy take 1 tablet by mouth before me altime omeprazole OTC (PriLOSEC OTC) 20 MG EC tablet Take 20 mg by mouth in the morning. Take before meals. Do not crush, chew, or split.. Active oxymetazoline hydrochloride 0.5 mg/ml nasal spray (3 sources) Start: 05-08-2025 Oxymetazoline (Afrin Sinus (Oxymetazoline)) 0.05 % spray,non-aerosol Active 2 SPRAY INTRANASAL Every 12 hours as needed May 08, 2025 12:00am Complies with drug therapy Start: 11-13-2023 oxymetazoline (Afrin Nasal Welda) 0.05 % nasal spray Indications: URTI (acute upper respiratory infection) Administer 2 sprays into each nostril every 12 (twelve) hours if needed for congestion for up to 2 days Do not use for more than 3 days. 30 mL 11/13/2023 Active Zinc Methionine Sulfate-Werner er 15-1 mg capsule (2 sources) Start: 05-08-2025 Zinc Methionin e Sulfate-Copper 15-1 mg capsule Active CAP PO May 08, 2025 12:00am Complies with drug therapy Zinc Sulfate (1 source) Zinc Sulfate (ZI [...] unspecified] Onset: 05-02-2024 05-02-2024 Chronic Esophageal disorders (3 sources) Gastroesophageal reflux disease without esophagitis; Translations: [Gastro-esophageal reflux disease without esophagitis] Onset: 08-22-2023 08-22-2023 Chronic Malaise and fatigue (1 source) Other fatigue; Translations: [OTHER FATIGUE] Onset: 06-12-2022 Episodic Neoplasms of unspecified nature or uncertain behavior (1 source) Post-splenectomy thrombocytosis; 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] 05-02-2024 Episodic Non-Hodgkin`s lymphoma (11 sources) Unspecified B-cell lymphoma, unspecified site; Translations: [Diffuse non-Hodgkin's lymphoma, large cell (clinical)] Onset: 07-02-2012 Chronic Non-Hodgkin`s lymphoma (2 sources) History of malignant lymphoma; Translations: [Personal history of non-Hodgkin lymphomas] Onset: 05-02-2024 05-02-2024 Episodic Other connective tissue disease (3 sources) Pain of toe of right foot; Translations: [Pain in right toe(s)] Onset: 01-17-2024 01-17-2024 Episodic Other screening for suspected conditions (not mental disorders or infectious disease) (5 sources) Encounter for screening mammogram for malignant neoplasm of breast; Translations: [Patient encounter status] Onset: 07-06-2022 Episodic Other upper respiratory disease (3 sources) Lesion of nose; Translations: [Other specified disorders of nose and nasal sinuses] Episodic Other upper respiratory infections (6 sources) Pharyngitis; Translations: [Acute pharyngitis, unspecified] Onset: 10-30-2023 10-30-2023 Episodic Otitis media and related conditions (3 sources) Acute suppurative otitis media without spontaneous rupture of ear drum; Translations: [Acute suppurative otitis media without spontaneous rupture of ear drum, bilateral] Onset: 10-30-2023 10-30-2023 Episodic Residual codes; unclassified (1 source) Family [...] spleen; 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] Onset: 05-02-2024 Episodic Sprains and strains (3 sources) Sprain of left ankle; Translations: [Sprain of unspecified ligament of left ankle, initial encounter] Onset: 01-17-2024 01-17-2024 Episodic Unclassified (1 source) Postsplenectomy thrombocytosis; 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] Onset: 05-02-2024 Unclassified (1 source) J34.89 - Other specified disorders of nose and nasal sinuses Past or Other Problems Problem Classification Problem Date Documented Da te Episodic/Chronic Mood disorders (1 source) Mood disorders Onset: 02-26-2024 02-26-2024 Results Test Name Value Interpretation Reference Range Facility CBC W Auto Differential pane l (Bld)on 05-02-2024 Basophils (Bld) [#/Vol] 0.14 10*3/uL High [facility] Basophils/100 WBC (Bld) 1.3 % [facility] Differential cell count method Nom (Bld) Auto [facility] Eosinophils (Bld) [#/Vol] 0.22 10*3/uL [facility] Eosinophils/100 WBC (Bld) 2.1 % [facility] Erythrocyte distribution width (RBC) [Ratio] 15.0 % 11.5 - 15.0 % [facility] Hematocrit (Bld) [Volume fraction] 43.3 % 36.0 - 46.0 % [facility] Hemoglobin (Bld) [Mass/Vol] 14.8 g/dL 11.5 - 15.5 g/dL [facility] Immature granulocytes (Bld) [#/Vol] 0.04 10*3/uL [facility] Immature granulocytes/100 WBC (Bld) 0.4 % [facility] Interpretation and review of laboratory results Abnormal [facility] Lymphocytes (Bld) [#/Vol] 3.96 10*3/uL [facility] Lymphocytes/100 WBC (Bld) 37.6 % [facility] MCH (RBC) [Entitic mass] 32.4 pg 26.0 - 34.0 pg [facility] MCHC (RBC) [Mass/Vol] 34.2 g/dL 30.5 - 36.0 g/dL [facility] MCV (RBC) [Entitic vol] 94.7 fL 80.0 - 100.0 fL [facility] Monocytes (Bld) [#/Vol] 1.28 10*3/uL High [facility] Monocytes/100 WBC (Bld) 12.2 % [facility] Neutrophils (Bld) [#/Vol] 4.88 10*3/uL [facility] Neutrophils/100 WBC (Bld) 46.4 % [facility] Nucleated RBC (Bld) [#/Vol] NINF [facility] Nucleated RBC/100 WBC (Bld) [Ratio] 0.0 % /100 WBC [facility] Platelet mean volume (Bld) [Entitic vol] 9.0 fL 9.0 - 12.7 fL [facility] Platelets (Bld) [#/Vol] 353 10*3/uL [facility] RBC (Bld) [#/Vol] 4.57 10*6/uL 3.90 - 5.2 0 m/uL [facility] WBC (Bld) [#/Vol] 10.52 10*3/uL [facility] Basophils (Bld) [#/Vol] 0.14 10*3/uL High <0.11 [facility] Comment on above: Order Comment: Speci men Type: BLOOD SPECIMEN Ordering Facility: [facility] Address: [address] [place] [address] Performed By: #### 5 7021-8, 59623-5 #### [facility] CLIA [id number] [address] [place] [address] Basophils/100 WBC (Bld) 1.3 % Normal [facility] Comment on above: Order Comment: Speci men Type: BLOOD SPECIMEN Ordering Facility: [facility] Address: [address] [place] [address] Performed By: #### 5 7021-8, 89765-5 #### [facility] CLIA [id number] [address] [place] [address] Differential cell count method Nom (Bld) Auto Normal [facility] Comment on above: Order Comment: Speci men Type: BLOOD SPECIMEN Ordering Facility: [facility] Address: [facility] [place] [address] Performed By: #### 5 7021-8, 89124-4 #### [facility] CLIA [id number] [address] [place] [address] Eosinophils (Bld) [#/Vol] 0.22 10*3/uL Normal <0.46 [facility] Comment on above: Order Comment: Speci men Type: BLOOD SPECIMEN Ordering Facility: [facility] Address: [address] [place] [address] Performed By: #### 5 7021-8, 76686-7 #### [facility] CLIA [id number] [address] [place] [address] Eosinophils/100 WBC (Bld) 2.1 % Normal [facility] Comment on above: Order Comment: Speci men Type: BLOOD SPECIMEN Ordering Facility: [facility] Address: [address] [place] [address] Performed By: #### 5 7021-8, 51513-1 #### [facility] CLIA [id number] [address] [place] [address] Erythrocyte distribution width (RBC) [Ratio] 15.0 % Normal 11.5-15.0 [facility] Comment on above: Order Comment: Speci men Type: BLOOD SPECIMEN Ordering Facility: [facility] Address: [address] [place] [address] Performed By: #### 5 7021-8, 20603-2 #### [facility] CLIA [id number] [address] [place] [address] Hematocrit (Bld) [Volume fraction] 43.3 % Normal 36.0-46.0 [facility] Comment on above: Order Comment: Speci men Type: BLOOD SPECIMEN Ordering Facility: [facility] Address: [address] [place] [address] Performed By: #### 5 7021-8, 88051-7 #### [facility] CLIA [id number] [address] [place] [address] Hemoglobin (Bld) [Mass/Vol] 14.8 g/dL Normal 11.5-15.5 [facility] Comment on above: Order Comment: Speci men Type: BLOOD SPECIMEN Ordering Facility: [facility] Address: [address] [place] [address] Performed By: #### 5 7021-8, 08790-1 #### [facility] CLIA [id number] [address] [place] [address]489 Immature granulocytes (Bld) [#/Vol] 0.04 10*3/uL Normal <0.10 [facility] Comment on above: Order Comment: Speci men Type: BLOOD SPECIMEN Ordering Facility: [facility] Address: [address] [place] [address] Performed By: #### 5 7021-8, 88801-8 #### [facility] CLIA [id number] [address] [place] [address] Immature granulocytes/100 WBC (Bld) 0.4 % Normal [facility] Comment on above: Order Comment: Speci men Type: BLOOD SPECIMEN Ordering Facility: [facility] Address: [address] [place] [address] Performed By: #### 5 7021-8, 50895-8 #### [facility] CLIA [id number] [address] [place] [address]38 Lymphocytes (Bld) [#/Vol] 3.96 10*3/uL Normal 1.00-4.00 [facility] Comment on above: Order Comment: Speci men Type: BLOOD SPECIMEN Ordering Facility: [facility] Address: [address] [place] [address] Performed By: #### 5 7021-8, 54569-9 #### [facility] CLIA [id number] [address] [place] [address] Lymphocytes/100 WBC (Bld) 37.6 % Normal [facility] Comment on above: Order Comment: Speci men Type: BLOOD SPECIMEN Ordering Facility: [facility] Address: [address] [place] [address] Performed By: #### 5 7021-8, 31476-7 #### [facility] CLIA [id number] [address] [place] [address] 16971 MCH (RBC) [Entitic mass] 32.4 pg Normal 26.0-34.0 [facility] Comment on above: Order Comment: Speci men Type: BLOOD SPECIMEN Ordering Facility: [facility] Address: [address] [place] [address] Performed By: #### 5 7021-8, 27041-5 #### [facility] CLIA [id number] [address] [place] [address]607 MCHC (RBC) [Mass/Vol] 34.2 g/dL Normal 30.5-36.0 [facility] Comment on above: Order Comment: Speci men Type: BLOOD SPECIMEN Ordering Facility: [facility] Address: [address] [place] [address] Performed By: #### 5 7021-8, 92851-6 #### [facility] CLIA [id number] [address] [place] [address]336 MCV (RBC) [Entitic vol] 94.7 fL Normal 80.0-100.0 [facility] Comment on above: Order Comment: Speci men Type: BLOOD SPECIMEN Ordering Facility: [facility] Address: [address] [place] [address] Performed By: #### 5 7021-8, 32028-2 #### [facility] CLIA [id number] [address] [place] [address]698 Monocytes (Bld) [#/Vol] 1.28 10*3/uL High <0.87 [facility] Comment on above: Order Comment: Speci men Type: BLOOD SPECIMEN Ordering Facility: [facility] Address: [address] [place] [address] Performed By: #### 5 7021-8, 38200-2 #### [facility] CLIA [id number] [address] [place] [address]185 Monocytes/100 WBC (Bld) 12.2 % Normal [facility] Comment on above: Order Comment: Speci men Type: BLOOD SPECIMEN Ordering Facility: [facility] Address: [address] [place] [address] Performed By: #### 5 7021-8, 83711-3 #### [facility] CLIA [id number] [address] [place] [address] 31724 Neutrophils (Bld) [#/Vol] 4.88 10*3/uL Normal 1.45-7.50 [facility] Comment on above: Order Comment: Speci men Type: BLOOD SPECIMEN Ordering Facility: [facility] Address: [address] [place] [address] Performed By: #### 5 7021-8, 61578-9 #### [facility] CLIA [id number] [address] [place] [address] 52034 Neutrophils/100 WBC (Bld) 46.4 % Normal [facility] Comment on above: Order Comment: Speci men Type: BLOOD SPECIMEN Ordering Facility: [facility] Address: [address] [place] [address] Performed By: #### 5 7021-8, 11865-5 #### [facility] CLIA [id number] [address] [place] [address] 18531 Nucleated RBC (Bld) [#/Vol] 10*3/uL Normal <0.01 [facility] Comment on above: Order Comment: Speci men Type: BLOOD SPECIMEN Ordering Facility: [facility] Address: [address] [place] [address] Performed By: #### 5 7021-8, 29754-5 #### [facility] CLIA [id number] [address] [place] [address] 02797 Nucleated RBC/100 WBC (Bld) [Ratio] 0.0 /100 WBC Normal [facility] Comment on above: Order Comment: Speci men Type: BLOOD SPECIMEN Ordering Facility: [facility] Address: [address] [place] [address] Performed By: #### 5 7021-8, 23216-3 #### [facility] CLIA [id number] [address] [place] [address] 39133 Platelet mean volume (Bld) [Entitic vol] 9.0 fL Normal 9.0-12.7 [facility] Comment on above: Order Comment: Speci men Type: BLOOD SPECIMEN Ordering Facility: [facility] Address: [address] [place], [place] [address] Performed By: #### 5 7021-8, 67370-0 #### [facility] CLIA [id number] [address] [place] [address]7596 Platelets (Bld) [#/Vol] 353 10*3/uL Normal 150-400 [facility] Comment on above: Order Comment: Speci men Type: BLOOD SPECIMEN Ordering Facility: [facility] Address: [address] [place] [address] Performed By: #### 5 7021-8, 93219-2 #### [facility] CLIA [id number] [address] [place] [address]01 RBC (Bld) [#/Vol] 4.57 10*6/uL Normal 3.90-5.20 [facility] Comment on above: Order Comment: Speci men Type: BLOOD SPECIMEN Ordering Facility: [facility] Address: [address] [place] [address] Performed By: #### 5 7021-8, 27814-7 #### [facility] CLIA [id number] [address] [place] [address] 75392 WBC (Bld) [#/Vol] 10.52 10*3/uL Normal 3.70-11.00 [facility] Comment on above: Order Comment: Speci men Type: BLOOD SPECIMEN Ordering Facility: [facility] Address: [address] [place] [address] Performed By: #### 5 7021-8, 41239-6 #### [facility] CLIA [id number] [address] [place] [address]1066 CNOVSPon 05-02-2024 CNOVSP Visit (SP) Office ([place]) GENESIS DARBY ([id number]) 1945 F Date Time Provider Department 05/02/24 11:15 AM AMINTA RANDALL During your visit today, we recorded the following information about you: Temperature Pulse Respiration Blood pressure 97.7 degrees 106/minute 16/minute 134/80 Weight Height 72.5 kg 1.6 m Aminta Randall MD 05/02/2024 8:14 PM Signed PATIENT NAME: Genesis Darby DATE: 05/02/2024 PRIMARY CARE PHYSICIAN: Bonita Pugh APRN OTHER PHYSICIANS: Dr. Guillermo Leroy ([facility]) HPI: This is an 79 year [...] soft tis (more content not included)... Normal [facility] FERRITINon 05-02-2024 Ferritin [Mass/Vol] 163.0 ng/mL 14.7 - 2 05.1 ng/mL [facility] Ferritin SerPl-mCncon 2023 Ferritin [Mass/Vol] 163.0 ng/mL Normal 14.7-205.1 [facility] Comment on above: Order Comment: Speci men Type: BLOOD SPECIMEN Ordering Facility: [facility] Address: [address] [place] [address] Performed By: #### 5 0190-8, 2276-4 #### [facility] CLIA [id number] [address] [place] [address] [place] Ferritin [Mass/Vol]on 2023 Interpretation and review of laboratory results Normal [facility] Iron and Iron binding capaci ty panelon 05-02-2024 Interpretation and review of laboratory results Normal [facility] Iron [Mass/Vol] 99 ug/dL 41 - 186 ug/dL [facility] Iron binding capacity [Mass/Vol] 271 ug/dL 232 - 386 ug/dL [facility] Iron/TIBC [Molar ratio] 36.5 % 15.0 - 57.0 % [facility] Iron [Mass/Vol] 99 ug/dL Normal 41-186 [facility] Comment on above: Order Comment: Speci men Type: BLOOD SPECIMEN Ordering Facility: [facility] Address: [address] [place] [address] Performed By: #### 5 0190-8, 6-4 #### [facility] CLIA [id number] [address] [place] [address] [place] Iron binding capacity [Mass/Vol] 271 ug/dL Normal 232-386 [facility] Comment on above: Order Comment: Speci men Type: BLOOD SPECIMEN Ordering Facility: [facility] Address: [address] [place] [address] Performed By: #### 5 0190-8, 4 #### [facility] CLIA [id number] [address] [place] [address] [place] Iron/TIBC [Molar ratio] 36.5 % Normal 15.0-57.0 [facility] Comment on above: Order Comment: Speci men Type: BLOOD SPECIMEN Ordering Facility: [facility] Address: [address] [place] [address] Performed By: #### 5 0190-8, 2275-11 #### [facility] CLIA [id number] [address] [place] [address] [place] No Panel Informationon 05-02 [facility] RETICULOCYTE COUNTon 024 Reticulocytes (Bld) [#/Vol] 0.076 10*3/uL [facility] Retics #on 05-02-2024 Reticulocytes (Bld) [#/Vol] 0.05959 10*3/uL Normal 0.018-0.100 [facility] Comment on above: Order Comment: Speci men Type: BLOOD SPECIMEN Ordering Facility: [facility] Address: [address] [place] [address] Performed By: #### 5 7021-8, 15464-2 #### [facility] CLIA [id number] [address] [place] [address]489 Reticulocytes (Bld) [#/Vol]o n 05-02-2024 Interpretation and review of laboratory results Normal [facility] Reticulocytes/100 RBC (Bld) 1.7 % 0.4 - 2.0 % [facility] Reticulocytes/100 RBC (Bld) 1.7 % Normal 0.4-2.0 [facility] Comment on above: Order Comment: Speci men Type: BLOOD SPECIMEN Ordering Facility: [facility] Address: [address] [place] [id number] Performed By: #### 5 7021-8, 18188-0 #### [facility] CLIA [id number] [address] [place], [place] [id number] Eduard 03-21-2024 L Specimen: [id number] Received: 03/21/24 Status: IVY Jones Num: [id number] Spec Type: Surgical Subm Dr: Jose Monge DPM, MS Tissues: A DIGIT AMPUTATION (RT 2ND TOE) Procedures: HE/2, Gross/Micro L4, Decalcification Age/ Patient Sex Location Account Attending Physician Genesis Darby 79/F [facility] [id number] Jose Monge DPM, MS SPEC NUM: [id number] RECD: 03/21/24 STATUS: IVY JONES NUM: [id number] JACE: 03/21/[address]: Jose Monge DPM, [...] of the chronic impingement injury of the hammertoe Clinical Information Hammertoe right foot Gross Description Received in formalin [...] following decalcification in A1. TW -------- Specimen: [id number] Received: 03/21/24 Status: IVY Jones Num: [id number] Spec Type: Surgical Subm Dr: Jose Monge,JAMEL, [place] Tissues: A DIGIT AMPUTATION (RT 2ND TOE) Procedures: HE/2, Gross/Micro L4, Decalcification -------- Patient: Genesis Darby [id number] (Continued) -------- Specimen: [id number] Received: 03/21/24 (Continued) Signed (signature on file) Velsaquez Pal MD 03/26/24 6195 -------- Specimen: [id number] Received: 03/21/24 Status: IVY Jones Num: [id number] Spec Type: Surgical Subm Dr: Jose Monge,DPM, [place] Tissues: A DIGIT AMPUTATION (RT 2ND TOE) Procedures: HE/2, Gross/Micro L4, Decalcification -------- Patient: Genesis Darby [id number] (Continued) -------- Specimen: [id number] Received: 03/21/24 (Continued) Microscopic Description Microscopic examinations are performed CPT Codes 80974 [id number] -------- -------- Specimen: [id number] Received: 03/21/24 Status: IVY Jones Num: [id number] Spec Type: Surgical Subm Dr: Jose Monge,DPM, [place] Tissues: A DIGIT AMPUTATION (RT 2ND TOE) Procedures: HE/2, Gross/Micro L4, Decalcification -------- Patient: Genesis Darby [id number] (Continued) -------- Signed (signature on file) Velasquez Pal MD 03/26/241704 [facility] Physician [facility] 12-11-2023 L Specimen: [id number] Received: 12/12/23 Status: IVY Laraabhilash Num: [id number] Spec Type: Impression Subm Dr: Guillermo Leroy MD Tissues: PATHPER Procedures: PATHREVIEW Age/ Patient Sex Location Account Attending Physician Genesis Darby 78/F LABELL [id number] Guillermo Leroy MD SPEC NUM: [id number] RECD: 12/12/23 STATUS: IVY LARAAbhilash NUM: [id number] JACE: 12/11/[address]: Guillermo Leroy MD ENTERED: 12/12/[address] [facility] [address]: Carmen Sloan SPEC TYPE: Impression DEPT: TEX Baldwin ENTERED BY: [id number] RECV BY: [id number] ORDERED: PATHREVIEW ORDERED: PATHREVIEW Pathologist Review Frequent atypical lymphocytes are noted. Atypical infection should be ruled out. [id number] -------- -------- Specimen: [id number] Received: 12/12/23 Status: IVY Karen Num: [id number] Spec Type: Impression Subm Dr: Guillermo Leroy MD Tissues: PATHPER Procedures: PATHREVIEW -------- Patient: Genesis Darby [id number] (Continued) -------- Signed (signature on file) Rudolph Meneses MD 12/13/23 1518 Normal [facility] MG MAMM SCREEN 3D JUAN MANUEL CADon 07-06-2022 MG MAMM SCREEN 3D JUAN MANUEL CAD Patient: GENESIS DARBY Exam Date: 07/06/2022 : 1945 Gender:F Ordering : DR EFRAIN HOGAN D.O. Admission #: [id number] Family : Order #: [id number] CLICK HERE TO VIEW EXAM RADIOLOGY REPORT [...] unknown cancer at age 69. LOCATION: [facility] BREAST COMPOSITION: Heterogeneously dense,which may obscure [...] MD on 07/06/2022 at 15:13 Normal [facility] CBC AUTO DIFFon 06-08-2022 BASO # 0.1 103/ul Normal 0.0-0.1 [facility] Comment on above: Performed By: #### C BC #### [facility] [address] [address] [address] Suzi Pal Basophils/100 WBC (Bld) 1.2 % Normal 0.2-2.0 [facility] Comment on above: Performed By: #### C BC #### [facility] [address] [address] [address] Suzi Pal EO # 0.3 103/ul Normal 0.0-0.7 [facility] Comment on above: Performed By: #### C BC #### [facility] [address] [address] [address] Suzi Pal Eosinophils/100 WBC (Bld) 2.5 % Normal 0.9-7.0 [facility] Comment on above: Performed By: #### C BC #### [facility] [address] [place] [address] Dr. Suzi Pal Erythrocyte distribution width (RBC) [Ratio] 14.6 % Normal 11.0-15.0 [facility] Comment on above: Performed By: #### C BC #### [facility] [address] [place] [address] Dr. Suzi Pal Hematocrit (Bld) [Volume fraction] 43.7 % Normal 36.0-48.0 [facility] Comment on above: Performed By: #### C BC #### [facility] [address] [place] [address] Dr. Suzi Pal Hemoglobin (Bld) [Mass/Vol] 14.5 g/dL Normal 12.0-16.0 [facility] Comment on above: Performed By: #### C BC #### [facility] [address] [place] [address] Dr. Suzi Pal IG # 0.03 10e3/ul Normal 0.00-0.03 [facility] Comment on above: Performed By: #### C BC #### [facility] [address] [place] [address] Dr. Suzi Pal IG % 0.3 % Normal 0.0-0.5 [facility] Comment on above: Performed By: #### C BC #### [facility] [address] [place] [address] Dr. Suzi Pal LYMPH # 4.6 103/ul Critically high 1.2-3.8 [facility] Comment on above: Performed By: #### C BC #### [facility] [address] [place] [address] Dr. Suzi Pal Lymphocytes/100 WBC (Bld) 44.0 % Normal 20.5-60.0 [facility] Comment on above: Performed By: #### C BC #### [facility] [address] [place] [address] Dr. Suzi Pal MANUAL DIFF REQ NO Normal [facility] Comment on above: Performed By: #### C BC #### [facility] [address] [place] [address] Dr. Suzi Pal MCH (RBC) [Entitic mass] 32.4 pg Normal 26.7-34.0 [facility] Comment on above: Performed By: #### C BC #### [facility] [address] [place] [address] Dr. Suzi Pal MCHC (RBC) [Mass/Vol] 33.2 g/dL Normal 29.9-35.2 [facility] Comment on above: Performed By: #### C BC #### [facility] [address] [place] [address] Dr. Suzi Pal MCV (RBC) [Entitic vol] 97.8 fL Normal 81.0-99.0 [facility] Comment on above: Performed By: #### C BC #### [facility] [address] [place] [address] Dr. Suzi Pal MONO # 1.1 103/ul Critically high 0.3-0.8 [facility] Comment on above: Performed By: #### C BC #### [facility] [address] [place] [address] Dr. Suzi Pal Monocytes/100 WBC (Bld) 10.5 % Normal 1.7-12.0 [facility] Comment on above: Performed By: #### C BC #### [facility] [address] [place] [address] Dr. Suzi Pal NEUT # 4.3 103/ul Normal 1.4-6.5 [facility] Comment on above: Performed By: #### C BC #### [facility] [address] [place] [address] Dr. Suzi Pal Neutrophils/100 WBC (Bld) 41.5 % Critically low 43.0-75.0 [facility] Comment on above: Performed By: #### C BC #### [facility] [address] [place] [address] Dr. Suzi Pal Platelet mean volume (Bld) [Entitic vol] 8.9 fL Critically low 9.5-13.5 [facility] Comment on above: Performed By: #### C BC #### [facility] [address] [place] [address] Dr. uSzi Pal PLT 414 103/ul Normal 150-450 [facility] Comment on above: Performed By: #### C BC #### [facility] [address] [place] [address] Dr. Suzi Pal RBC 4.47 106/ul Normal 4.20-5.40 [facility] Comment on above: Performed By: #### C BC #### [facility] [address] [place] [address] Dr. Suzi Pal WBC 10.4 103/ul Normal 4.0-11.0 [facility] Comment on above: Performed By: #### C BC #### [facility] [address] [place] [address] Dr. Suzi Pal PROF 14(COMP METB)on 022 Albumin [Mass/Vol] 3.8 g/dL Normal 3.4-5.[address] [facility] Comment on above: Performed By: #### T 4, CMP, TSH #### [facility] [address] [place] [address] Dr. Suzi Pal Albumin/Globulin [Mass ratio] 0.9 {ratio} Normal [facility] Comment on above: Performed By: #### T 4, CMP, TSH #### [facility] [address] [place] [address] Dr. Suzi Pal ALP [Catalytic activity/Vol] 68 U/L Normal 46-116 [facility] Comment on above: Performed By: #### T 4, CMP, TSH #### [facility] [address] [address] [address] Suzi Pal ALT [Catalytic activity/Vol] 23 U/L Normal 14-59 [facility] Comment on above: Performed By: #### T 4, CMP, TSH #### [facility] [address] [address] [address] Suiz Pal Anion gap [Moles/Vol] 11.0 mmol/L Normal [facility] Comment on above: Performed By: #### T 4, CMP, TSH #### [facility] [address] [address] [address] Suzi Pal AST [Catalytic activity/Vol] 16 U/L Normal 15-37 [facility] Comment on above: Performed By: #### T 4, CMP, TSH #### [facility] [address] [place] [address] Dr. Suzi Pal Bilirubin [Mass/Vol] 0.5 mg/dL Normal 0.2-1.0 [facility] Comment on above: Performed By: #### T 4, CMP, TSH #### [facility] [address] [place] [address] Dr. Suzi Pal Calcium [Mass/Vol] 9.6 mg/dL Normal 8.5-10.[address] [facility] Comment on above: Performed By: #### T 4, CMP, TSH #### [facility] [address] [address] [address] uSzi Pal Chloride [Moles/Vol] 103 mmol/L Normal 98-107 [facility] Comment on above: Performed By: #### T 4, CMP, TSH #### [facility] [address] [place] [address] Dr. Suzi Pal CO2 [Moles/Vol] 31.8 mmol/L Normal 21.0-32.0 [facility] Comment on above: Performed By: #### T 4, CMP, TSH #### [facility] [address] [place] [address] Dr. Suzi Pal Creatinine [Mass/Vol] 0.75 mg/dL Normal 0.55-1.02 [facility] Comment on above: Performed By: #### T 4, CMP, TSH #### [facility] [address] [address] [address] Suzi Pal EGFR-AF TONGAN >60 Normal >=60 [facility] Comment on above: Performed By: #### T 4, CMP, TSH #### [facility] [address] [address] [address] Suzi Pal EGFR-NON AF TONGAN >60 Normal >=60 [facility] Comment on above: Performed By: #### T 4, CMP, TSH #### [facility] [address] [address] [address] Suzi Pal Globulin (S) [Mass/Vol] 4.0 g/dL Normal [facility] Comment on above: Performed By: #### T 4, CMP, TSH #### [facility] [address] [address] [address] Suzi Pal Glucose [Mass/Vol] 88 mg/dL Normal 74-[address] [facility] Comment on above: Performed By: #### T 4, CMP, TSH #### [facility] [address] [address] [address] Szui Pal Potassium [Moles/Vol] 3.8 mmol/L Normal 3.5-5.1 [facility] Comment on above: Performed By: #### T 4, CMP, TSH #### [facility] [address] [address] [address] Suzi Pal Protein [Mass/Vol] 7.8 g/dL Normal 6.4-8.2 [facility] Comment on above: Performed By: #### T 4, CMP, TSH #### [facility] [address] [address] [address] Suzi Pal Sodium [Moles/Vol] 142 mmol/L Normal 136-145 [facility] Comment on above: Performed By: #### T 4, CMP, TSH #### [facility] [address] [address] [address] Suzi Pal Urea nitrogen [Mass/Vol] 15.0 mg/dL Normal 7.0-18.0 [facility] Comment on above: Performed By: #### T 4, CMP, TSH #### [facility] [address] [address] [address] Suzi Pal Urea nitrogen/Creatinine [Mass ratio] 20.0 mg/mg Normal [facility] Comment on above: Performed By: #### T 4, CMP, TSH #### [facility] [address] [address] [address] Suzi Pal T4on 06-08-2022 T4 [Mass/Vol] 7.80 ug/dL Normal 4.80-13.[address] [facility] Comment on above: Performed By: #### T 4, CMP, TSH #### [facility] [address] [place] [address] Dr. Suzi Pal TSHon 06-08-2022 TSH 2.655 uIU/mL Normal 0.358-3.[address] [facility] Comment on above: Performed By: #### T 4, CMP, TSH #### [facility] [address] [place] [address] Dr. Suzi Pal Vital Signs Date Time Vital Sign Value Performing Clinician Brianda diaz 05-08-2025 10:47-0400 Body height 161.29 cm Son Loza MD Work Phone: [facility] 05-08-2025 10:47-0400 Body mass index (BMI) [Ratio] 28.2 kg/m2 Son Loza MD Work Phone: [facility] 05-08-2025 10:47-0400 Body temperature 95.9 [degF] Son Loza MD Work Phone: [facility] 05-08-2025 10:47-0400 Body weight 73.48 kg Sno Loza MD Work Phone: [facility] 05-08-2025 10:47-0400 Diastolic blood pressure 78 mm[Hg] Son Loza MD Work Phone: [facility] 05-08-2025 10:47-0400 Heart rate 82 /min Son Loza MD Work Phone: [facility] 05-08-2025 10:47-0400 Respiratory rate 20 /min Son Loza MD Work Phone: [facility] 05-08-2025 10:47-0400 SaO2% (BldA) [Mass fraction] 97 % Son Loza MD Work Phone: [facility] 05-08-2025 10:47-0400 Systolic blood pressure 144 mm[Hg] Son Loza MD Work Phone: [facility] 05-02-2024 10:44-0400 Body height 160 cm Aminta Randall MD Work Phone: [facility] 05-02-2024 10:44-0400 Body mass index (BMI) [Ratio] 28.31 kg/m2 Aminta Randall MD Work Phone: [facility] 05-02-2024 10:44-0400 Body temperature 97.7 [degF] Aminta Randall MD Work Phone: [facility] 05-02-2024 10:44-0400 Body weight 72.5 kg Aminta Randall MD Work Phone: [facility] 05-02-2024 10:44-0400 Diastolic blood pressure 80 mm[Hg] Aminta Randall MD Work Phone: [facility] 05-02-2024 10:44-0400 Heart rate 106 /min Aminta Randall MD Work Phone: [facility] 05-02-2024 10:44-0400 Respiratory rate 16 /min Aminta Randall MD Work Phone: [facility] 05-02-2024 10:44-0400 SaO2% (BldA) [Mass fraction] 94 % Aminta Randall MD Work Phone: [facility] 05-02-2024 10:44-0400 Systolic blood pressure 134 mm[Hg] Aminta Randall MD Work Phone: [facility] Encounters Encounter Date Encounter Type Care Provider Facility Start: 05-08-2025 Patient encounter procedure Son Loza MD Work Phone: [facility] Start: 05-08-2025 End: 05-08-2025 ambulatory Son Loza MD Work Phone: [facility] Work Phone: Start: 05-08-2025 End: 05-08-2025 Patient encounter procedure Son Loza MD -[facility] Work Phone: Start: 06-24-2024 End: 06-24-2024 Orders Only Bonita Pugh [employer] Work Phone: [facility] Comment on above: Screening for colon cancer (Primary Dx) Start: 05-02-2024 End: 05-02-2024 Patient encounter procedure Aminta Randall MD Work Phone: Hematology/Oncology Start: 05-02-2024 End: 05-02-2024 ambulatory Aminta Randall MD Work Phone: Hematology/Oncology Comment on above: Leukocytosis, unspec ified type (Primary Dx); Postsplenectomy thrombocytosis; History of lymphoma Start: 03-21-2024 End: 03-21-2024 ambulatory Jose Mcadams [facility] Work Phone: Start: 03-21-2024 End: 03-21-2024 Departed Referred DPM Jose Monge Work Phone: [facility] Start: 02-26-2024 Patient encounter procedure Bonita Pugh [employer]EL FIL[employer] INSPECTOR Work Phone: [facility] Start: 02-26-2024 End: 02-26-2024 ambulatory SHAIKH MARIA GD Not Available Start: 01-17-2024 End: 01-17-2024 ambulatory CARREON FAWWAD Not Available Start: 12-11-2023 End: 12-11-2023 ambulatory Guillermo Leroy [facility] Work Phone: Start: 12-11-2023 End: 12-11-2023 Departed Referred MD Guillermo Leroy Work Phone: [facility] Start: 11-13-2023 End: 11-13-2023 ambulatory CARREON [...] Treatment Date Care Activity Detail Author Start: 05-08-2025 Patient referral [facility] Work Phone: Start: 02-25-2025 Medicare Annual Well ness (AWV) Medicare Annual Wellness (AWV) [facility] Start: 02-05-2025 End: 02-05-2025 Patient encounter procedure 02/05/2025 10:00 AM EDT Office Visit [facility] [address] [place] [address] Bonita Pugh NP [address] [place] [address] [facility] Start: 08-21-2024 Pneumococcal Vaccine : 65+ Years (1 of 2 - PCV) Pneumococcal Vaccine: 65+ Years (1 of 2 - PCV) [facility] Comment on above: Postponed from 01/21 (Patient Does Not Have Time) Start: 06-24-2024 End: 06-24-2025 Noninvasive colorectal cancer DNA and occult blood screening [Presence] in Stool Cologuard colon cancer screening Lab Routine Screening for colon cancer Expected: 06/24/2024 (Approximate), Expires: 06/24/2025 [facility] Work Phone: Comment on above: Expected: 06/24/2024 (Approximate), Expires: 06/24/2025 Start: 04-21-2024 Influenza vaccination Influenza Vacc ine (#1) [facility] Start: 08-21-2023 Advance Directive Discussion Advance Directive Discussion [facility] Start: 05-06-2016 Diabetes Screening Diabetes Screenin g [facility] Start: 01-21-2009 Screening for osteoporosis Bone Density Screening [facility] Start: 2004 RSV Vaccine (1 - 1-d ose 60+ series) RSV Vaccine (1 - 1-dose 60+ series) [facility] Start: 01-21-1963 Shingrix Vaccine (1 of 2) Shingrix Vaccine (1 of 2) [facility] Start: 01-21-1963 Urine microalbumin profile DTaP,Tdap,Td Vaccine (1 - Tdap) [facility] Start: 01-21-1962 Anxiety Screening Anxiety Screening [facility] Start: 01-21-1962 Depression Screening Depression Scre ening [facility] Start: 01-21-1950 Pneumococcal Vaccine : 65+ (1 of 2 - PCV) Pneumococcal Vaccine: 65+ (1 of 2 - PCV) [facility] Start: 01-21-1949 Covid-19 Vaccine (#1) Covid-19 Vacci ne (#1) [facility] Comprehensive metabo lic 2000 panel - Serum or Plasma [facility] Patient referral [facility] Work Phone: [facility] Immunizations Immunization Date Immunization Notes Care Provider Augustin cervantes 05-29-2024 influenza, seasonal, injectable Bonita Pugh NP Work Phone: [facility] Payers Date Payer Category Payer Self-pay [id number] 2023 Medicare DEVOTED MEDICARE [facility]ED [facility] [id number] 2023-Present [phone] [address] RODDY GONZALEZ [id number] [facility] [id number] 2023 Medicare (Managed Care) DEVOTED HEALTH [id number] 2023 Unknown [id number] 1960 Unknown [id number] 1945 Unknown [id number]. 2.593 1945 Unknown [id number] [id number]. 2.593 1945 Unknown [id number] [id number]. 2.1259 1945 Unknown [id number] 2.16.840.1.441488.3.579. 2.1259 1945 Unknown [id number] 2.16.840.1.894242.3.579. 2.1259 1945 Unknown [id number] 2.16.840.1.827684.3.579. 2.1259 1945 Unknown [id number] 2.16.840.1.517701.3.579. 2.1259 1945 Unknown [id number] [id number]. 2.1259 Medicare [employer] MCR PFFS OP [id number] Unknown [id number] [id number]. 2.531 Unknown [id number] [id number]. 2.531 Social History Date Type Detail Facility Tobacco smoking status NHIS Unknown if ever smoked [facility] Work Phone: Start: 1945 Sex Assigned At Female F [facility] Start: 05-02-2024 End: 05-08-2025 Tobacco smoking status NHIS Never smoked tobacco [facility] Start: 10-30-2023 End: 05-02-2024 Tobacco use and exposure Smokeless tobacco non-user [facility] Start: 05-02-2024 Alcoholic beverage intake Current non-drinker of alcohol (finding) [facility] Start: 02-26-2024 End: 05-02-2024 History of Social function [facility] Start: 02-26-2024 End: 05-02-2024 Tobacco use panel [facility] National Score (1-100), lower number is lower risk 93 [facility] Start: 1945 Sex assigned at [facility] Start: 02-26-2024 Alcoholic beverage intake Lifetime non-drinker (finding) [facility] Sex Female (finding) [facility] NEGATED: Highlighted rowStart: NINF History of tobacco use Passive smoker [facility] History of Present illness Narrative 06-24-2024 Bonita Pugh NP - 06/24/2024 2:37 PM EST Note Date & Type Note Facility 06-24-2024 History of Presen t illness Narrative col documented in this encounter [facility] Progress note 05-01-2024 Note Date & Type Note Facility 05-01-2024 Note HNO ID: [id number] Author: AMINTA RANDALL MD Service: ? Author Type: Physician Type: Progress Notes Filed: 05/02/2024 20:14 Note Text: PATIENT NAME: Genesis Darby DATE: 05/02/2024 PRIMARY CARE PHYSICIAN: Bonita Pugh APRN OTHER PHYSICIANS: Dr. Guillermo Leroy ([facility] Hematology) HPI: This is an 79 year [...] soft tissue swelling, and atrophy. PATHOLOGY: 12/13/2023 Nicolasa niurka eripheral blood flow cytometry ([facility]) Mature granulocytes show lack of CD16 expression. Lymphocytosis. No other significant immunophenotypic abnormality detected. 08/28/2009 Splenectomy ([facility]) Findings consistent with large B- (more content not included)... [facility] History of Present illness Narrative 05-01-2024 Aminta Randall MD - 05/01/2024 5:44 PM EDT Note Date & Type Note Facility 05-01-2024 History of Presen t illness Narrative PATIENT NAME: Genesis Darby DATE: 05/02/2024 PRIMARY CARE PHYSICIAN: Bonita Pugh APRN OTHER PHYSICIANS: Dr. Guillermo Leroy ([facility]) HPI: This is an 79 year [...] soft tissue swelling, and atrophy. PATHOLOGY: 12/13/2023 Nicolasa bah eripheral blood flow cytometry ([facility]) Mature granulocytes show lack of CD16 expression. Lymphocytosis. No other significant immunophenotypic abnormality detected. 08/28/2009 Splenectomy ([facility]) Findings consistent with large B-cell lymphoma LABS: [...] ratio 1.83 RADIOLOGY/OTHER STUDIES: 04/19/2023 CT abdomen/pelvis ([facility]) No acute abnormality of the abdomen or [...] Bonita Pugh APRN documented in this encounter [facility] Evaluation note Note Date & Type Note Facility Evaluation note No assessment information availa [facility] Work Phone: Evaluation note Note Date & Type Note Facility Evaluation note Diagnosis Leukocytosis, unspecified type- Primary Postsplenectomy thrombocytosis History of lymphoma Personal history of other lymphatic and hematopoietic neoplasm documented in this encounter [facility] Evaluation note Note Date & Type Note Facility Evaluation note Diagnosis Diffuse large B-cell lymphoma, unspecified body region (CMS/HCC)- Primary Gastroesophageal reflux disease without esophagitis Esophageal reflux URTI (acute upper respiratory infection)- Primary Acute upper respiratory infections of unspecified site Medicare annual wellness visit, subsequent- Primary Screening for colon cancer- Primary Special screening for malignant neoplasms, colon documented in this encounter [facility] Evaluation note Note Date & Type Note Facility Evaluation note Diagnosis Onset Date Resolution Medicare annual wellness visit, subsequent acute May 08, 2025 9:52am [facility] Work Phone: Evaluation note Note Date & Type Note Facility Evaluation note Diagnosis Onset Date Resolution Lesion of nostril acute Septemb 2024 9:52am Medicare annual wellness visit, subsequent acute May 08, 2025 9:52am [facility] Work Phone: Hospital Discharge instructions Note Date & Type Note Facility Hospital Discharge instructions Ambulatory OrdersReferral to ENT Time Frame: 05/08/25, Location: None Selected [facility] Work Phone: Reason for referral (narrative) Note Date & Type Note Facility Reason for referral (narrative) No reason for referral information available [facility] Work Phone: Summary Purpose Family History No Family History Records FoundNo Family History Records FoundNo Family History Records FoundNo Family History Records Found Advance Directives Advance Directive Response Recorded Date/ Time Advance Directives No April 06, 2021 2:10pm Chief Complaint and Reason for Visit Reason for Visit Admit Date Lesion of nostril May 08, 2025 9:52am Medicare annual wellness visit, subseque nt May 08, 2025 9:52am Reason for Visit Admit Date Medicare annual wellness visit, subseque nt May 08, 2025 9:52am Additional Source Comments INFORMATION SOURCE (unrecogn ized section and content) DATE CREATED AUTHOR 07/10/2022 [facility] DATE CREATED AUTHOR AUTHOR'S ORGANIZ ATION 02/26/2024 [facility] EPIC DATE CREATED AUTHOR AUTHOR'S ORGANIZ ATION 03/29/2024 [facility] DATE CREATED AUTHOR AUTHOR'S ORGANIZ ATION 05/04/2024 [facility] Care Teams (unrecognized sec tion and content) Team Status: Inactive Member Role Status Dates Guillermo Leroy MD Attending Provider Active St art: December 11, 2023 End: December 11, 2023 Team Status: Inactive Member Role Status Dates Jose Monge DPM MS Attending Provider Active Start: March 21, 2024 End: March 21, 2024 Ad Compositor Relationship Specialty Start Date End Date Bonita Pugh APRN [address] [place] [address] [place] [address] PCP - General Family Medicine 04/15/24 Ad Compositor Relationship Specialty Start Date End Date Shaikh Sales MD [address] [place] [phone] PCP - Devoted 08/21/23 Son Loza MD [address] [place] [phone] PCP - General Family Medicine 06/24/24 Bonita Pugh NP [address] [place] [address] Nurse Practitioner Family Medicine 06/24/24 Team Status: Active Member Role Status Dates Son Loza MD Primary Care Provider Active Team Status: Inactive Member Role Status Dates Son Loza MD Primary Care Provider Active S tart: May 08, 2025 End: May 08, 2025 Son Loza MD Attending Provider Active Star t: May 08, 2025 End: May 08, 2025 Goals (unrecognized section and content) Goals may be documented in a n alternate sectionGoals may be documented in an alternate sectionGoals may be documented in an alternate sectionGoals may be documented in an alternate section Source Comments (unrecognize d section and content) In the event this informatio n is protected by the Federal Confidentiality of Alcohol and Drug Abuse Patient Records regulations: The Federal rules restrict any use of the information to criminally investigate or prosecute any alcohol or drug abuse patient.[facility] Reason for Visit (unrecogniz ed section and [...] BE BASED ON THE PRIMARY CLINICAL RECORDS. [facility]. provides no warranty or guarantee of the accuracy or completeness of information in this document.
[2025-05-09 14:10] LABS: Hematocrit 41.6 % (36.0-48.0); Hemoglobin 14.2 g/dL (12.0-16.0); Immature Granulocytes Abs Auto 0.04 10^3/uL (0.00-0.03); Immature Granulocytes Pct Auto 0.3 % (0.0-0.5); Lymphocytes Absolute Auto 4.9 10^3/uL (1.2-3.8); Mean Corpuscular HGB Conc 34.1 g/dL (29.9-35.2); Mean Corpuscular Hemoglobin 33.4 pg (26.7-34.0); Mean Corpuscular Volume 97.9 fL (81.0-99.0); Platelet Count 431 10^3/uL (150-450); Red Blood Count 4.25 10^6/uL (4.20-5.40); White Blood Count 11.8 10^3/uL (4.0-11.0)
[2025-05-09 14:16] LABS: Alanine Aminotransferase 23 U/L (14-59); Albumin Globulin Ratio 0.9; Albumin Level 3.8 g/dL (3.4-5.0); Alkaline Phosphatase 75 U/L (46-116); Anion Gap 13.1; Aspartate Amino Transferase 20 U/L (15-37); Blood Urea Nitrogen 13.0 mg/dL (7.0-18.0); Calcium 9.3 mg/dL (8.5-10.1); Carbon Dioxide 29.8 mmol/L (21.0-32.0); Chloride 105 mmol/L (98-107); Cholesterol 274 mg/dL (<=200); Estimated GFR (African America >60 (>=60 mL/min/1.73m^2); Estimated GFR (Non-African Ame >60 (>=60 mL/min/1.73m^2); Globulin 4.1 g/dL; Glucose 103 mg/dL (74-106); HDL Cholesterol 45 mg/dL (40-60); Potassium 3.9 mmol/L (3.5-5.1); Sodium 144 mmol/L (136-145); Thyroid Stimulating Hormone 1.575 uIU/mL (0.358-3.740); Total Protein 7.9 g/dL (6.4-8.2); Triglycerides 413 mg/dL (<=150); VLDL CHOLESTEROL 82.6 mg/dL
== END 2025-05-09 13:27 | disposition home or self-care (01) ==
PROVIDERS: PCP Family Medicine; Visit Provider Family Medicine
DX: Z79.899 Other long term (current) drug therapy (principal); E78.5 Hyperlipidemia, unspecified; R53.83 Other fatigue
CPT/HCPCS: 36415; 80053; 80061; 83721; 84443; 85025

== ENCOUNTER 2025-07-10 11:22 | Outpatient (OUT) | payer MEDICARE, SELFPAY ==
--- OUTSIDE RECORDS SUMMARY | 2024-02-09 05:00 | XMS_ITS ---
Author Organization [facility] [place] Address [address] [place] [address] Care Team Providers Care Crushing Mill Operator Name Role Phone Shaikh Sales MD Primary Care Provider Dinaa Aishwarya Mckeon Unavailable [phone] REASON FOR VISIT MidLevel Visit Encounters Encounter Location Date Provider Diagnosis [facility] [address] [place] [phone] 02/09/2024 Aishwarya Flannery Plan Of Treatment No Information Progress Notes * Genesis DARBY ADOB:1945 (80 yo F)Acc No.[id number]:02/09/2024 UNLOCKED PROGRESS NOTE Progress Notes Patient: Genesis ENCARNACION :?Aishwarya Flannery SAMMIEDOB:1945???Age:79 Y ???Sex:FemaleDate:02/09/2024hone:[phone]:[address] [place] [phone]:Shaikh Mónica MD Subjective: * Chief Complaints: * 1 . MidLevel Visit. * Medical History: Objective: * Vitals: Assessment: Plan: * Treatment: * * Electronic signature of Aishwarya Flannery NP, EMBEDDED SYSTEMS DEVELOPER.HAND FUR [id number] on 07/10/2025 at 11:25 AM ESTSign off status: PendingVisit Status:?CANC (Cancelled) * Provider: Luigi Flannery CNP Date: 0 02/09/2024 Generated for Printing/Faxing/eTransmitting on:?07/10/2025 11:25 AM EST
--- OUTSIDE RECORDS SUMMARY | 2024-02-13 09:15 | XMS_ITS ---
Author Organization The [facility] [place] Address [address] [place] [address] Care Team Providers Care University Administrator Name Role Phone Mónica BEAVERS, Primary Care Provider Unavaila Barbie Franks Unavailable [phone] REASON FOR VISIT MD Encounters Encounter Location Date Provider Diagnosis [facility] [address] [place] [phone] 02/13/2024 Barbie Leroy Plan Of Treatment No Information Progress Notes * Genesis DARBY ADOB:1945 (80 yo F)Acc No.[id number]:02/13/2024 UNLOCKED PROGRESS NOTE Progress Notes Patient: Genesis ENCARNACION :?Barbie Leroy M.D.:1945???Age:79 Y ???Sex:FemaleDate:4Phone:[phone]:[address] [place] [phone]:Shaikh Mónica MD Subjective: * Chief Complaints: * 1 . MD. * Medical History: Objective: * Vitals: Assessment: Plan: * Treatment: * * Electronic signature of Barbie Leroy MD, [id number] on 07/10/2025 at 11:24 AM ESTSign off status: PendingVisit Status:?CONFPHONE (Voice) * Provider: Rebecca Leroy M.D. Date: 0 02/13/2024 Generated for Printing/Faxing/eTransmitting on:?07/10/2025 11:24 AM EST
--- OUTSIDE RECORDS SUMMARY | 2024-03-21 03:15 | XMS_ITS ---
Author Organization [facility] [place] Address [address] [place] [address] Care Team Providers Care Corporate Compliance Manager Name Role Phone Mónica BEAVERS, Primary Care Provider Jose Bautista Unavailable [phone] REASON FOR VISIT partial amputation RT 2nd toe Encounters Encounter Location Date Provider Diagnosis [facility] OUT[facility]IENT [address] [place] [phone] 03/21/2024 Jose Monge Plan Of Treatment No Information Progress Notes * Genesis DARBY ADOB:1945 (80 yo F)Acc No.[id number]:03/21/2024 UNLOCKED PROGRESS NOTE Patient:?Genesis DARBY :?Jose Monge DPM, MSDOB:1945???Age: 79 Y???Sex:FemaleDate:4Phone:[phone]:[address] [place] [phone]:Hellen Cao Out:12:25 PM EST * * Electronic signature of Jose Monge DPM on 07/10/2025 at 11:25 AM ESTSign off status: PendingVisit Status:?CHK (Check Out) * Provider: Nicolasa Monge DPM, MS Date: 0 03/21/2024 Generated for Printing/Faxing/eTransmitting on:?07/10/2025 11:25 AM EST
--- OUTSIDE RECORDS SUMMARY | 2024-06-18 04:30 | XMS_ITS ---
Author Organization [facility] [place] Address [address] [place] [address] Care Team Providers Care Operators School Manager Name Role Phone Mónica BEAVERS, Primary Care Provider Unavaila Barbie Franks Unavailable [phone] REASON FOR VISIT MD Encounters Encounter Location Date Provider Diagnosis [facility] Oncology [address] [place] [id number] 06/18/2024 Barbie Leroy Plan Of Treatment No Information Progress Notes * Genesis DARBY ADOB:1945 (80 yo F)Acc No.[id number]:06/18/2024 UNLOCKED PROGRESS NOTE Progress Notes Patient: Genesis ENCARNACION :?Barbie Leroy M.D.:1945???Age:79 Y ???Sex:FemaleDate:06/18/2024hone:[phone]:[address] [place] [id number]:Shaikh Mónica MD Subjective: * Chief Complaints: * 1 . MD. * Medical History: Objective: * Vitals: Assessment: Plan: * Treatment: * * Electronic signature of Barbie Leroy MD, [id number] on 07/10/2025 at 11:25 AM ESTSign off status: PendingVisit Status:?CANC (Cancelled) * Provider: Rebecca Leroy M.D. Date: Generated for Printing/Faxing/eTransmitting on:?07/10/2025 11:25 AM EST
--- OUTSIDE RECORDS SUMMARY | 2025-07-10 11:24 | XMS_ITS | Clinical Summary ---
Author Organization [facility] Healthcare Address [address] [place] [address] Care Team Providers Care Irrigation Pump Installer Name Role Phone Son Loza MD Primary Care Provider [phone] Allergies No known active allergies Medications MedicationSigDispense QuantityRefillsLast FilledStart DateEnd DateStatus omeprazole OTC (PriLOSEC OTC) 20 MG EC tablet Take 20 mg by mouth in the morning. Take before meals. Do not crush, chew, or split.Active aspirin 81 MG EC tablet Take 81 mg by mouth DailyActive Zinc Sulfate (ZINC 15 PO) Take by mouthActive Ascorbic Acid (VITAMIN C ER PO) Take by mouthActive Multiple Vitamin (multivitamin) tablet Take 1 tablet by mouth DailyActive Inulin (FIBER CHOICE PO) Take by mouthActive Docusate Calcium (STOOL SOFTENER PO) Take by mouthActive loratadine (Claritin) 10 MG tablet Indications:URTI (acute upper respiratory infection)Take 1 tablet (10 mg) by mouth Daily 30 tablet 4Active Multiple Vitamins-Minerals (PRESERVISION AREDS 2 PO) Take by mouthActive mupirocin (Bactroban) 2 % ointment Indications:Chronic rhinitisApply to the left side of the nose twice daily for one month 15 g 5Active albuterol HFA 90 mcg/act inhaler Indications:URTI (acute upper respiratory infection)Inhale 2 puffs every 4 (four) hours if needed for wheezing 8.5 g Discontinued(Therapy completed) oxymetazoline (Afrin Nasal Beatty) 0.05 % nasal spray Indications:URTI (acute upper respiratory infection)Administer 2 sprays into each nostril every 12 (twelve) hours if needed for congestion for up to 2 days Do not use for more than 3 days. 30 mL Discontinued(Therapy completed) Active Problems ProblemNoted DateDiagnosed DateLesion of ssnzrue6205/19/2025[facility], iynxzahofn24/08/2024 Assessment & Plan (02/26/2024 10:32 AM EDT): Patient here for Medicare Wellness. Reviewed medical, surgical and social history. Reviewed medication list. Patient screened for depression, fall risk, cognitive impairment. Patient provided appropriate education on chronic medical conditions, prescription medications. Patient's health related questions and concerns addressed and answered. Pain of toe of right foot01/17/2024Sprain of left ankle01/17/2024URTI (acute upper respiratory infection)11/13/2023 Assessment & Plan (11/13/2023 3:15 PM EDT): Patient was seen previously for URTI and prescribed Augmentin for bilateral OM. She reports feelingslightly better for a few days but then her symptoms started to worse. She is unable to sleep due to cough at night. She is struggling with post nasal drip. Has mucus and sore throat. No fever or SOB Exam concerning for possible RL PNA. Will call in oral Levaquin along with prednisone, antihistamines, afrin nasal spray and cough suppressent. I will also order ventolin as needed to help improve air movement. Ordered XR. Lffhdprvrgh30/11/2024Non-recurrent acute suppurative otitis media of both ears without spontaneous rupture of tympanic mayzhbjbm45/11/2024iffuse large B-cell lymphoma, unspecified body doxadx9008/22/2023 Assessment & Plan (08/22/2023 2:13 PM EST): S/p rx, in remission. No need for radiographic surveillance. Following Oncology now. Gastroesophageal reflux disease without tbbwbgxevpy62/02/2024 Assessment & Plan (08/22/2023 2:12 PM EST): Symptoms well controlled with Omeprazole. Malignant lymphoma of extranodal and solid organ sites04/08/2014 Encounters DateTypeDepartmentCare XnwzNldoduxcftq87/29/2025 3:20 PM EDTOffice Visit [facility] [facility] [address] [facility] [address] [place] [address] Nu Suárez MD Chronic rhinitis (Primary Dx)06/18/2025amboo flowsheet [facility] [facility] [address] [place] [address] [place] [address] Nu Suárez MD 06/18/20254134Vbbbcz91/30/2025 1:40 PM EDTOffice Visit [facility] [place] [facility] [address] [facility] [address] [place] [address] Nu Suárez MD Chronic rhinitis (Primary Dx)05/20/2025amboo flowsheet [facility] [place] [facility] [address] [facility] [address] [place] [address] Nu Suárez MD 05/20/2025Travelfrom Last 3 Months Immunizations ImmunizationAdministration DatesNext DueInfluenza, seasonal, injectable 05/29/2024 Family History Medical HistoryRelationNameCommentsColon cancerFatherRectal cancerFatherStroke FatherCancerMotherHeart diseaseMotherHypertensionMotherBreast cancerSibling RelationNameStatusCommentsFatherDeceasedMotherDeceasedSibling Social History Tobacco UseTypesPacks/DayYears UsedDateSmoking Tobacco: NeverPassive Smoke Exposure: NeverSmokeless Tobacco: Never Tobacco Cessation:Counseling Given: No Alcohol UseStandard Drinks/WeekCommentsNever0 (1 standard drink = 0.6 oz pure alcohol)PHQ-2AnswerDate RecordedPatient Health Questionnaire-2 Uiwfa582 CommentsUnknownSex and Gender InformationValueDate RecordedSex Assigned at BirthNot on fileLegal BthFvrirw88/15/2023 6:56 PM EDTGender IdentityNot on fileSexual OrientationNot on file Last Filed Vital Signs Vital SignReadingTime TakenCommentsBlood Caqhcref368/7606/18/2025 3:07 PM EDT Dzuzn361006/18/2025 3:07 PM SJBQyschyfzbjl54.6 ??C (97.9 ??F)02/26/2024 9:56 AM EDTRespiratory Rate--Oxygen Mxhxfmvici68%08/22/2023 2:03 PM ESTInhaled Oxygen Concentration--Opyfzg86.5 kg (162 lb)06/18/2025 3:07 PM YPAMhwbxd141 cm (5' 3 ) 06/18/2025 3:07 PM EDTBody Mass Index28. 3:07 PM EDT Plan of Treatment Health MaintenanceDue DateLast DoneCommentsPneumococcal Vaccine: 65+ Years (1 of 1 - PCV)01/21/1994COVID-19 Vaccine ( - 2024- season), 11/16/2020, 10/16/2020Influenza SpunwkoCznsrhdph04/15/2025, 05/29/2024, 05/30/2023, Additional history exists Insurance Care Teams Team MemberRelationshipSpecialtyStart DateEnd Date Son Loza MD [address] [place] [address] PCP - GeneralFamily Medicine05/14/25
--- OUTSIDE RECORDS SUMMARY | 2025-07-10 11:24 | XMS_ITS | Patient Health Record ---
Author Organization [facility] [place] Address [address] [place] [address] Care Team Providers Care Director Water And Waste Services Name Role Phone Mónica BEAVERS, [facility] Primary Care Provider Unavaila ble Allergies No Known Allergies Reason For Referral No Information Medications Medication SIG (Take, Route, Frequency, Duration) Notes Start Date End Date Status Cephalexin 500 MG 1 capsule Orally every 12 hour s; Duration: 7 days 03/21/2024Not-TakingOndansetron HCl 4 MG1 tablet Orally every 6 hours; Duration: 5 days03/21/2024Not-Taking Social History Tobacco Use: Social History Observation Description Date Details (start date - stop date) Never Smoker NA - NA Tobacco Control (Standard) Question Answer Notes Tobacco use: Nonsmoker Problems Problem Type SNOMED Code ICD Code Onset Dates Problem Status W/U Status Risk Notes Problem Acquired hallux rigidus (9056477) Hallux rigidus, right foot (M20.21) ActiveconfirmedProblemAcquired hammer toe of right foot (8196027710480298)Other hammer toe(s) (acquired), right foot (M20.41)Activeconfirmed Plan Of Treatment Pending Test Test Name Order Date CBC AUTO DIFF 12/11/2023 CBC AUTO DIFF 02/05/2024 IMMUNOGLOBULIN E, TOTAL 12/11/2023 LDH 02/05/2024 PERIPHERAL SMEAR 12/11/2023 PROF 14(COMP METB) 12/11/2023 XR foot RT min 3V 03/22/2024 ECG 12 lead 03/11/2024 VANCE, PE and FLC, Serum 12/11/2023 Reticulocyte Pct Auto 12/11/2023 Comp panel: Leukemia/Lymphoma 12/11/2023 Insurance Providers Payer Name Payer Address Payer Phone Subscriber Number Group Number Insured Name Patient Relationship to Insured Coverage Start Date Coverage End Date [employer] [address] [place] [id number] [phone] [id number] Binu Esteban - patient is the insured Medical (General) History Medical History History ICD Code gastroesophageal reflux disease (GERD) varicose veinsSurgical History Surgery Date(Month/Year) 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
--- NOTE | 2025-07-10 11:25 | MM_ITS ---
Patient Name: ZACK DARBY MR#: [id number] : 1945 Exam Date: 07/10/2025 Ordering Doctor: DR KAROLINE MURPHY . RADIOLOGY REPORT PROCEDURE: MM TOMOSYNTHESIS SCREENING BI COMPARISON: MM TOMOSYNTHESIS SCREENING BI, 07/09/2024. MM TOMOSYNTHESIS SCREENING BI, 07/07/2023. MG MAMM SCREEN 3D JUAN MANUEL CAD, 07/06/2022. MG MAMM JUAN MANUEL SCRN W CAD DIG, 07/18/2007. INDICATIONS: Screening Calculator Name NCI Breast Cancer Risk Assessment Tool 5 Year Breast Cancer Risk 7.60% Lifetime Breast Cancer Risk 10.80% Personal Breast Cancer No Personal Ovarian Cancer No Treatments Spleenectomy, Chemo, Radiation Family Cancers Sister with breast cancer at age 45; Sister with breast cancer at age 77; Mother with multiple myeloma cancer at age ~72; Father with rectal cancer at age 62; Brother with prostate cancer at age 75; Brother with unknown cancer at age ~70. LOCATION: [facility] BREAST COMPOSITION: There are scattered areas of fibroglandular density. FINDINGS: DIAGNOSTIC CATEGORY 1--NEGATIVE. RIGHT BREAST: No significant suspicious finding. LEFT BREAST: No significant suspicious finding. RECOMMENDATIONS: ROUTINE MAMMOGRAM AND CLINICAL EVALUATION IN 12 MONTHS. Dictated by: Axel Stanford DO on 07/10/2025 at 15:23 Approved by: Axel Stanford DO on 07/10/2025 at 15:27
--- OUTSIDE RECORDS SUMMARY | 2025-07-10 11:25 | XMS_ITS | Clinical Summary ---
Author Organization [facility] Address [address], [address] [place] [address] Care Team Providers Care Career Resource Specialist Name Role Phone Josep, Pablo Baldwin DO Primary Care Provider [phone] Allergies Active AllergyReactionsCriticalityNoted MlihWvchnzgfNlavfJxajlymm00/17/2014 Adhesive ZbnsIxenTrq42/17/2014 Medications MedicationSigDispense QuantityRefillsLast FilledStart DateEnd DateStatus aspirin 81 MG chewable tablet Take 81 mg by mouth daily.Active docusate sodium (COLACE) 100 MG capsule Take 100 mg by mouth 2 times daily.Active Naproxen Sodium (ALEVE PO) Take by mouth.Active omeprazole (PRILOSEC) 10 MG capsule Take 10 mg by mouth dailyActive Cholecalciferol (VITAMIN D3) 2000 units CAPS Take 2,000 Units by mouth dailyActive Chromium-Cinnamon (CINNAMON PLUS CHROMIUM) 200-1000 MCG-MG CAPS Take 1,000 mg by mouth dailyActive Coenzyme Q10 (CO Q-10) 100 MG CAPS Take 100 mg by mouth dailyActive Multiple Vitamins-Minerals (MULTIPLE VITAMINS/WOMENS) TABS Take by mouthActive loratadine (CLARITIN) 10 MG capsule Take 10 mg by mouth dailyActive Active Problems ProblemNoted DateDiagnosed DateCervical zpknpdxeky82/11/2014Lymphoma malignant, large cell11/04/2013 Social History Tobacco UseTypesPacks/DayYears UsedDateSmoking Tobacco: NeverSmokeless Tobacco: NeverAlcohol UseStandard Drinks/WeekCommentsNot Asked0 (1 standard drink = 0.6 oz pure alcohol)CommentsNoSex and Gender InformationValueDate Recorded Sex Assigned at BirthNot on fileLegal UroXvndgy30/25/2014 3:09 PM ESTGender IdentityNot on fileSexual OrientationNot on file Last Filed Vital Signs Vital SignReadingTime TakenCommentsBlood Swksdcit855/6005 11:52 AM EDT Zvqve619901/10/2018 11:52 AM JGXZxisfoilhkn74.1 ??C (98.7 ??F)01/10/2018 11:52 AM EDTRespiratory Oqmf017801/10/2018 11:52 AM EDTOxygen Saturation--Inhaled Oxygen Concentration--Kdsaiu76.2 kg (168 lb)01/10/2018 11:52 AM WBALxiyqv181.6 cm (5' 4 )01/10/2018 11:52 AM EDTBody Mass Index28.8401/10/2018 11:52 AM EDT Plan of Treatment Not on file Insurance Care Teams Team MemberRelationshipSpecialtyStart DateEnd Date House, Pablo Baldwin DO [address] [place] [address] PCP - General10/25/13
--- OUTSIDE RECORDS SUMMARY | 2025-07-10 11:25 | XMS_ITS ---
Author Organization [facility] Address [address] [place] [address] Care Team Providers Care Asset Accountant Name Role Phone Bonita Bartlett APRN.FLORAL SPECIALIST Primary Car e Provider Active Problems ProblemNoted DateDiagnosed DateDiffuse large B cell ecpbqzfc12/12/2012 Current Treatment and Therapy Plans No current plan information found. Past Treatment and Therapy Plans Plan NameStart DateDiscontinue DateTreatment MedicationsDiscontinue ReasonPlan ProviderCyclesCENTRAL LINE FLUSH - Weekly x 24 weeksNo medications scheduled.Hoda Jacob APRN.CNP1 of 1 cycle startedCENTRAL LINE FLUSH - ONE TIMENo medications scheduled.Treatment Ankush Garber P1 of 1 cycle started
--- OUTSIDE RECORDS SUMMARY | 2025-07-10 11:25 | XMS_ITS | Clinical Summary ---
Author Organization [facility] Address [address] [place], [place] [address] Care Team Providers Care Wash Worker Name Role Phone Bonita Bartlett APRN.RESIDENTIAL SALES ASSOCIATE Primary Car e Provider Allergies No known active allergies Medications MedicationSigDispense QuantityRefillsLast FilledStart DateEnd DateStatus Omeprazole Magnesium 20 mg tablet Take 20 mg by mouth once daily.Active aspirin, enteric coated (ASPIRIN, ENTERIC COATED) 81 mg EC tablet Take 81 mg by mouth once daily.Active Cholecalciferol, Vitamin D3, 50 mcg (2,000 unit) cap Take 2,000 Units by mouth once daily.Active FIBER, HERBAL, ORAL Take by mouth once daily.Active multivit-min/ferrous fumarate (MULTI VITAMIN ORAL) Take by mouth once daily.Active antiox #8/om3/dha/epa/lut/zeax (PRESERVISION AREDS 2, OMEGA-3, ORAL) Take by mouth once daily.Active Active Problems ProblemNoted DateDiagnosed DateDiffuse large B cell xlevntdd01/12/2012 Family History Medical HistoryRelationCommentsCancerBrother 1CancerBrother 2Rectal CancerFather Multiple myelomaMotherBreast CancerSisterRelationStatusCommentsBrother 1Deceased Brother 2DeceasedFatherDeceasedMotherDeceasedSisterDeceased Social History Tobacco UseTypesPacks/DayYears UsedDateSmoking Tobacco: NeverPassive Smoke Exposure: NeverSmokeless Tobacco: Never Tobacco Cessation:Counseling Given: Not Answered Alcohol UseStandard Drinks/WeekCommentsNo0 (1 standard drink = 0.6 oz pure alcohol)Area Deprivation IndexAnswerDate RecordedNational Score (1-100), lower number is lower ufyd374105/02/2024State Score (1-10), lower number is lower risk9 05/02/2024ata from: https://www.neighborhoodatlas.[facility].edu/. Last address used for decx[address]by[address]4CommentsNoSex and Gender InformationValueDate RecordedSex Assigned at BirthNot on fileLegal Sex Imhvrx1707/22/2012 10:12 AM ESTGender IdentityNot on fileSexual OrientationNot on file Last Filed Vital Signs Vital SignReadingTime TakenCommentsBlood Sajqedcn972/8009 10:44 AM EDT Ynmum78723/12/2024 10:44 AM FRAKbfapaoeusg63.5 ??C (97.7 ??F)05/02/2024 10:44 AM EDTRespiratory Ydnm481905/02/2024 10:44 AM EDTOxygen Lbawzmlaoc67%05/02/2024 10:44 AM EDTInhaled Oxygen Concentration--Bdqchq42.5 kg (159 lb 13.3 oz)05/02/2024 10:44 AM QACOdsovf549 cm (5' 3 )05/02/2024 10:44 AM EDTBody Mass Index28.31 05/02/2024 10:44 AM EDT Plan of Treatment Health MaintenanceDue DateLast DoneCommentsAnxiety Gpniwupgj93/03/1962Depression Ndougqahw68/03/1962DTaP,Tdap,Td Vaccine (1 - Tdap)01/21/1963Pneumococcal Vaccine: 50+ (1 of 1 - PCV)01/21/1994Shingrix Vaccine (1 of 2)01/21/1994Bone Density Xfzzeiyze88/03/2009Diabetes Ibslfxtdt75/16/, 09/03/2012, 07/02/2012RSV Vaccine (1 - 1-dose 75+ series)01/21/2019Advance Directive Bwzftyzgvh55/01/2025Medicare Advantage Annual Wellness Visit08/21/2024ovid-19 Vaccine (1 - 2024- season)2025Influenza Vaccine (#1)5Cologuard (FIT-DNA)Gobrpyvnzukt74/24/2021Colorectal Cancer ScreeningDiscontinuedCT ColonographyDiscontinuedColonoscopyDiscontinuedFecal Occult BloodDiscontinued SigmoidoscopyDiscontinued Procedures Procedure NamePriorityDate/TimeAssociated DiagnosisCommentsCOMPREHENSIVE METABOLIC UNJPPWldzqbk87/16/2013 11:05 AM EDT Diffuse large B cell lymphoma from Last 3 Months or Most Recently Relevant to Health Maintenance Results * (ABNORMAL) COMP METABOLIC PANEL (05/06/2013 11:05 AM EDT)ComponentValueRef RangeTest MethodAnalysis TimePerformed AtPathologist SignatureProtein, Total 6.96.0 - 8.4 g/dLPREMIER [facility] LABORATORYAlbumin4.03.5 - 5.0 g/dL [facility] LABORATORYCalcium9.68.5 - 10.5 mg/dLPREMIER HEALTH [facility] LABORATORYBilirubin, Total0.20.0 - 1.5 mg/dLPREMIER HEALTH [facility] LABORATORYAlkaline Xsqliukbqtw8435 - 150 U/L[facility] XHJ614 - 40 U/L[facility] RSUNXMXWSPRwpwfgk034(H)65 - 100 mg/dL [facility] XIZEKCZGBOCHD681 - 25 mg/dLPREMIER [facility]ALTH [facility] LABORATORYCreatinine0.740.70 - 1.40 mg/dLPREMIER [facility] Ucpclr690972 - 148 mmol/LCHEN[facility] LABORATORYPotassium3.83.5 - 5.0 mmol/L[facility] IMILYGKINICqlhredm48492 - 110 mmol/L[facility] LKTLZBWVGNEH80530 - 32 mmol/LCH[facility] LABORATORYAnion Avn093 - 15 mmol/L[facility] VODCEYHKYRMDG371 - 45 U/LCH[facility] LABORATORYeGFR->60[facility] eGFR-All Other Races>60.[facility] LABORATORYComment: eGFR (Estimated GFR) Units of measure: mL/min/1.73 meters squared eGFR is derived from the reexpressed MDRD Study equation using the following parameters: serum creatinine, age, gender and race. The creatinine assay has been calibrated to be traceable to IDMS. An eGFR <60 mL/min/1.73m2 for >3 months is consistent with chronic kidney disease. Refer to KDOQI guidelines for clinical interpretation. Specimen (Source)Anatomical Location / LateralityCollection Method / Volume Collection TimeReceived TimeBlood specimen (specimen)BLOOD SPECIMEN / Unknown 05/06/2013 11:05 AM EDT05/06/2013 11:07 AM EDT Narrative Authorizing ProviderResult TypeResult StatusAlfred P VargasLABORATORYFinal ResultPerforming OrganizationAddressCity/State/ZIP CodePhone Number [facility] [address] [place] [address] from Last 3 Months or Most Recently Relevant to Health Maintenance Insurance Care Teams Team MemberRelationshipSpecialtyStart DateEnd Date Bonita Bartlett APRN.CNP PCP - GeneralFamily Medicine04/15/24
--- OUTSIDE RECORDS SUMMARY | 2025-07-10 12:14 | XMS_ITS | CCD ---
Author Organization [facility] CliniSymd Care Team Providers Care Receiving Clerk Name Role Phone WEST, DR MAMIE Arreola Consulting Unavailable HOUSE, DR ZUNIGA Attending Unavailable HOUSE, DR ZUNIGA Admitting Unavailable HOUSE, DR ZUNIGA Primary Care Unavailable HOUSE, DR ZUNIGA Consulting Unavailable HOUSE, DR ZUNIGA Primary Care Unavailable HOUSE, DR ZUNIGA Consulting Unavailable HOUSE, DR ZUNIGA Attending Unavailable HOUSE, DR ZUNIGA Admitting Unavailable MD Guillermo Leroy Attending Provider JAMEL Monge Attending Provider Guillermo Leroy Admitting Unavailable Guillermo Leroy Attending Unavailable Brown Monge Attending Unavailable Brown Monge Admitting Unavailable Bonita Pugh APRN Primary Care Provider GUILLERMO LEROY Referring Unavailable BONITA PUGH Primary Care Un available AMINTA RANDALL Attending Unavailable BONITA PUGH Primary Care Un available Shaikh Sales MD Unavailable Son Loza MD Primary Care Provider [phone] Bonita Pugh NP Unavailable Son Loza MD Primary Care Provider Son Loza MD Attending Provider [phone] Son Loza MD Primary Care Provider Son Loza MD Primary Care Provider [phone] NU ENRIQUEZ Attending Unavailable [facility] Referring Unava ilable NU ENRIQUEZ Attending Unavailable Shaikh Sales MD Unavailable Son Loza MD Primary Care Provider Lexy RODAS, Bnoita Unavailable Mónica BEAVERS, Primary Care Provider Allergies Allergy ClassificationReported Allergen(s)Allergy TypeDate of OnsetReaction(s) Facility (1 source)LatexDrug allergy (disorder)[facility]ository Medications Current Medications MedicationDrug Class(es)DatesSig (Normalized)Sig (Original)[id number] 200 actuat albuterol 0.09 mg/actuat metered dose inhaler (9 sources)beta2-Adrenergic AgonistStart: 74-69-6882maiw 1 puff(s) by inhalation every four hours as neededAlbuterol Sulfate 90 mcg/actuation HFA aerosol inhaler Active 2 PUFF INHALATION Every 4 hours as needed May 08, 2025 12:00am Complies with drug therapyStart: 11-13-2023 End: 59-50-2521eahg 2 puff(s) by inhalation every four hours for wheezing albuterol HFA 90 mcg/act inhaler Indications: URTI (acute upper respiratory infection) Inhale 2 puffs every 4 (four) hours if needed for wheezing 8.5 g 11/13/2023 06/18/2025 Discontinued (Therapy completed)antiox #8/om3/dha/epa/lut/zeax (PRESERVISION AREDS 2, OMEGA-3, ORAL) (1 source)antiox #8/om3/dha/epa/lut/zeax (PRESERVISION AREDS 2, OMEGA-3, ORAL) Take by mouth once daily. Activeascorbic acid 500 mg extended release oral capsule (14 sources)Vitamin CStart: 76-28-7435tywu 1 capsule by mouth once dailyAscorbic Acid (Vitamin C) 500 mg capsule, extended release Active 500 MG PO Daily May 08, 2025 12:00am Complies with drug therapyAscorbic Acid (VITAMIN C ER PO) Take by mouth Activeaspirin 81 mg delayed release oral tablet (15 sources)Platelet Aggregation Inhibitor, Nonsteroidal Anti-inflammatory Drug Start: 85-92-0138Nqpsdzx (Adult Low Dose Aspirin) 81 mg tablet,delayed release (DR/EC) Active 81 MG PO Daily May 08, 2025 12:00am Complies with drug therapycholecalciferol 0.05 mg oral capsule (1 source)Vitamin Dtake 1 capsule by mouth once dailyCholecalciferol, Vitamin D3, 50 mcg (2,000 unit) cap Take 2,000 Units by mouth once daily. Activedocusate calcium 240 mg oral capsule (14 sources)Start: 07-84-2930hxeq 1 capsule by mouth once dailyDocusate Calcium 240 mg capsule Active 240 MG PO Daily May 08, 2025 12:00am Complies with drug therapyDocusate Calcium (STOOL SOFTENER PO) Take by mouth ActiveFIBER, HERBAL, ORAL (1 source)FIBER, HERBAL, ORAL Take by mouth once daily. Activeinulin 1500 mg chewable tablet (14 sources)Start: 49-58-4691Bjpzgt 1.5 gram tablet,chewable Active GM PO May 08, 2025 12:00am Complies with drug therapyInulin (FIBER CHOICE PO) Take by mouth Activeloratadine 10 mg oral tablet (14 sources)Start: 77-77-4739djmc 1 tablet by mouth once dailyloratadine (Claritin) 10 MG tablet Indications: URTI (acute upper respiratory infection) Take 1 tablet (10 mg) by mouth Daily 30 tablet 2 11/13/2023 ActiveMultiple Vitamin (multivitamin) tablet (12 sources)take 1 tablet by mouth once dailyMultiple Vitamin (multivitamin) tablet Take 1 tablet by mouth Daily Activetake 1 tablet by mouth in the morning Multiple Vitamin (multivitamin) tablet Take 1 tablet by mouth in the morning. ActiveMultiple Vitamins-Minerals (PRESERVISION AREDS 2 PO) (5 sources)Multiple Vitamins-Minerals (PRESERVISION AREDS 2 PO) Take by mouth Activemultivit-min/ferrous fumarate (MULTI VITAMIN ORAL) (1 source)multivit-min/ferrous fumarate (MULTI VITAMIN ORAL) Take by mouth once daily. ActiveMultivitamin (Daily Multi-Vitamin) tablet (2 sources)Start: 46-33-8624omsx 1 tablet by mouth once dailyMultivitamin (Daily Multi-Vitamin) tablet Active 1 TAB PO Daily May 08, 2025 12:00am Complie s with drug therapymupirocin 0.02 mg/mg topical ointment (5 sources)RNA Synthetase Inhibitor AntibacterialStart: 32-37-4532cojnmewro (Bactroban) 2 % ointment Indications: Chronic rhinitis Apply to the left side of the nosetwice daily for one month 15 g 1 05/20/2025 Activeomeprazole 20 mg delayed release oral capsule (15 sources)Proton Pump InhibitorStart: 44-39-6883xvlp 1 capsule by mouth once dailyOmeprazole Magnesium 20 mg capsule,delayed release(DR/EC) Active 20 MG PO Daily May 08, 2025 12:00am Complies with drug therapytake 1 tablet by mouth before mealtimeomeprazole OTC (PriLOSEC OTC) 20 MG EC tablet Take 20 mg by mouth in the morning. Take before meals. Do not crush, chew, or split. Active oxymetazoline hydrochloride 0.5 mg/ml nasal spray (9 sources)Start: 00-60-6234Opmemwnzdmnot (Afrin Sinus (Oxymetazoline)) 0.05 % spray,non-aerosol Active 2 SPRAY INTRANASAL Every 12 hours as needed May 08, 2025 12:00am Complies with drug therapyStart: 11-13-2023 End: 74-43-9690bpspsypggvklg (Afrin Nasal [place]) 0.05 % nasal spray Indications: URTI (acute upper respiratory infection) Administer 2 sprays into each nostril every 12 (twelve) hours if needed for congestion for up to 2 days Do not use for more than 3 days. 30 mL 11/13/2023 06/18/2025 Discontinued (Therapy completed) Zinc Methionine Sulfate-Copper 15-1 mg capsule (2 sources)Start: 92-53-5060Ztat Methionine Sulfate-Copper 15-1 mg capsule Active CAP PO May 08, 2025 12:00am Complies with drug therapyZinc Sulfate (12 sources)Zinc Sulfate (ZINC 15 PO) Take by mouth Active Completed/Discontinued Medications MedicationDrug Class(es)DatesSig (Normalized)Sig (Original)simvastatin 40 mg oral tablet (1 source)HMG-CoA Reductase InhibitorStart: 08-21-2012 End: 43-54-0570mskx 1 tablet by mouth once daily at bedtimeSIMVASTATIN 40 mg tablet Take 40 mg by mouth daily at bedtime. 08/21/2012 05/02/2024 Discontinued (Discontinued by Patient) Problems Active Problems Problem ClassificationProblemDateDocumented DateEpisodic/ChronicDiseases of white blood cells (2 sources)Leukocytosis; Translations: [Elevated white blood cell count, unspecified]Onset: 398856-81-2118NohkmnpKujwnikuwj disorders (14 sources)Gastroesophageal reflux disease without esophagitis; Translations: [Gastro-esophageal reflux disease without esophagitis]Onset: 08-22-2023 09-46-2639CutvmwtJblaxma and fatigue (1 source)Other fatigue; Translations: [OTHER FATIGUE]Onset: 91-21-0130Myskdjzn Neoplasms of unspecified nature or uncertain behavior (1 source)Post-splenectomy thrombocytosis; 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]85-00-2042UzszjordLdo-Hodgkin`s lymphoma (20 sources)Unspecified B-cell lymphoma, unspecified site; Translations: [Diffuse non-Hodgkin's lymphoma, largecell (clinical)]Onset: 20-79-4789Wflbrpz Non-Hodgkin`s lymphoma (2 sources)History of malignant lymphoma; Translations: [Personal history of non-Hodgkin lymphomas]Onset: 169904-02-0023DqzzihqxCkewn screening for suspected conditions (not mental disorders or infectious disease) (5 sources)Encounter for screening mammogram for malignant neoplasm of breast; Translations: [Patient encounter status]Onset: 36-13-3557WntfrrogMwupi upper respiratory disease (4 sources)Chronic rhinitis; Translations: [Chronic rhinitis]09-49-1352Kgepawi Other upper respiratory disease (14 sources)Lesion of nose; Translations: [Other specified disorders of nose and nasal sinuses]Onset: 42-88-9087ZnbubwaeVlbikyax codes; unclassified (1 source)Family history of malignant neoplasm of breast; Translations: [FAMILY HX MALIG NEOPLASM OF BREAST]Onset: 06-45-6734AbwbgzuyGccmgvph codes; unclassified (1 source)Family history of other malignant neoplasms of lymphoid, hematopoietic and related tissues; Translations: [FAM HX OTH MAL MARCUS LYMPH HEMATPOETC]Onset: 84-35-0147DunqqsjmJbhomjpk codes; unclassified (1 source)Family history of malignant neoplasm of digestive organs; Translations: [FAM HX MALIG NEOPLASM DIGESTIV ORGN]Onset: 63-97-0696Jkudckua Residual codes; unclassified (1 source)Family history of malignant neoplasm of prostate; Translations: [FAMILY HX MALIG NEOPLASM PROSTATE]Onset: 32-61-2691IzccwmwiCmfwjmvh codes; unclassified (1 source)Family history of malignant neoplasm, unspecified; Translations: [FAM HX MALIGNANT NEOPLASM UNS]Onset: 37-11-1234OqxulrquBciwfqrv codes; unclassified (1 source)Acquired absence of spleen; 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]Onset: 81-56-2271MbyhioiwBhcrpbhcwler (1 source)Postsplenectomy thrombocytosis; 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]Onset: 36-56-8916Rhwrktdkfjzl (1 source)J34.89 - Other specified disorders of nose and nasal sinuses Past or Other Problems Problem ClassificationProblemDateDocumented DateEpisodic/ChronicMood disorders (10 sources)Mood disordersOnset: 341537-01-1015Sjxmw connective tissue disease (14 sources)Pain of toe of right foot; Translations: [Pain in right toe(s)] Onset: 174626-46-0246VlfcasbuYuufk upper respiratory infections (20 sources)Pharyngitis; Translations: [Acute pharyngitis, unspecified]Onset: 800094-66-7267SmzskpsrJzvbvw media and related conditions (14 sources)Acute suppurative otitis media without spontaneous rupture of ear drum; Translations: [Acute suppurative otitis media without spontaneous rupture of ear drum, bilateral]Onset: 745931-96-9844OcmblctiJjpvwjf and strains (14 sources)Sprain of left ankle; Translations: [Sprain of unspecified ligament of left ankle, initial encounter]Onset: 876973-89-0061Fdofdtik Results Test NameValueInterpretationReference RangeFacilityMM TOMOSYNTHESIS SCREENING BI on 75-24[place] [address] Mammography Report Signed Patient: WINGGENESIS Fernandez MR#: [id number] : 1945 Acct:[id number] Age/Sex: 79 / F ADM Date: 07/09/24 Loc: MAMMO Attending Dr: BONITA PUGH Ordering Physician: BONITA PUGH Results: Date of Service: 07/09/24 Follow Up: Procedure(s): MM tomosynthesis screening BI Accession Number(s): [id number] cc: BONITA PUGH Patient Name: GENESIS DARBY MR#: [id number] : 1945 Exam Date: 07/09/2024 Ordering Doctor: BONITA PUGH RADIOLOGY REPORT PROCEDURE: MM TOMOSYNTHESIS SCREENING BI COMPARISON: MG MAMM SCREEN 3D JUAN MANUEL CAD, 07/06/2022. MM TOMOSYNTHESIS SCREENING BI, 07/07/2023. INDICATIONS: Screening Calculator Name NCI Breast Cancer Risk Assessment Tool 5 Year Breast Cancer Risk 7.80% Lifetime Breast Cancer Risk 11.70% Personal Breast Cancer No Personal Ovarian Cancer No Treatments Spleenectomy, Chemo, Radiation Family Cancers Sister with breast cancer at age 45; Sister with breast cancer at age 77; Mother with multiple myeloma cancer at age 72; Father with rectal cancer at age 62; Brother with prostate cancer at age 75; Brother with unknown cancer at age 70. LOCATION: [facility] BREAST COMPOSITION: The breasts are heterogeneously dense,which may obscure small masses. FINDINGS: DIAGNOSTIC CATEGORY 2--BENIGN FINDING. NO CHANGE FROM COMPARISON. Scattered benign-appearing calcifications are present. Scattered benign-appearing lymph nodes are present. RIGHT BREAST: No significant suspicious finding. LEFT BREAST: No significant suspicious finding. RECOMMENDATIONS: ROUTINE MAMMOGRAM AND CLINICAL EVALUATION IN 12 MONTHS. PLEASE NOTE: A NORMAL MAMMOGRAM DOES NOT EXCLUDE THE POSSIBILITY OF BREAST CANCER. A CLINICALLY SUSPICIOUS PALPABLE LUMP SHOULD BE BIOPSIED. Dictated by: Mamie Freeman MD on 07/10/2024 at 08:21 Approved by: Mamie Freeman MD on 07/10/2024 at 08:23 Dictated By: Mamie Freeman M.D. Signed By: 07/10/24823 DD/ 2 TD/TT: Laminator Preforms:TBHRadiology, RadiologistMD - 07/10/2024 [place] [address] Mammography Report Signed Patient: GENESIS DARBY MR#: [id number] : 1945 Acct:[id number] Age/Sex: 79 / F ADM Date: 07/09/24 Loc: MAMMO Attending Dr: BONITA PUGH Ordering Physician: BONITA PUGH Results: Date of Service: 07/09/24 Follow Up: Procedure(s): MM tomosynthesis screening BI Accession Number(s): [id number] cc: BONITA PUGH Patient Name: GENESIS DARBY MR#: [id number] : 1945 Exam Date: 07/09/2024 Ordering Doctor: BONITA PUGH RADIOLOGY REPORT PROCEDURE: MM TOMOSYNTHESIS SCREENING BI COMPARISON: MG MAMM SCREEN 3D JUAN MANUEL CAD, 07/06/2022. MM TOMOSYNTHESIS SCREENING BI, 07/07/2023. INDICATIONS: Screening Calculator Name NCI Breast Cancer Risk Assessment Tool 5 Year Breast Cancer Risk 7.80% Lifetime Breast Cancer Risk 11.70% Personal Breast Cancer No Personal Ovarian Cancer No Treatments Spleenectomy, Chemo, Radiation Family Cancers Sister with breast cancer at age 45; Sister with breast cancer at age 77; Mother with multiple myeloma cancer at age 72; Father with rectal cancer at age 62; Brother with prostate cancer at age 75; Brother with unknown cancer at age 70. LOCATION: [facility] BREAST COMPOSITION: The breasts are heterogeneously dense,which may obscure small masses. FINDINGS: DIAGNOSTIC CATEGORY 2--BENIGN FINDING. NO CHANGE FROM COMPARISON. Scattered benign-appearing calcifications are present. Scattered benign-appearing lymph nodes are present. RIGHT BREAST: No significant suspicious finding. LEFT BREAST: No significant suspicious finding. RECOMMENDATIONS: ROUTINE MAMMOGRAM AND CLINICAL EVALUATION IN 12 MONTHS. PLEASE NOTE: A NORMAL MAMMOGRAM DOES NOT EXCLUDE THE POSSIBILITY OF BREAST CANCER. A CLINICALLY SUSPICIOUS PALPABLE LUMP SHOULD BE BIOPSIED. Dictated by: Mamie Freeman MD on 07/10/2024 at 08:21 Approved by: Mamie Freeman MD on 07/10/2024 at 08:23 Dictated By: Mamie Freeman M.D. Signed By: 07/10/24 0824 DD/ 2 TD/TT: Laminator Preforms: LILY HealthcareRadiology Study observation (narrative)[facility] TOMOSYNTHESIS SCREENING BIOrdered By: Radiologist Radiology on 77-83-1338LWRA [employer] Work Phone: cbc W Auto Differential panel (Bld)on 05-02-2024 Basophils (Bld) [#/Vol]0.14 10*3/uLHighNINFMarymount HospitalBasophils/100 WBC (Bld)1.3 %Marymount HospitalDifferential cell count method Nom (Bld)AutoCleveland ClinicEosinophils (Bld) [#/Vol]0.22 10*3/uLNINFCleProMedica Defiance Regional HospitalEosinophils/100 WBC (Bld)2.1 %[facility]mount HospitalErythrocyte distribution width (RBC) [Ratio]15.0 % 11.5 - 15.0 %[facility] HospitalHematocrit (Bld) [Volume fraction]43.3 %36.0 - 46.0 %[facility] HospitalHemoglobin (Bld) [Mass/Vol]14.8 g/dL11.5 - 15.5 g/dLMarymount HospitalImmature granulocytes (Bld) [#/Vol]0.04 10*3/uLNINFMarymount Hospital Immature granulocytes/100 WBC (Bld)0.4 %[facility] HospitalInterpretation and review of laboratory resultsAbnormalCleveland ClinicLymphocytes (Bld) [#/Vol] 3.96 10*3/uLMarymount HospitalLymphocytes/100 WBC (Bld)37.6 %[facility]mount HospitalMCH (RBC) [Entitic mass]32.4 pg26.0 - 34.0 pgCleveland Murray County Medical CenterHC (RBC) [Mass/Vol] 34.2 g/dL30.5 - 36.0 g/dLGerman HospitalV (RBC) [Entitic vol]94.7 fL80.0 - 100.0 fLCleveland ClinicMonocytes (Bld) [#/Vol]1.28 10*3/uLHighNINFManchester ClinicMonocytes/100 WBC (Bld)12.2 %[facility] HospitalNeutrophils (Bld) [#/Vol]4.88 10*3/uLCleveland ClinicNeutrophils/100 WBC (Bld)46.4 %[facility]mount HospitalNucleated RBC (Bld) [#/Vol]NINFCGuernsey Memorial HospitalNucleated RBC/100 WBC (Bld) [Ratio]0.0 % /100 WBCMarymount HospitalPlatelet mean volume (Bld) [Entitic vol]9.0 fL9.0 - 12.7 fLClevelCleveland Clinic Fairview HospitalPlatelets (Bld) [#/Vol]353 10*3/uLMarymount HospitalRBC (Bld) [#/Vol]4.57 10*6/uL3.90 - 5.20 m/[facility] Medical CenterWBC (Bld) [#/Vol]10.52 10*3/[facility] Medical CenterBasophils (Bld) [#/Vol]0.14 10*3/uLHigh<0.11COhioHealth Dublin Methodist HospitalComment on above:Order Comment: Specimen Type: BLOOD SPECIMEN Ordering Facility: [facility] Address: [address] [place], [place] [address]Performed By: #### 09709-7, 09874-0 #### [facility] CLIA [id number] [address] [place] [address] 29622Djguhdben/100 WBC (Bld)1.3 %NormalCleveland Clinic [facility] Comment on above:Order Comment: Specimen Type: BLOOD SPECIMEN Ordering Facility: [facility] Address: [address] [place], [place] [address]Performed By: #### 45996-4, 12221-2 #### [facility] CLIA [id number] [address] [place] [address] 44744Ghsjslhnsozn cell count method Nom (Bld)AutoNormalCOhioHealth Dublin Methodist HospitalCommclaren thumb region on above:Order Comment: Specimen Type: BLOOD SPECIMEN Ordering Facility: [facility] Address: [address] [place], [place] [address]Performed By: #### 30210-3, 34227-2 #### [facility] CLIA [id number] [address] [place] [address] 48551Vihmbttgvtz (Bld) [#/Vol]0.22 10*3/uLNormal<0.46[facility] on above:Order Comment: Specimen Type: BLOOD SPECIMEN Ordering Facility: [facility] Address: [address] [id number] By: #### 28696-5, 95112-1 #### [facility] CLIA [id number] [address] [place] [address] 89992Fyjvnebobsj/100 WBC (Bld)2.1 %NormalCleveland Clinic Hillcrest Hospital Comment on above:Order Comment: Specimen Type: BLOOD SPECIMEN Ordering Facility: [facility] Address: [address] [place], [place] [address]Performed By: #### 97991-2, 75532-9 #### [facility] CLIA [id number] [address] [place] [address] 99518Pxnzbssoklw distribution width (RBC) [Ratio]15.0 %Normal 11.5-15.0[facility] on above:Order Comment: Specimen Type: BLOOD SPECIMEN Ordering Facility: [facility] Address: [address] [place], [place] [address]Performed By: #### 19698-1, 22590-4 #### [facility] CLIA [id number] [address] [place] [address] 00882Kkdfszxfkt (Bld) [Volume fraction]43.3 %Ycefrg61.0-46.0 [facility] on above:Order Comment: Specimen Type: BLOOD SPECIMEN Ordering Facility: [facility] Address: [address] [place], [place] [address]Performed By: #### 27502-3, 53503-4 #### [facility] CLIA [id number] [address] [place] [address] 31001Uijclydgcf (Bld) [Mass/Vol]14.8 g/kMZrnonh51.5-15.5CFisher-[facility] on above:Order Comment: Specimen Type: BLOOD SPECIMEN Ordering Facility: [facility] Address: [address] [place], [place] [address]Performed By: #### 05676-3, 67589-3 #### [facility] CLIA [id number] [address] [place] [address] 36025Bsdfxqnc granulocytes (Bld) [#/Vol]0.04 10*3/uLNormal<0.10 [facility] on above:Order Comment: Specimen Type: BLOOD SPECIMEN Ordering Facility: [facility] Address: [address] [place], [place] [address]Performed By: #### 38549-6, 11897-0 #### [facility] CLIA [id number] [address] [place] [address] 04347Siwogywq granulocytes/100 WBC (Bld)0.4 %NormalSouthern Ohio Medical Center on above:Order Comment: Specimen Type: BLOOD SPECIMEN Ordering Facility: [facility] Address: [address] [place], [place] [address]Performed By: #### 40087-0, 26203-7 #### [facility] CLIA [id number] [address] [place] [address] 13781Wsufcvtwuka (Bld) [#/Vol]3.96 10*3/uLNormal1.00-4.00[facility] on above:Order Comment: Specimen Type: BLOOD SPECIMEN Ordering Facility: [facility] Address: [address] [place], [place] [address]Performed By: #### 57877-1, 74713-5 #### [facility] CLIA [id number] [address] [place] [address] 64575Rpyzgxprfyn/100 WBC (Bld)37.6 %NormalSouthern Ohio Medical Center on above:Order Comment: Specimen Type: BLOOD SPECIMEN Ordering Facility: [facility] Address: [address] [place], [place] [address]Performed By: #### 99287-4, 11310-8 #### [facility] CLIA [id number] [address] [place] [address] 13510ZZZ (RBC) [Entitic mass]32.4 fzSgbsnb90.0-34.0[facility] on above:Order Comment: Specimen Type: BLOOD SPECIMEN Ordering Facility: [facility] Address: [address] [place], [place] [address]Performed By: #### 32364-9, 85760-4 #### [facility] CLIA [id number] [address] [place] [address] 70573MFWG (RBC) [Mass/Vol]34.2 g/fQLonrni10.5-36.0[facility] on above:Order Comment: Specimen Type: BLOOD SPECIMEN Ordering Facility: [facility] Address: [address] [place], [place] [address]Performed By: #### 65569-3, 86271-1 #### [facility]ITALMARIA [facility] CLIA [id number] [address] [place] [address] 10604HYA (RBC) [Entitic vol]94.7 qHGxoeuf33.0-100.0[facility] on above:Order Comment: Specimen Type: BLOOD SPECIMEN Ordering Facility: [facility] Address: [address] [place], [place] [address]Performed By: #### 15221-6, 67121-2 #### [facility] CLIA [id number] [address] [place] [address] 23313Psxkypjqy (Bld) [#/Vol]1.28 10*3/uLHigh<0.87[facility] on above:Order Comment: Specimen Type: BLOOD SPECIMEN Ordering Facility: [facility] Address: [address] [place], [place] [address]Performed By: #### 70466-7, 37835-3 #### [facility] CLIA [id number] [address] [place] [address] 60915Turnnnhto/100 WBC (Bld)12.2 %NormalCleveland Clinic Hillcrest Hospital Comment on above:Order Comment: Specimen Type: BLOOD SPECIMEN Ordering Facility: [facility] Address: [address] [place], [place] [address]Performed By: #### 72127-4, 31836-2 #### [facility] CLIA [id number] [address] [place] [address] 54846Kpqoztkiefd (Bld) [#/Vol]4.88 10*3/uLNormal1.45-7.50[facility] on above:Order Comment: Specimen Type: BLOOD SPECIMEN Ordering Facility: [facility] Address: [address] [place], [place] [address]Performed By: #### 33791-4, 54299-7 #### [facility] CLIA [id number] [address] [place] [address] 67535Rigjdypfdmx/100 WBC (Bld)46.4 %NormalSouthern Ohio Medical Center on above:Order Comment: Specimen Type: BLOOD SPECIMEN Ordering Facility: [facility] Address: [address] [place], [place] [address]Performed By: #### 64974-9, 38023-1 #### [facility] CLIA [id number] [address] [place] [address] 64247Wlsummdqb RBC (Bld) [#/Vol]10*3/uLNormal<0.01[facility] on above:Order Comment: Specimen Type: BLOOD SPECIMEN Ordering Facility: [facility] Address: [address] [place], [place] [address]Performed By: #### 00448-5, 75286-2 #### [facility] CLIA [id number] [address] [place] [address] 70819Tbpecfuas RBC/100 WBC (Bld) [Ratio]0.0 /100 WBCNormalCFisher-Titus Medical Center on above:Order Comment: Specimen Type: BLOOD SPECIMEN Ordering Facility: [facility] Address: [address] [place], [place] [address]Performed By: #### 51747-3, 69752-0 #### [facility] CLIA [id number] [address] [place], [place] [address]Qrlxkehn mean volume (Bld) [Entitic vol]9.0 fLNormal9.0-12.7 [facility] on above:Order Comment: Specimen Type: BLOOD SPECIMEN Ordering Facility: [facility] Address: [address] [address] [place], [place] [address]Performed By: #### 09501-1, 95834-8 #### [facility] CLIA [id number] [address] [place] [address] 41675Bvnzhkngl (Bld) [#/Vol]353 10*3/dEOjwqyd658-553SrqwpfqwpSouthern [facility] on above:Order Comment: Specimen Type: BLOOD SPECIMEN Ordering Facility: [facility] Address: [address] [place], [place] [address]Performed By: #### 37646-8, 78263-5 #### [facility] CLIA [id number] [address] [place] [address] 56436ALK (Bld) [#/Vol]4.57 10*6/uLNormal3.90-5.20[facility] on above:Order Comment: Specimen Type: BLOOD SPECIMEN Ordering Facility: [facility] Address: [address] [place], [place] [address]Performed By: #### 45842-1, 80532-6 #### [facility] CLIA [id number] [address] [place] [address] 82707WQN (Bld) [#/Vol]10.52 10*3/uLNormal3.70-11.00[facility] on above:Order Comment: Specimen Type: BLOOD SPECIMEN Ordering Facility: [facility] Address: [address] [place], [place] [address]Performed By: #### 65004-9, 73066-8 #### [facility] CLIA [id number] [address] [place] [address] 65541YREMUHgw 34-43-0386DGKQPCIaoyh () Office ([place]) GENESIS DARBY ([id number]) 1945 F Date Time Provider Department 05/02/24 11:15 AM AMINTA RANDALL During your visit today, we recorded the following information about you: Temperature Pulse Respiration Blood pressure 97.7 degrees 106/minute 16/minute 134/80 Weight Height 72.5 kg 1.6 m Aminta Randall MD 05/02/2024 8:14 PM Signed PATIENT NAME: Genesis Darby DATE: 05/02/2024 PRIMARY CARE PHYSICIAN: Bonita Pugh APRN OTHER PHYSICIANS: Dr. Guillermo Leroy ([facility]) HPI: This is an 79 year [...] erythema, tenderness, soft tis (more content not included)...NormalCleveland Clinic Hillcrest HospitalFERRITINon 65-78-6768Jxrjtyds [Mass/Vol]163.0 ng/mL14.7 - 205.1 ng/mLCGuernsey Memorial HospitalFerritin SerPl-mCncon 87-90-8000Imctedgo [Mass/Vol]163.0 ng/wDAdfyjz83.7-205.1COhioHealth Dublin Methodist HospitalComment on above:Order Comment: Specimen Type: BLOOD SPECIMEN Ordering Facility: [facility] Address: [address] [place], [place] [address]Performed By: #### 92748-0, 2276-4 #### [facility] CLIA [id number] [address] [place] [address] [place] STATES OF AMERICAFerritin [Mass/Vol]on 53-25-6437Erccnkbnzewmnh and review of laboratory resultsNormalCOhioHealth Dublin Methodist Hospital ClinicIron and Iron binding capacity panelon 48-44-3383Fjvjiauqqmjvjh and review of laboratory resultsNormalCbarnesville hospital ClinicIron [Mass/Vol]99 ug/dL41 - 186 ug/dLMarymount HospitalIron binding capacity [Mass/Vol]271 ug/dL232 - 386 ug/dLMarymount HospitalIron/TIBC [Molar ratio]36.5 %15.0 - 57.0 %[facility]'Bleness HospitalIron [Mass/Vol]99 ug/yKVsdvpm76-047DnmycmieuCleveland Clinic Hillcrest Hospital Comment on above:Order Comment: Specimen Type: BLOOD SPECIMEN Ordering Facility: [facility] Address: [address] [place], [place] [address]Performed By: #### 43097-8, 2276-4 #### [facility] CLIA [id number] [address] [place] [address] [place] OF AMERICAIron binding capacity [Mass/Vol]271 ug/lAWhlemv724-158QoerxgujdSouthern [facility] Medical Center on above:Order Comment: Specimen Type: BLOOD SPECIMEN Ordering Facility: [facility] Address: [address] [place], [place] [address]Performed By: #### 39909-9, 2276-4 #### [facility] CLIA [id number] [address] [place] [address] [place] OF AMERICAIron/TIBC [Molar ratio]36.5 %Qqemqv38.0-57.0[facility] on above:Order Comment: Specimen Type: BLOOD SPECIMEN Ordering Facility: [facility] Address: [address] [place], [place] [address]Performed By: #### 21985-0, 6-4 #### [facility] CLIA [id number] [address] [place] [address] [place] OF AMERICANo Panel Informationon 00-66-3266Ghrozcpfw ClinicRETICULOCYTE COUNTon 19-26-7734Fqcvnhvdjzfct (Bld) [#/Vol]0.076 10*3/uLManchester ClinicRetics #on 98-86-2810Ksdbbwoocmwrp (Bld) [#/Vol]0.15304 10*3/uLNormal0.018-0.100[facility] on above:Order Comment: Specimen Type: BLOOD SPECIMEN Ordering Facility: [facility] Address: [address] [place], [place] [address]Performed By: #### 68274-1, 14950-8 #### [facility] CLIA [id number] [address] [place] [address] 34299Soemuqzipuayd (Bld) [#/Vol]on 05-78-6810Jibefhiwcuthao and review of laboratory resultsNormalCbarnesville hospital ClinicReticulocytes/100 RBC (Bld)1.7 %0.4 - 2.0 %Manchester ClinicReticulocytes/100 RBC (Bld)1.7 %Normal0.4-2.0 [facility] Hillcrest HospitalCommclaren thumb region on above:Order Comment: Specimen Type: BLOOD SPECIMEN Ordering Facility: [facility] Address: [address] [place], [place] [address]Performed By: #### 36762-6, 27110-2 #### [facility] CLIA [id number] [address] [place] [address] 99242UG FOOT RT MIN 3Von 72-48-6000[address] [address] XRay Report Signed Patient: GENESIS DARBY MR#: [id number] : 1945 Acct:[id number] Age/Sex: 79 / F ADM Date: 03/21/24 Loc: SURGOUT Attending Dr: Brown Monge D.P.M. Ordering Physician: Brown Monge D.P.M. Date of Service: 03/21/24 Procedure(s): XR foot RT min 3V Accession Number(s): [id number] cc: Shaikh Amelie Sales; Brown Monge D.P.M. The [address] [address] Patient Name: GENESIS DARBY MRN: TBH:[id number] date: 1945 Sex: F Assigned Patient Location: [facility] Current Patient Location: Accession/Order Number: [id number] Exam Date: 03/21/2024 08:50 Report Date: 03/22/2024 04:18 At the request of: BROWN MONGE Procedure: XR foot RT min 3V PROCEDURE: XR foot RT min 3V HISTORY: 2nd hammertoe s/p amputation COMPARISON: XR foot right 02/01/2024 FINDINGS: BONES:Amputation of second toe at level of mid proximal phalanx. Remnant wire within first metatarsal from prior pinning. No fracture, dislocation, bone lesion. Moderate degenerative changes of the first metatarsophalangeal joint. SOFT TISSUES:Distal dorsal soft tissue swelling. EFFUSION:None visible. OTHER: Negative. XR/XR foot RT min 3V IMPRESSION: 1. Interval amputation of second toe. 2. No acute findings or evidence of osteomyelitis. Electronically authenticated by: KARTIK CIFUENTES Date: 03/22/2024 04:18 Dictated By: Kartik Cifuentes M.D. Signed By: 03/22/240 DD/ 0418 TD/TT: Laminator Preforms:TBHRadiology, Radiologist, MD - 03/22/2024 [place] [address] XRay Report Signed Patient: GENESIS DARBY MR#: [id number] : 1945 Acct:[id number] Age/Sex: 79 / F ADM Date: 03/21/24 [facility] Attending Dr: Brown Monge D.P.M. Ordering Physician: Brown Monge D.P.M. Date of Service: 03/21/24 Procedure(s): XR foot RT min 3V Accession Number(s): [id number] cc: Shaikh Amelie Sales; Brown Monge D.P.M. The [place] [address] Patient Name: GENESIS DARBY MRN: [facility]:[id number] date: 1945 Sex: F Assigned Patient Location: [facility] Current Patient Location: Accession/Order Number: [id number] Exam Date: 03/21/2024 08:50 Report Date: 03/22/2024 04:18 At the request of: BROWN MONGE Procedure: XR foot RT min 3V PROCEDURE: XR foot RT min 3V HISTORY: 2nd hammertoe s/p amputation COMPARISON: XR foot right 02/01/2024 FINDINGS: BONES:Amputation of second toe at level of mid proximal phalanx. Remnant wire within first metatarsal from prior pinning. No fracture, dislocation, bone lesion. Moderate degenerative changes of the first metatarsophalangeal joint. SOFT TISSUES:Distal dorsal soft tissue swelling. EFFUSION:None visible. OTHER: Negative. XR/XR foot RT min 3V IMPRESSION: 1. Interval amputation of second toe. 2. No acute findings or evidence of osteomyelitis. Electronically authenticated by: KARTIK CIFUENTES Date: 03/22/2024 04:18 Dictated By: Kartik Cifuentes M.D. Signed By: 03/22/24419 DD/ 7 TD/TT: Laminator Preforms: LILY HealthcareRadiology Study observation (narrative)NOMS HealthcareXR FOOT RT MIN 3VOrdered By: Radiologist Radiology on 75-31-8089WDM[facility] Work Phone: Lon 95-51-8851OIgslifcj: [id number] Received: 03/21/241416 Status: IVY Jones Num: [id number] Spec Type: Surgical Subm Dr: Brown Monge DPM, MS Tissues: A DIGIT AMPUTATION (RT 2ND TOE) Procedures: HE/2, Gross/Micro L4, Decalcification Age/ Patient Sex Location Account Attending Physician Genesis Darby 79/F LABELL [id number] Brown Monge DPM, MS SPEC NUM: [id number] RECD: 03/21/24 STATUS: IVY JONES NUM: [id number] JACE: 03/21/[address]: Brown Monge DPM, MS ENTERED: 03/21/24 [facility] DR: Luther,Lab SPEC TYPE: Surgical DEPT: TEX WHEELER ORDERED: [...] impingement injury of the hammertoe Clinical Information [facility] Centerertoe right foot Gross Description Received in formalin [...] bone submitted following decalcification in A1. TW Specimen: [id number] Received: 03/21/24 Status: IVY Greyabhilash Num: [id number] Spec Type: Surgical Subm Dr: Brown Monge,JAMEL, MS Tissues: A DIGIT AMPUTATION (RT 2ND TOE) Procedures: HE/2, Gross/Micro L4, Decalcification Patient: Genesis Darby [id number] (Continued) Specimen: [id number] Received: 03/21/24 (Continued) Signed (signature on file) Velasquez Pal MD 03/26/24 2051 Specimen: [id number] Received: 03/21/24 Status: IVY Jones Num: [id number] Spec Type: Surgical Subm Dr: Brown Monge,DPM, MS Tissues: A DIGIT AMPUTATION (RT 2ND TOE) Procedures: HE/2, Gross/Micro L4, Decalcification Patient: Genesis Darby [id number] (Continued) Specimen: [id number] Received: 03/21/24 (Continued) Microscopic Description Microscopic examinations are performed CPT Codes 92604 44163 Specimen: [id number] Received: 03/21/24 Status: IVY Jones Num: [id number] Spec Type: Surgical Subm Dr: Brown Monge DPM, MS Tissues: A DIGIT AMPUTATION (RT 2ND TOE) Procedures: HE/2, Gross/Micro L4, Decalcification Patient: Genesis [id number] (Continued) Signed (signature on file) Velasquez Pal MD 03/26/[address] [place] [address] Physician GroupECG 12-LEADon 22-34-[place] [address] Electrocardiograph Report Signed Patient: GENESIS DARBY MR#: [id number] : 1945 Acct:[id number] Age/Sex: 79 / F ADM Date: 03/11/24 Loc: PST Attending Dr: Brown Monge D.P.M. Ordering Physician: Brown Monge D.P.M. 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 Signed By: 03/13/24 1314 DD/ 1132 TD/TT: Laminator Preforms:TBHRadiology, Radiologist, MD - 03/13/2024 [place] [address] Electrocardiograph Report Signed Patient: GENESIS DARBY MR#: [id number] : 1945 Acct:[id number] Age/Sex: 79 / F ADM Date: 03/11/24 Loc: PST Attending Dr: Brown Monge D.P.M. Ordering Physician: Brown Monge D.P.M. 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 Signed By: 03/13/24 1314 DD/ 1132 TD/TT: Laminator Preforms: LILY Chaidez 12-LEADOrdered By: Radiologist Radiology on 78-51-9930YQAUNorth Kansas City Hospital Work Phone: ECG 12-LEADon 24-94-9116Lcrhpmtbg Study observation (narrative)LILY [facility] HospitalXR FOOT RT MIN 3Von 33-77-9483OjjFrank[place] [address] XRay Report Signed Patient: GENESIS DARBY MR#: [id number] : 1945 Acct:[id number] Age/Sex: 79 / F ADM Date: 02/01/24 Loc: Attending Dr: Gaby Mosley Ordering Physician: Gaby Mosley Date of Service: 02/01/24 Procedure(s): XR foot RT min 3V Accession Number(s): [id number] cc: Shaikh Amelie Sales; Gaby Mosley [place] [id number] Patient Name: GENESIS DARBY MRN: [facility]H:[id number] date: 1945 Sex: F Assigned Patient Location: Current Patient Location: Accession/Order Number: [id number] Exam Date: 02/01/2024 13:12 Report Date: 02/02/2024 08:43 At the request of: GABY MOSLEY Procedure: XR foot RT min 3V PROCEDURE: XR foot RT min 3V COMPARISON: None. HISTORY: RIGHT FOOT PAIN FINDINGS: BONES:Evidence of prior shave osteotomy along the medial head of the first metatarsal. Single fixation wire in the first metatarsal. No acute fracture or dislocation. Mild first metatarsal-phalangeal joint osteoarthropathy. Mild varus of the second third and fourth toes SOFT TISSUES:Negative. No visible soft tissue swelling. EFFUSION:None visible. OTHER: Negative. XR/XR foot RT min 3V IMPRESSION: No acute abnormality Electronically authenticated by: MAMIE FREEMAN Date: 02/02/2024 08:43 Dictated By: Mamie Freeman M.D. Signed By: 02/02/2446 DD/ 2 TD/TT: Laminator Preforms:MATHEUSadiologforrest Radiologist, - 02/02/2024 [place] [address] XRay Report Signed Patient: GENESIS DARBY MR#: [id number] : 1945 Acct:[id number] Age/Sex: 79 / F ADM Date: 02/01/24 Loc: Attending Dr: Gaby Mosley Ordering Physician: Gaby Mosley Date of Service: 02/01/24 Procedure(s): XR foot RT min 3V Accession Number(s): [id number] cc: Shaikh Amelie Sales; Gaby oMsley The [place] [address] Patient Name: GENESIS DARBY MRN: [facility]:[id number] date: 1945 Sex: F Assigned Patient Location: Current Patient Location: Accession/Order Number: [id number] Exam Date: 02/01/2024 13:12 Report Date: 02/02/2024 08:43 At the request of: GABY MOSLEY Procedure: XR foot RT min 3V PROCEDURE: XR foot RT min 3V COMPARISON: None. HISTORY: RIGHT FOOT PAIN FINDINGS: BONES:Evidence of prior shave osteotomy along the medial head of the first metatarsal. Single fixation wire in the first metatarsal. No acute fracture or dislocation. Mild first metatarsal-phalangeal joint osteoarthropathy. Mild varus of the second third and fourth toes SOFT TISSUES:Negative. No visible soft tissue swelling. EFFUSION:None visible. OTHER: Negative. XR/XR foot RT min 3V IMPRESSION: No acute abnormality Electronically authenticated by: MAMIE FREEMAN Date: 02/02/2024 08:43 Dictated By: Mamie Freeman M.D. Signed By: 02/02/24845 DD/ 2 TD/TT: Laminator Preforms: LILY HealthcareRadiology Study observation (narrative)LILY HealthcareXR FOOT RT MIN 3VOrdered By: Radiologist Radiology on 56-85-8568IZQJ Healthcare Work Phone: Lon [phone]: Received: 12/12/231350 Status: IVY Jones Num: [id number] Spec Type: Impression Subm Dr: Guillermo Leroy MD Tissues: PATHPER Procedures: PATHREVIEW Age/ Patient Sex Location Account Attending Physician Genesis Darby 78/F LABELL [id number] Guillermo Leroy MD SPEC NUM: RECD: 12/12/23 STATUS: IVY JONES NUM: [id number] JACE: 12/11/[address]: Guillermo Leroy MD ENTERED: 12/12/[address]: Luther,Carmen SPEC TYPE: Impression DEPT: TEX Baldwin ENTERED BY: [id number] RECV BY: [id number] ORDERED: PATHREVIEW ORDERED: PATHREVIEW Pathologist Review Frequent atypical lymphocytes are noted. Atypical infection should be ruled out. [address] Specimen: Received: 12/12/23 Status: IVY Jones Num: [id number] Spec Type: Impression Subm Dr: Guillermo Leroy MD Tissues: PATHPER Procedures: PATHREVIEW Patient: Genesis Darby [id number] (Continued) Signed (signature on file) Rudolph Meneses MD 12/13/[address] [place] [address] Physician GroupXR CHEST 2Von 34-02-5580WwfFrankfort, [place] [address] XRay Report Signed Patient: GENESIS DARBY MR#: [id number] : 1945 Acct:[id number] Age/Sex: 78 / F ADM Date: 11/14/23 Loc: RAD Attending Dr: Shaikh Mónica Kinsey Ordering Physician: Shaikh Amelie Sales Date of Service: 11/14/23 Procedure(s): XR chest 2V Accession Number(s): [id number] cc: Shaikh Amelie Sales [address] [address] Patient Name: GENESIS DARBY MRN: [facility]:[id number] date: 1945 Sex: F Assigned Patient Location: RAD Current Patient Location: RAD Accession/Order Number: [id number] Exam Date: 11/14/2023 12:55 Report Date: 11/14/2023 14:35 At the request of: SHAIKH MÓNICA Procedure: XR chest 2V EXAM: XR chest 2V HISTORY: Acute Upper Respiratory Infection J06.9 COMPARISON: None. TECHNIQUE: PA and lateral views of the chest. FINDINGS: The cardiomediastinal silhouette is normal. No focal consolidation is identified. There is no pneumothorax. No pleural effusion is noted. The osseous structures are intact. XR/XR chest 2V IMPRESSION: No acute cardiopulmonary process. Electronically authenticated by: KRISTEN LLAMAS Date: 11/14/2023 14:35 Dictated By: Kristen Llamas M.D. Signed By: 11/14/23 1437 DD/ 1435 TD/TT: Laminator Preforms:TBHRadiology, Radiologist, - 11/14/2023 [place] [address] XRay Report Signed Patient: GENESIS DARBY MR#: [id number] : 1945 Acct:[id number] Age/Sex: 78 / F ADM Date: 11/14/23 Loc: RAD Attending Dr: Shaikh Mónica Kinsey Ordering Physician: Shaikh Amelie Sales Date of Service: 11/14/23 Procedure(s): XR chest 2V Accession Number(s): [id number] cc: Shaikh Amelie Sales The [place] [address] Patient Name: GENESIS DARBY MRN: [facility]:[id number] date: 1945 Sex: F Assigned Patient Location: RAD Current Patient Location: RAD Accession/Order Number: [id number] Exam Date: 11/14/2023 12:55 Report Date: 11/14/2023 14:35 At the request of: SHAIKH MÓNICA Procedure: XR chest 2V EXAM: XR chest 2V HISTORY: Acute Upper Respiratory Infection J06.9 COMPARISON: None. TECHNIQUE: PA and lateral views of the chest. FINDINGS: The cardiomediastinal silhouette is normal. No focal consolidation is identified. There is no pneumothorax. No pleural effusion is noted. The osseous structures are intact. XR/XR chest 2V IMPRESSION: No acute cardiopulmonary process. Electronically authenticated by: KRISTEN LLAMAS Date: 11/14/2023 14:35 Dictated By: Kristen Llamas M.D. Signed By: 11/14/23 1437 DD/ 34 TD/TT: Laminator Preforms: [facility] HealthcareRadiology Study observation (narrative)NOM HealthcareXR CHEST 2V Ordered By: Radiologist Radiology on 36-77-9034OGLQ [employer] Work Phone: MG MAMM SCREEN 3D JUAN MANUEL CADon 06-88-0550IX MAMM SCREEN 3D JUAN MANUEL CADPatient: GENESIS DARBY Exam Date: 07/06/2022 : 1945 Gender:F Ordering : DR EFRAIN HOGAN DJeremy Admission #: [id number] Family : Order #: [id number] CLICK HERE TO VIEW EXAM RADIOLOGY REPORT [...] unknown cancer at age 69. LOCATION: [facility] BREAST COMPOSITION: Heterogeneously dense,which may obscure [...] by: Mamie Freeman MD on 07/06/2022 at 15:13NormTriHealth McCull[facility] AUTO DIFFon 83-74-6096IFHF #0.1 103/ulNormal0.0-0.1The [facility] SystemComment on above:Performed By: #### CBC #### [facility] [address] [place] [address] Dr. Suzi PalBasophils/100 WBC (Bld)1.2 %Normal0.2-2.0[place] Comment on above:Performed By: #### CBC #### [facility] [address] [place] [address] Dr. Suzi Bradshaw #0.3 103/ulNormal0.0-0.7The [facility] SystemComment on above: Performed By: #### CBC #### [facility] [address] [place] [address] Dr. Suzi Cortesosinophils/100 WBC (Bld)2.5 %Normal0.9-7.0[place] Comment on above:Performed By: #### CBC #### [facility] [address] [place] [address] Dr. Suzi Cortesrythrocyte distribution width (RBC) [Ratio]14.6 %Sgttmt69.0-15.0 The [facility] SystemComment on above:Performed By: #### CBC #### [facility] [address] [place] [address] Dr. Suzi PalHematocrit (Bld) [Volume fraction]43.7 %Wgbhis35.0-48.0The [facility] SystemComment on above:Performed By: #### CBC #### [facility] [address] [place] [address] Dr. Suzi PalHemoglobin (Bld) [Mass/Vol]14.5 g/mPYroain22.0-16.0CentervilleComment on above:Performed By: #### CBC #### [facility] [address] [place] [address] Dr. Suzi Morel #0.03 10e3/ulNormal0.00-0.03The [facility] SystemComment on above:Performed By: #### CBC #### [facility] [address] [place] [address] Dr. Suzi Morel %0.3 %Normal0.0-0.5The [facility] SystemComment on above: Performed By: #### CBC #### [facility] [address] [place] [address] Dr. Suzi Jimenez #4.6 103/ulCritically high1.2-3.8The [facility] Comment on above:Performed By: #### CBC #### [facility] [address] [place] [address] Dr. Suzi Pollackhocytes/100 WBC (Bld)44.0 %Wqkzyr07.5-60.0The [facility] SystemComment on above:Performed By: #### CBC #### [facility] [address] [place] [address] Dr. Suzi PepeTRUMBULL [facility] DIFF REQNONormalThe [facility] SystemComment on above: Performed By: #### CBC #### [facility] [address] [place] [address] Dr. Suzi Cotto (RBC) [Entitic mass]32.4 jiMduiil79.7-34.0The [facility] SystemComment on above:Performed By: #### CBC #### [facility] [address] [place] [address] Dr. Suzi Saldana (RBC) [Mass/Vol]33.2 g/vVAnxdqg52.9-35.2The [facility] SystemComment on above:Performed By: #### CBC #### [facility] [address] [place] [address] Dr. Suzi Saldana (RBC) [Entitic vol]97.8 yGDkegkv00.0-99.0The [facility] SystemComment on above:Performed By: #### CBC #### [facility] [address] [place] [address] Dr. Suzi Pruitt #1.1 103/ulCritically high0.3-0.8The [facility] Comment on above:Performed By: #### CBC #### [facility] [address] [place] [address] Dr. Suzi Blackocytes/100 WBC (Bld)10.5 %Normal1.7-12.0[facility] Comment on above:Performed By: #### CBC #### [facility] [address] [place] [address] Dr. Suzi Mancilla #4.3 103/ulNormal1.4-6.5The [facility] SystemComment on above:Performed By: #### CBC #### [facility] [address] [place] [address] Dr. Suzi Burchutrophils/100 WBC (Bld)41.5 %Critically low43.0-75.0The [facility] SystemComment on above:Performed By: #### CBC #### [facility] [address] [place] [address] Dr. Suzi Jensen mean volume (Bld) [Entitic vol]8.9 fLCritically low 9.5-13.5The [facility] SystemComment on above:Performed By: #### CBC #### [facility] [address] [place] [address] Dr. Suzi PalPLT414 103/rpDpmnhs355-608Qdh [facility] SystemComment on above: Performed By: #### CBC #### [facility] [address] [place] [address] Dr. Suzi PalRBC4.47 106/ulNormal4.20-5.40The [facility] SystemComment on above:Performed By: #### CBC #### [facility] [address] [place] [address] Dr. Suzi PalWBC10.4 103/ulNormal4.0-11.0The [facility] SystemComment on above:Performed By: #### CBC #### [facility] [address] [place] [address] Dr. Suzi Espinoza 14(COMP METB)on 76-10-8692Rlxkqje [Mass/Vol]3.8 g/dLNormal 3.4-5.0The [facility] Hospitalment on above:Performed By: #### T4, CMP, TSH #### [facility] [address] [address] [address] Suiz PalAlbumin/Globulin [Mass ratio]0.9 {ratio}NormalThe [facility] SystemComment on above:Performed By: #### T4, CMP, TSH #### [facility] [address] [address] [address] Suzi LemusP [Catalytic activity/Vol]68 U/ALijyip48-395Hzh [facility] Hospitalment on above:Performed By: #### T4, CMP, TSH #### [facility] [address] [address] [address] Suzi Mathur [Catalytic activity/Vol]23 U/FRhyutg22-56Tfi [facility] SystemComment on above:Performed By: #### T4, CMP, TSH #### [facility] [address] [address] [address] Suzi Pitts gap [Moles/Vol]11.0 mmol/LNormalThe [facility] Comment on above:Performed By: #### T4, CMP, TSH #### [facility] [address] [address] [address] Suzi PalAST [Catalytic activity/Vol]16 U/GYnmiux20-16Uxc [facility] Hospitalment on above:Performed By: #### T4, CMP, TSH #### [facility] [address] [address] [address] Suzi PlaBilirubin [Mass/Vol]0.5 mg/dLNormal0.2-1.0The [facility] Comment on above:Performed By: #### T4, CMP, TSH #### [facility] [address] [address] [address] Suzi PalCalcium [Mass/Vol]9.6 mg/dLNormal8.5-10.1The [facility] Comment on above:Performed By: #### T4, CMP, TSH #### [facility] [address] [address] [address] Suzi PalChloride [Moles/Vol]103 mmol/HPghtjs14-462Eis [facility] Comment on above:Performed By: #### T4, CMP, TSH #### [facility] [address] [address] [address] Suzi PalCO2 [Moles/Vol]31.8 mmol/WUtobbb03.0-32.0The [facility] Comment on above:Performed By: #### T4, CMP, TSH #### [facility] [address] [address] [address] Suzi PalCreatinine [Mass/Vol]0.75 mg/dLNormal0.55-1.02CentervilleComment on above:Performed By: #### T4, CMP, TSH #### [facility] [address] [address] [address] Suzi CortesGFR-AF CUBAN>60Normal>=60The [facility] SystemComment on above:Performed By: #### T4, CMP, TSH #### [facility] [address] [address] [address] Suzi Marquez-NON AF CUBAN>60Normal>=60The [facility] SystemComment on above:Performed By: #### T4, CMP, TSH #### [facility] [address] [address] [address] Suzi PalGlobulin (S) [Mass/Vol]4.0 g/dLNormalThe [facility] SystemComment on above:Performed By: #### T4, CMP, TSH #### [facility] [address] [place] [address] Dr. Suzi PalGlucose [Mass/Vol]88 mg/xQSmjtzl44-855Ftf [facility] Comment on above:Performed By: #### T4, CMP, TSH #### [facility] [address] [place] [address] Dr. Suzi PalPotassium [Moles/Vol]3.8 mmol/LNormal3.5-5.1The [facility] Comment on above:Performed By: #### T4, CMP, TSH #### [facility] [address] [place] [address] Dr. Suzi PalProtein [Mass/Vol]7.8 g/dLNormal6.4-8.2The [facility] Comment on above:Performed By: #### T4, CMP, TSH #### [facility] [address] [place] [address] Dr. Suzi PalSodium [Moles/Vol]142 mmol/ZHsjlym290-387Sxo [facility] Comment on above:Performed By: #### T4, CMP, TSH #### [facility] [address] [place] [address] Dr. Suzi PalUrea nitrogen [Mass/Vol]15.0 mg/dLNormal7.0-18.0The [facility] SystemComment on above:Performed By: #### T4, CMP, TSH #### [facility] [address] [place] [address] Dr. Suzi Gallardo nitrogen/Creatinine [Mass ratio]20.0 mg/mgNormalThe [facility] Health SystemComment on above:Performed By: #### T4, CMP, TSH #### [facility] [address] [place] [address] Dr. Suzi Macias 36-95-3616D3 [Mass/Vol]7.80 ug/dLNormal4.80-13.90The [facility] SystemComment on above:Performed By: #### T4, CMP, TSH #### [facility] [address] [place] [address] Dr. Suzi Cotto 54-82-5925NTT7.655 uIU/mLNormal0.358-3.740The [facility] SystemComment on above:Performed By: #### T4, CMP, TSH #### [facility] [address] [place] [address] Dr. Suzi Pal Vital Signs Date TimeVital SignValuePerforming BoobekbpwYvjlhwyt34-27-6939 15:07-0400Body cmHilary Timmis MD Work Phone: [phone] [place], [place] 7770310-29-2025 15:07-0400Body mass index (BMI) [Ratio]28.7 kg/l7ZeoflfNu Enriquez MD Work Phone: 1(857)[address] [place] [address]-29-2025 15:07-0400Body wmrvfe53.48 kgNu Enriquez MD Work Phone: [phone] [place] [address]-29-2025 15:07-0400Diastolic blood txlydljd03 mm[Hg]Nu Enriquez MD Work Phone: 1([phone])[address] [place] [address]-29-2025 15:07-0400Heart rate92 /min Nu Enriquez MD Work Phone: [phone] [place] [address]-29-2025 15:07-0400Systolic blood znrogrir217 mm[Hg]Nu Enriquez MD Work Phone: 1(015)[address] [place], [place] 7770309-30-2025 13:26-0400Body ikhpfr356 cm Nu Enriquez MD Work Phone: 1(527)[address] [place], [place] 7770309-30-2025 13:26-0400Body mass index (BMI) [Ratio]28.7 kg/m7AbkpecNu Enriquez MD Work Phone: 1(701)[address] [place], [place] 7770309-30-2025 13:26-0400Body tpmwhi83.48 kgNu Enriquez MD Work Phone: 1([phone])[address] [place], [place] 7770309-30-2025 13:26-0400Diastolic blood ygbphpse82 mm[Hg]Nu Enriquez MD Work Phone: 1(163)[address] [place] [address]-30-2025 13:26-0400Heart ehfa851 /min Nu Enriquez MD Work Phone: 1(312)[address] [place], [place] 7770309-30-2025 13:26-0400Systolic blood epmaimfw349 mm[Hg]Nu Enriquez MD Work Phone: 1(257)[address] [place], [place] 7770309-18-2025 10:47-0400Body wlowcz841.29 cmSon Loza MD Work Phone: [facility]09-18-2025 10:47-0400 Body mass index (BMI) [Ratio]28.2 kg/m2Son Loza MD Work Phone: [facility]09-18-2025 10:47-0400 Body vyjdnphwzfd89.9 [degF]Son Loza MD Work Phone: [phone]09-18-2025 10:47-0400 Body aucvos56.48 kgSon Loza MD Work Phone: [phone])[address]09-18-2025 10:47-0400 Diastolic blood rymllogy09 mm[Hg]Son Loza MD Work Phone: [phone])[address]09-18-2025 10:47-0400 Heart rate82 /minSon Loza MD Work Phone: 1(058)156-[address] [place], [place] 5540309-18-2025 10:47-0400 Respiratory rate20 /minSon Loza MD Work Phone: [phone]09-18-2025 10:47-0400 SaO2% (BldA) [Mass fraction]97 %Son Loza MD Work Phone: [facility]09-18-2025 10:47-0400 Systolic blood jdzqzxsa941 mm[Hg]Son Loza MD Work Phone: [facility]09-12-2024 10:44-0400 Body cmAminta Randall MD Work Phone: [facility]09-12-2024 10:44-0400Body mass index (BMI) [Ratio]28.31 kg/u2HoeouAminta Randall MD Work Phone: [facility]09-12-2024 10:44-0400Body temperature 97.7 [degF]Aminta Randall MD Work Phone: [facility]09-12-2024 10:44-0400Body wojupl16.5 kgAminta Randall MD Work Phone: [facility]09-12-2024 10:44-0400Diastolic blood maveeutr84 mm[Hg]Aminta Randall MD Work Phone: [facility]09-12-2024 10:44-0400Heart ltjt474 /minAminta Randall MD Work Phone: [facility]09-12-2024 10:44-0400Respiratory rate 16 /minAminta Randall MD Work Phone: [facility]09-12-2024 10:44-8520KmP2% (BldA) [Mass fraction]94 %Aminta Randall MD Work Phone: [facility]09-12-2024 10:44-0400Systolic blood mdxhwecs293 mm[Hg]Aminta Randall MD Work Phone: [facility] Encounters Encounter DateEncounter TypeCare ProviderFacilityStart: 06-18-2025 End: 36-08-9030Eaxfyk outpatient visit 15 minutesHiester Enriquez MD Work Phone: [facility] [place] OtolaryngologyComment on above:Chronic rhinitis (Primary Dx)Start: 06-18-2025 End: 60-54-8811fnzljfpfgdUXPXXR Ac ENRIQUEZNot AvailableStart: 06-18-2025 End: 48-38-8542Yybdoz flowsheetHiester Enriquez MD Work Phone: [facility] [place] OtolaryngologyStart: 06-18-2025 End: 45-39-6065Rcyyre flowsheetHiester Enriquez MD Work Phone: [facility] [place] OtolaryngologyStart: 05-20-2025 End: 96-78-0100Nlrgoo flowsheetNu Enriquez MD Work Phone: [facility] [place] OtolaryngologyStart: 05-20-2025 End: 08-00-6600Pefhuj flowsheetNu Enriquez MD Work Phone: [facility] [place] OtolaryngologyStart: 05-20-2025 End: 32-75-8905Wocybb outpatient new 45 minutesNu Enriquez MD Work Phone: [facility] [place] OtolaryngologyComment on above:Chronic rhinitis (Primary Dx)Start: 05-20-2025 End: 12-01-6256wwawrzqhxvJQIXJJ H TIMMISNot AvailableStart: 23-75-9714Badalkw encounter procedureSon Loza MD [facility] Phone: [facility]2025 End: 08-24-7158hrrlbgkuenPnfv Naderer MD Work Phone: [facility] Work Phone: Start: 05-08-2025 End: 93-75-4734Rfqmmjc encounter procedureSon Loza MD-[facility] [place] Work Phone: Start: 07-10-2024 End: 78-67-3025Rftztftij Result EncounterBrittany Pugh P[employer]OWCASE C[employer]TER Other Phone: noms External Department UnsolicitedStart: 07-10-2024 End: 78-53-0948Ckbatjbtw Result EncounterBrittany Pugh PILLOWCASE CUTTER Other Phone: noms External Department UnsolicitedStart: 06-24-2024 End: 45-11-0888Sxqpkd OnlyBrittany Pugh P[employer]OWCASE CUTTER Work Phone: noms CW FMComment on above:Screening for colon cancer (Primary Dx)Start: 05-02-2024 End: 47-71-5552Xenwigp encounter procedureAminta Randall MD Work Phone: Hematology/OncologyStart: 05-02-2024 End: 88-71-5323nlresggpywVhedx R Murphy MD Work Phone: Hematology/OncologyComment on above:Leukocytosis, unspecified type (Primary Dx); Postsplenectomy thrombocytosis; History of lymphomaStart: 03-22-2024 End: 92-11-9631Efjacbyer Result EncounterGeneric External Data ProviderNOMS External Department UnsolicitedStart: 03-22-2024 End: 18-41-9480Mjyqptqtt Result EncounterGeneric External Data ProviderNOMS External Department UnsolicitedStart: 03-21-2024 End: 68-79-8995clbhlpmcopPvfaq D [facility] Work Phone: Start: 03-21-2024 End: 93-08-0574Wzgoavgg ReferredDPM Brown Monge Work Phone: [facility] Path Spec [place] HospStart: 03-11-2024 End: 45-62-7284Sagzhbncn Result EncounterGeneric External Data ProviderNOMS External Department UnsolicitedStart: 03-11-2024 End: 49-91-7186Xvkshxril Result EncounterGeneric External Data ProviderNOMS External Department UnsolicitedStart: 89-79-5421Pvzifch encounter procedure Bonita Pugh NP Work Phone: noms HealthcareStart: 02-02-2024 End: 80-97-8200Eotdeytzq Result EncounterGeneric External Data ProviderNOMS External Department UnsolicitedStart: 02-02-2024 End: 78-53-5902Bhazhjlgs Result EncounterGeneric External Data ProviderNOMS External Department UnsolicitedStart: 12-11-2023 End: 47-57-5640ykmdtkjphvIfwmtfo [facility] Work Phone: Start: 12-11-2023 End: 33-52-6232Ciawnlyd ReferredMD Guillermo Leroy Work Phone: [facility] [place] HospStart: 11-14-2023 End: 84-24-2066Kkpxdomkn Result Silvina Sales MD Work Phone: n[facility] External Department UnsolicitedStart: 11-14-2023 End: 47-64-3860Jhnyxcmjm Result Silvina Sales MD Work Phone: [facility] External Department UnsolicitedStart: 07-06-2022 End: 67-02-9026pvwetgdaupKF MAMIE V WESTFacility:Z3Qsndu: 06-08-2022 End: 97-82-9402gbjouldwkiSR EFRAIN HOUSEFacility:H1 Procedures DateProcedureProcedure DetailPerforming ClinicianStart: 68-92-4316PC TOMOSYNTHESIS SCREENING Bonilla Pugh P[employer]OWCASE CUTTER Other Phone: Start: 22-45-8771TF FOOT RT MIN 3VGeneric External Data ProviderStart: 69-42-2104UGM 12-LEADGeneric External Data ProviderStart: 96-95-8942OA FOOT RT MIN 3VGeneric External Data ProviderStart: 31-79-3891AI CHEST 2Jean Sales MD Work Phone: Plan of Treatment DateCare ActivityDetailAuthorStart: 06-18-2025 End: 12-63-8789Tarxakg encounter ewxgdysnh39/29/2025 3:20 PM EDT Office Visit [facility] [place] [facility] [address] [place] [address] Nu Enriquez MD [address] [place] [address] ArrivedNOMS [place] OtolaryngologyComment on above:ArrivedStart: 05-20-2025 End: 32-93-9991Xoxctyi encounter yoesjaffw04/30/2025 1:40 PM EDT Office Visit [facility] [place] [facility] [address] [place] [address] Nu Enriquez MD [address] [place] [address] ArrivedNOMS [place] OtolaryngologyComment on above:ArrivedStart: 61-34-4567Yuemfei referralLakehealth [facility]point Medical Center Work Phone: Start: 35-56-4422WINNH-19 Vaccine ( season) COVID-19 Vaccine ( season)NOM[facility] HealthcareStart: 07-08-2025Medicare Annual Wellness (AWV)Medicare Annual Wellness (AWV)[facility] HealthcareStart: 02-05-2025 End: 26-18-4423Pstmidi encounter buubnhaak50/18/2025 10:00 AM EDT Office Visit [facility] [address] [facility] [place] [address] Bonita Pugh NP [address] [place] [address] [facility] FMStart: 11-20-6527Dwvozpozqrwz Vaccine: 65+ Years (1 of 2 - PCV)Pneumococcal Vaccine: 65+ Years (1 of 2 - PCV)NOM HealthcareComment on above:Postponed from 01/21/1951 (Patient Does Not Have Time)Start: 06-24-2024 End: 61-91-0057Aodoguqkckh colorectal cancer DNA and occult blood screening [Presence] in StoolCologuard colon cancer screening Lab Routine Screening for colon cancer Expected: 06/24/2024 (Approximate), Expires: 06/24/2025[facility] Work Phone: Comment on above:Expected: 06/24/2024 (Approximate), Expires: 06/24/2025Start: 88-31-5565Lpyhwdgqf vaccinationInfluenza Vaccine (#1) [facility]: 54-81-4974Wpmjakg Directive DiscussionAdvance Directive DiscussionRegency Hospital Cleveland Easttart: 01-85-9086Orhydbsd ScreeningDiabetes Screening [facility]: 55-69-3174Kmdybujde for osteoporosisBone Density ScreeningRegency Hospital Cleveland Easttart: 41-04-4726MJR Vaccine (1 - 1-dose 60+ series)RSV Vaccine (1 - 1-dose 60+ series)[facility]: 79-09-0315Eemabxghyxli Vaccine: 65+ Years (1 of 1 - PCV)Pneumococcal Vaccine: 65+ Years (1 of 1 - PCV) [facility] HealthcareStart: 69-44-8554Ojtynrizpjyz Vaccine: 65+ Years (1 of 2 - PCV) Pneumococcal Vaccine: 65+ Years (1 of 2 - PCV)[facility] 01-[birth year][facility]1964 Shingrix Vaccine (1 of 2)Shingrix Vaccine (1 of 2)[facility]: 78-32-6577Xwtyf microalbumin profileDTaP,Tdap,Td Vaccine (1 - Tdap)[facility]: 73-15-4098Wyvrrnf ScreeningAnxiety ScreeningRegency Hospital [facility] Easttart: 95-22-6685Ukcxbsbnxr ScreeningDepression ScreeningRegency Hospital [facility] Easttart: 50-72-1529BOoS/Tdap/Td Vaccines (1 - Tdap)DTaP/Tdap/Td Vaccines (1 - Tdap)[facility]Start: 78-56-1118Szlpamvkoxjw Vaccine: 65+ (1 of 2 - PCV)Pneumococcal Vaccine: 65+ (1 of 2 - PCV)[facility]: 93-95-0474Graxp-19 Vaccine (#1)Covid-19 Vaccine (#1)[facility] HospitalComprehensive metabolic 2000 panel - Serum or PlasmaTrinity Health SystemPatient referralLakehealth Tripoint Medical Center Work Phone: [facility] Immunizations Immunization DateImmunizationNotesCare UefwbclxAhdtsrlx02-58-6001qpdfyfnge, seasonal, injectableBrittany Pugh PILLOWCASE CUTTER Work Phone: [facility] Payers DatePayer CategoryPayerPolicy [id number] 2024Self-pay [id number] 2024MedicareDEVOTED MEDICARE [facility] [id number] 2023-Present [phone] [address] [place], [place] [id number] 2024Medicare (Managed Care) [id number] [id number] [id number] [id number] [id number] [id number]rden City Hospital [id number] [id number] Social History DateTypeDetailFacilityTobacco smoking status NHISUnknown if ever smokedSelect Medical [facility] Work Phone: Start: 84-52-8068I[facility]: 10-30-2023 End: 32-08-5143Jtstlwz smoking status NHISNever smoked tobaccoMarymount Hospital Start: 10-30-2023 End: 11-40-7413Taxkqod use and exposureSmokeless tobacco non-userRegency Hospital [facility] Easttart: 53-69-4961Qdezmdbcj beverage intakeCurrent non-drinker of alcohol (finding)[facility]: 02-26-2024 End: 67-27-9440Wfnafci of Social functionRegency Hospital Cleveland Easttart: 02-26-2024 End: 97-93-6431Oyxvtxs use panelRegency Hospital Cleveland Easttart: 67-72-8382Emxqavlq Score (1-100), lower number is lower qcup29DIDR[address] [place], [place] [address]Start: 34-12-4182Ujd assigned at birthNot on fileRegency Hospital Cleveland Easttart: 11-13-2023 End: 22-77-8952Tqxqlgjzu beverage intakeLifetime non-drinker (finding)[facility] HealthcareSexFemale (finding)[facility] SystemNEGATED: Highlighted rowStart: NINFHistory of tobacco usePassive smokerMarymount Hospital Functional Status MmopJolszofaheHpophaFaygafwl25-17-2400Kmxnwxw Health Questionnaire 2 item (PHQ- 2) [Reported][facility] HospitalVuaxrcmwsi75-48-7221Mxalqkg Health Questionnaire 2 item (PHQ- 2) [Reported][facility] Clinical Notes 05-01-2024 to 06-18-2025 Note Date & KtjtTnuoTyihgmzz77-01-0408 History of Present illness Narrative* Nu Enriquez MD - 06/18/2025 3:20 PM EDT Subjective Patient ID: Genesis Darby is a 80 y.o. 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) 04/08/2014 Pharyngitis 10/30/2023 Non-recurrent acute suppurative otitis media of both ears without spontaneous rupture of tympanic membranes 10/30/2023 URTI (acute upper respiratory infection) 11/13/2023 Pain of toe of right foot 01/17/2024 Sprain of left ankle 01/17/2024 Medicare annual wellness visit, subsequent 02/26/2024 Lesion of nostril 05/19/2025 Resolved Ambulatory Problems Diagnosis Date Noted No Resolved Ambulatory Problems Past Medical History: Diagnosis Date Allergic rhinitis Diffuse large cell non-Hodgkin's lymphoma (HCC) GERD (gastroesophageal reflux disease) History of being hospitalized Reflux esophagitis Surgical History[2] Allergies[3] Medications Ordered Prior to Encounter[4] Objective Last Recorded Vitals Vitals: 06/18/25 1507 BP: 138/76 Pulse: 92 ENT Physical Exam Nose Internal Nose: septum normal; Assessment/Plan Diagnoses and all orders for this visit: Chronic rhinitis Excellent response to tx. Should stop using bactroban regularly unless sx recur [1] Family History Problem Relation Name Age of Onset Hypertension Mother Heart disease Mother Cancer Mother Colon cancer Father Stroke Father Rectal cancer Father Breast cancer Sibling [2] Past Surgical History: Procedure Laterality Date BUNIONECTOMY Bilateral CATARACT EXTRACTION, BILATERAL Right Left 03/13/2025, Right 03/27/2025 CHOLECYSTECTOMY EYE SURGERY HERNIA REPAIR HYSTERECTOMY OTHER SURGICAL HISTORY lymphectomy from neck OTHER SURGICAL HISTORY rectocele repair SPLENECTOMY, TOTAL TUMOR REMOVAL Fatty tumor removed from side VEIN LIGATION AND STRIPPING BL legs [3] No Known Allergies [4] Current Outpatient Medications on File Prior to Visit Medication Sig Dispense Refill Ascorbic Acid (VITAMIN C ER PO) Take by mouth aspirin 81 MG EC tablet Take 81 mg by mouth Daily Docusate Calcium (STOOL SOFTENER PO) Take by mouth Inulin (FIBER CHOICE PO) Take by mouth loratadine (Claritin) 10 MG tablet Take 1 tablet (10 mg) by mouth Daily 30 tablet 2 Multiple Vitamin (multivitamin) tablet Take 1 tablet by mouth Daily Multiple Vitamins-Minerals (PRESERVISION AREDS 2 PO) Take by mouth mupirocin (Bactroban) 2 % ointment Apply to the left side of the nose twice daily for one month 15 g 1 omeprazole OTC (PriLOSEC OTC) 20 MG EC tablet Take 20 mg by mouth in the morning. Take before meals. Do not crush, chew, or split. Zinc Sulfate (ZINC 15 PO) Take by mouth [DISCONTINUED] albuterol HFA 90 mcg/act inhaler Inhale 2 puffs every 4 (four) hours if needed for wheezing 8.5 g 0 [DISCONTINUED] oxymetazoline (Afrin Nasal [place]) 0.05 % nasal spray Administer 2 sprays into each nostril every 12 (twelve) hours if needed for congestion for up to 2 days Do not use for more than 3 days. 30 mL 0 No current facility-administered medications on file prior to visit. documented in this encounterNorth Kansas City HospitalAuhdzoqwqs42-33-8615 History of Present illness Narrative* Nu Enriquez MD - 05/20/2025 1:40 PM EDT Subjective Patient ID: Genesis Darby is a 80 y.o. female who presents for nasal lesion (Nasal lesion) Pt reports a 15 year h/o a sore in the left nose that aggravates me . Frequently debrides crust from lesion. Salve in the past from Dr Hogan did not help. Review of Systems All other systems reviewed and are negative. 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) 04/08/2014 Pharyngitis 10/30/2023 Non-recurrent acute suppurative otitis media of both ears without spontaneous rupture of tympanic membranes 10/30/2023 URTI (acute upper respiratory infection) 11/13/2023 Pain of toe of right foot 01/17/2024 Sprain of left ankle 01/17/2024 Medicare annual wellness visit, subsequent 02/26/2024 Lesion of nostril 05/19/2025 Resolved Ambulatory Problems Diagnosis Date Noted No Resolved Ambulatory Problems Past Medical History: Diagnosis Date Allergic rhinitis Diffuse large cell non-Hodgkin's lymphoma (HCC) GERD (gastroesophageal reflux disease) History of being hospitalized Reflux esophagitis Past Surgical History: Procedure Laterality Date BUNIONECTOMY Bilateral CATARACT EXTRACTION, BILATERAL Right Left 03/13/2025, Right 03/27/2025 CHOLECYSTECTOMY EYE SURGERY HERNIA REPAIR HYSTERECTOMY OTHER SURGICAL HISTORY lymphectomy from neck OTHER SURGICAL HISTORY rectocele repair SPLENECTOMY, TOTAL TUMOR REMOVAL Fatty tumor removed from side VEIN LIGATION AND STRIPPING BL legs No Known Allergies Current Outpatient Medications on File Prior to Visit Medication Sig Dispense Refill albuterol HFA 90 mcg/act inhaler Inhale 2 puffs every 4 (four) hours if needed for wheezing 8.5 g 0 Ascorbic Acid (VITAMIN C ER PO) Take by mouth aspirin 81 MG EC tablet Take 81 mg by mouth Daily Docusate Calcium (STOOL SOFTENER PO) Take by mouth Inulin (FIBER CHOICE PO) Take by mouth Multiple Vitamin (multivitamin) tablet Take 1 tablet by mouth Daily Multiple Vitamins-Minerals (PRESERVISION AREDS 2 PO) Take by mouth omeprazole OTC (PriLOSEC OTC) 20 MG EC tablet Take 20 mg by mouth in the morning. Take before meals. Do not crush, chew, or split. Zinc Sulfate (ZINC 15 PO) Take by mouth loratadine (Claritin) 10 MG tablet Take 1 tablet (10 mg) by mouth Daily 30 tablet 2 oxymetazoline (Afrin Nasal [place]) 0.05 % nasal spray Administer 2 sprays into each nostril every 12(twelve) hours if needed for congestion for up to 2 days Do not use for more than 3 days. 30 mL 0 No current facility-administered medications on file prior to visit. Objective Last Recorded Vitals Vitals: 05/20/25 1326 BP: 144/80 Pulse: 105 ENT Physical Exam Constitutional Appearance: patient appears well-developed, well-nourished and well-groomed, Head and Face Appearance: head appears normal and face appears atraumatic; Ear Ear Canals: right ear canal normal; left ear canal normal; Tympanic Membranes: right tympanic membrane normal; left tympanic membrane normal; Nose External Nose: nares patent bilaterally; external nose normal; Nose comments: 5mm area of left ant septal crusting Oral Cavity/Oropharynx Tongue: normal; Oral mucosa: normal; Hard palate: normal; Soft palate: normal; Tonsils: normal; Neck Neck: neck normal; neck palpation normal; Thyroid: thyroid normal; Respiratory Inspection: breathing unlabored; normal breathing rate; Auscultation: breath sounds are clear; Cardiovascular Inspection: extremities are warm and well perfused; no peripheral edema present; Auscultation: regular rate and rhythm; Assessment/Plan Diagnoses and all orders for this visit: Chronic rhinitis Pt has a very long-term are of left septal excoriation. Tx with bactroban ointment one mo and do not debride at all documented in this encounterNorth [facility] City [id number] History of Present illness Narrative* Bonita Pugh NP - 06/24/2024 2:37 PM EST col documented in this encounterNorth Kansas City [id number] NoteHNO ID: [id number] Author: AMINTA RANDALL MD Service: ? Author Type: Physician Type: Progress Notes Filed: 05/02/2024 20:14 Note Text: PATIENT NAME: Genesis Darby DATE: 05/02/2024 PRIMARY CARE PHYSICIAN: Bonita Pugh APRN OTHER PHYSICIANS: Dr. Guillermo Leroy ([facility]) HPI: This is an 79 year [...] tissue swelling, and atrophy. PATHOLOGY: 12/13/2023 P niurka eripheral blood flow cytometry ([facility]) Mature granulocytes show lack of CD16 expression. Lymphocytosis. No other significant immunophenotypic abnormality detected. 08/28/2009 Splenectomy ([facility]) Findings consistent with large B- (more content not included)...[facility]09-11-2024 History of Present illness Narrative* Aminta Randall MD - 05/01/2024 5:44 PM EDT PATIENT NAME: Genesis Darby DATE: 05/02/2024 PRIMARY CARE PHYSICIAN: Bonita Pugh APRN OTHER PHYSICIANS: Dr. Guillermo Leroy ([facility]) HPI: This is an 79 year [...] of hematologic malignancy, and it was felt herabnormal CBC is secondary to her previous splenectomy. [...] cold or heat intolerance, urinary frequency, urinary hesitancy,menorrhagia, or hematuria. PSYCH: Negative for anxiety, depression, [...] the upper and lower extremities and face. Negativefor palpations/nodules, purpura, and ecchymosis. EENT: Negative for [...] joints, bones, muscles/tendons of all four extremities forinspection, percussion, and palpation. Negative for misallignment, asymmetry, crepitation, tenderness, mass, effusions. Range of motion normal. Negative for joint instability, laxity, dislocation. Gait steady. Negative for swelling, erythema, tenderness, soft tissue swelling, and atrophy. PATHOLOGY: 12/13/2023 P gucrystal eripheral blood flow cytometry ([facility]) Mature granulocytes show lack of CD16 expression. Lymphocytosis. No other significant immunophenotypic abnormality detected. 08/28/2009 Splenectomy ([facility]) Findings consistent with large B-cell lymphoma LABS: [...] ratio 1.83 RADIOLOGY/OTHER STUDIES: 04/19/2023 CT abdomen/pelvis ([facility]) No acute abnormality of the abdomen or [...] she develops any signs or symptoms of infection.Otherwise she does not need hematologic follow-up. We [...] CC: Bonita Pugh APRN documented in this encounterUC Healthalubayhealth [facility] noteNo assessment information availableSelect Medical [facility] Work Phone: Evaluation note* Diagnosis Leukocytosis, unspecified type- Primary Postsplenectomy thrombocytosis History of lymphoma Personal history of other lymphatic and hematopoietic neoplasm documented in this encounter [facility]* Diagnosis Diffuse large B-cell lymphoma, unspecified body region (CMS/HCC)- Primary Gastroesophageal reflux disease without esophagitis Esophageal reflux URTI (acute upper respiratory infection)- Primary Acute upper respiratory infections of unspecified site Medicare annual wellness visit, subsequent- Primary Screening for colon cancer- Primary Special screening for malignant neoplasms, colon documented in this encounter [facility] [place] HospitalEval[facility] note* Diagnosis Onset Date Resolution Status Admit Date Medicare annual wellness visit, subseque nt acuteMay 08, 2025 9:52am [facility] Work Phone: Evaluation note* Diagnosis Onset Date Resolution Status Admit Date Lesion of nostril acuteMay 08, 2025 9:52amMedicare annual wellness visit, subsequentacute May 08, 2025 9:52am [facility] Work Phone: Evaluation note* Diagnosis Diffuse large B-cell lymphoma, unspecified body region (HCC)- Primary Gastroesophageal reflux disease without esophagitis Esophageal reflux URTI (acute upper respiratory infection)- Primary Acute upper respiratory infections of unspecified site Medicare annual wellness visit, subsequent- Primary Chronic rhinitis- Primary documented in this encounter [facility] HealthcareEvaluation note* Diagnosis Diffuse large B-cell lymphoma, unspecified body region (HCC)- Primary Gastroesophageal reflux disease without esophagitis Esophageal reflux URTI (acute upper respiratory infection)- Primary Acute upper respiratory infections of unspecified site Medicare annual wellness visit, subsequent- Primary Chronic rhinitis- Primary documented in this encounter [facility] HealthcareHospital Discharge instructionsAmbulatory Orders* Referral to ENT Time Frame: 05/08/25, Location: None [facility] Work Phone: Reason for referral (narrative)No reason for referral information availableLakehealth Tripoint Medical Center Work Phone: Summary Purpose Family [...] and content) DATE CREATED AUTHOR 07/10/2022 [facility] DATE CREATED AUTHOR AUTHOR'S ORGANIZ ATION 03/29/2024 [facility] DATE CREATED AUTHOR AUTHOR'S ORGANIZ ATION 05/04/2024 [facility] DATE CREATED AUTHOR AUTHOR'S ORGANIZ ATION 06/20/2025 [facility] EPIC Care Teams (unrecognized sec tion and content) Team Status: Inactive Member Role Status Dates Guillermo Leroy MD Attending Provider Active St art: December 11, 2023 End: December 11, 2023 Team Status: Inactive Member Role Status Dates Brown Monge DPM MS Attending Provider Active Start: March 21, 2024 End: March 21, 2024Team MemberRelationshipSpecialtyStart DateEnd Date Bonita Pughole, JAVA [employer] DEVELOPER [address] [place], [place] [id number] [facility] - [facility]04/15/24Team MemberRelationshipSpecialtyStart DateEnd Date Shaikh Sales MD [address] [place] [phone] PCP - [facility]08/21/23 Son Loza MD [address] [place] [phone] PCP - [facility]06/24/24 Bonita Pugh NP [address] [place] [address] [facility]06/24/24 Team Status: Active Member Role Status Dates Son Loza MD Primary Care Provider Active Team Status: Inactive Member Role Status Dates Son Loza MD Primary Care Provider Active S tart: May 08, 2025 End: May 08, 2025[facility] [place] Lozattending ProviderActiveStart: May 08, 2025 End: May 08, 2025Team MemberRelationshipSpecialtyStart DateEnd Date Son Loza MD [address] [place] [address] PCP - [facility]05/14/25Team MemberRelationshipSpecialtyStart DateEnd Date Son Loza MD [address] [place] [address] PCP - [facility]05/14/25Team MemberRelationshipSpecialtyStart DateEnd Date Son Loza MD [address] [place] [phone] PCP - [facility]05/14/25Team MemberRelationshipSpecialtyStart DateEnd Date Son Loza MD [address] [place] [address] PCP - [facility]05/14/25Team MemberRelationshipSpecialtyStart DateEnd Date Shaikh Sales MD [address] [place] [phone] PCP - [facility]08/21/2411 Son Loza MD [address] [place] [address] PCP - [facility] Momwqayl07/4/249 Son Loza MD [address] [place] [address] [facility] - [facility]05/14/25 Bonita Pugh NP [address] [place] [phone] Nurse [facility] Wgpffrip09/4/243Team MemberRelationshipSpecialty Start DateEnd Date Shaikh Sales MD [address] [place] [phone] PCP - [facility]08/21/2411 Shaikh Sales MD [address] [place] [address] [facility] - [facility]10/29/2410 Son Loza MD [address] [place] [address] [facility] - [facility] Xsthprxw86/4/249 Son Loza MD [address] [place] [address] PCP - [facility]05/14/25 Bonita Pugh NP [address] [place] [address] Nurse PractitionerFavibra [facility] Iuqlfhib75/4/243 Goals (unrecognized section and content) Goals may [...] or prosecute any alcohol or drug abuse patient.[facility] Reason for Visit (unrecogniz ed section and content) ReasonCommentsLymphomaNew patient consultReasonCommentsnasal lesionNasal lesion SpecialtyDiagnoses / ProceduresReferred By ContactReferred To Contact Otolaryngology Diagnoses Other specified disorders of nose and nasal sinuses Procedures [place] UNLISTED EVALUATION AND MANAGEMENT SERVICE [facility] Physician [address] [place] [address] Phone: tel: fax: Nu Enriquez MD [address] [address] Phone: tel: fax: Referral IDStatusReasonStart DateExpiration DateVisits RequestedVisits [id number] Rhinitis FOR RECORDS PERTAINING TO PATIENTS WHO ARE [...] BE BASED ON THE PRIMARY CLINICAL RECORDS. [facility] [employer] [facility]. provides no warranty or guarantee of the accuracy or completeness of information in this document.
== END 2025-07-10 11:23 | disposition home or self-care (01) ==
LOC: MAMMO 11:22
PROVIDERS: PCP Family Medicine; Visit Provider Family Medicine
DX: Z12.31 Encounter for screening mammogram for malignant neoplasm of breast (principal); Z80.3 Family history of malignant neoplasm of breast; Z80.7 Family history of other malignant neoplasms of lymphoid, hematopoietic and related tissues; Z80.42 Family history of malignant neoplasm of prostate; Z80.8 Family history of malignant neoplasm of other organs or systems
CPT/HCPCS: 77063; 77067